=== PATIENT | female | born 1965 | race Caucasian/White ===

== ENCOUNTER 2018-03-16 14:00 | Inpatient (IN) | payer OTHER, MEDICAID, MEDICARE ==
[~2018-03-16] VITALS: Ht 170.2 cm; Wt 72.7 kg
[2018-03-16] VITALS (9 sets, daily range): BP systolic 90–149; BP diastolic 55–84; PULSE 100–114; RESP 16–22; TEMP 97.7–98.3; O2SAT 90–98
[2018-03-16] MEDS ORDERED: SODIUM CHLOR 0.9% 1000 ML INJ 1,000 ML IV SCH (14:45)
[2018-03-16] MEDS ORDERED: SODIUM CHLORIDE 0.9% FLUSH 10 ML FLUSH IV FLUSH PRN (14:45)
--- NOTE | 2018-03-16 15:05 | PD ---
HPI Chief Complaint: Altered Mental Status Time Seen by Provider: 14:35 Travel History International Travel<30 days: No Contact w/Intl Traveler<30days: No Traveled to known affect area: No History of Present Illness HPI Patient is a 53-year-old female presenting to the emergency department for evaluation of altered mental status. Per 's report patient has been confused for the last 3 days. He states she sleeps all day, he reports she has nightmares. He states that she often does not know where she is. Patient states that she feels confused and "out of it". She states she has not been eating or drinking well for the last few days, she reports left flank and left lower abdominal pain. She denies any current vomiting but states she felt nauseated and vomited a few days ago. She denies any fevers, chills, chest pain , shortness of breath. She states she has had a cough which is nonproductive. Symptom onset was gradual, symptoms are moderate in nature. No known exacerbating factors. Patient has her home medications with her, she has prescriptions for morphine and Xanax, she is uncertain when she had last taken either of these medications. PFSH Past Medical History Anxiety: Yes Depression: Yes GERD: Yes Hypertension: Yes Musculoskeletal: Yes (Chronic pain) ?: Unknown Social History Alcohol Use: No Tobacco Use: Yes Substance Use: No Allergies-Medications (Allergen,Severity, Reaction): Coded Allergies: No Known Allergies (Unverified , 03/16/18) Reported Meds & Prescriptions Reported Meds & Active Scripts Active Reported Ventolin Hfa 18 GM Inh (Albuterol Sulfate) 90 Mcg/Act Aer 1 Puff INH Q4H PRN Pantoprazole (Pantoprazole Sodium) 40 Mg Tab 40 Mg PO DAILY Atorvastatin (Atorvastatin Calcium) 40 Mg Tab 40 Mg PO HS Acyclovir 800 Mg Tab 800 Mg PO TID Abilify (Aripiprazole) 10 Mg Tab 5 Mg PO DAILY Morphabond ER 12 HR (Morphine Sulfate) 15 Mg Tab 15 Mg PO Q8HR Alprazolam 1 Mg Tab 1 Mg PO Q8H PRN Metoprolol Succinate ER 24 HR (Metoprolol Succinate) 25 Mg Tab 25 Mg PO DAILY Oxcarbazepine 150 Mg Tab 150 Mg PO BID Valsartan 320 Mg Tab 320 Mg PO DAILY Effexor (Venlafaxine HCl) 100 Mg Tab 150 Mg PO DAILY NEB Review of Systems Except as stated in HPI: all other systems reviewed are Neg General / Constitutional: No: Fever, Chills HENT: No: Headaches, Lightheadedness Cardiovascular: Positive: Tachycardia, No: Chest Pain or Discomfort Respiratory: Positive: Cough, Shortness of Breath Gastrointestinal: Positive: Nausea, Vomiting, Abdominal Pain Genitourinary: No: Dysuria Neurologic: Positive: Change in Mentation Physical Exam Narrative GENERAL: Well-developed, well-nourished, well-kept female. Presenting in no acute distress. SKIN: Warm and dry. HEAD: Atraumatic. Normocephalic. EYES: Pupils equal and round. No scleral icterus. No injection or drainage. Pinpoint pupils, extraocular movements are intact. ENT: No nasal bleeding or discharge. Mucous membranes pink and moist. NECK: Trachea midline. No JVD. CARDIOVASCULAR: Tachycardic RESPIRATORY: No accessory muscle use. Clear to auscultation. Breath sounds equal bilaterally. GASTROINTESTINAL: Abdomen soft, mildly tender to palpation in right upper quadrant and left lower quadrant, nondistended. Hepatic and splenic margins not palpable. No rebound, no guarding. MUSCULOSKELETAL: Extremities without clubbing, cyanosis, or edema. No obvious deformities. NEUROLOGICAL: Awake and alert, oriented to self, place and date but not year. No obvious cranial nerve deficits. Motor grossly within normal limits. Five out of 5 muscle strength in the arms and legs. Slightly slurred speech. PSYCHIATRIC: Appropriate mood and affect; insight and judgment normal. Data Data Last Documented VS Vital Signs Date Time Temp Pulse Resp B/P (MAP) Pulse Ox O2 Delivery O2 Flow Rate FiO2 03/16/18 18:03 106 18 149/84 (105) 95 Room Air 03/16/18 17:30 2.00 03/16/18 14:21 98.3 Orders Orders Blood Glucose (03/16/18 14:26) Oximetry (03/16/18 14:26) Iv Access Insert/Monitor (03/16/18 14:26) Ecg Monitoring (03/16/18 14:26) Oxygen Administration (03/16/18 14:26) Complete Blood Count With Diff (03/16/18 14:26) Comprehensive Metabolic Panel (03/16/18 14:26) Urinalysis - C+S If Indicated (03/16/18 14:26) Prothrombin Time / Inr (Pt) (03/16/18 14:26) Electrocardiogram (03/16/18 14:45) Lactic Acid Sepsis Protocol (03/16/18 14:45) Chest, Single Ap (03/16/18 14:45) Ct Brain W/O Iv Contrast(Rout) (03/16/18 14:45) Cath For Specimen (03/16/18 14:45) Sodium Chloride 0.9% Flush (Ns Flush) (03/16/18 14:45) Sodium Chlor 0.9% 1000 Ml Inj (Ns 1000 M (03/16/18 14:45) Drug Screen, Random Urine (03/16/18 14:45) Ct Abd/Pel W/O Iv Contrast (03/16/18 ) Sodium Chlor 0.9% 1000 Ml Inj (Ns 1000 M (03/16/18 16:00) Urine Culture (03/16/18 15:48) Piperacil-Tazo 3.375 Gm Premix (Zosyn 3. (03/16/18 17:45) Admit Order (Ed Use Only) (03/16/18 18:10) Labs Laboratory Tests Test 03/16/18 14:55 03/16/18 15:48 White Blood Count 12.1 TH/MM3 Red Blood Count 4.44 MIL/MM3 Hemoglobin 14.0 GM/DL Hematocrit 41.5 % Mean Corpuscular Volume 93.4 FL Mean Corpuscular Hemoglobin 31.5 PG Mean Corpuscular Hemoglobin Concent 33.7 % Red Cell Distribution Width 14.4 % Platelet Count 265 TH/MM3 Mean Platelet Volume 7.9 FL Neutrophils (%) (Auto) 83.0 % Lymphocytes (%) (Auto) 8.5 % Monocytes (%) (Auto) 7.7 % Eosinophils (%) (Auto) 0.7 % Basophils (%) (Auto) 0.1 % Neutrophils # (Auto) 10.0 TH/MM3 Lymphocytes # (Auto) 1.0 TH/MM3 Monocytes # (Auto) 0.9 TH/MM3 Eosinophils # (Auto) 0.1 TH/MM3 Basophils # (Auto) 0.0 TH/MM3 CBC Comment DIFF FINAL Differential Comment Prothrombin Time 10.0 SEC Prothromb Time International Ratio 1.0 RATIO Blood Urea Nitrogen 31 MG/DL Creatinine 8.95 MG/DL Random Glucose 100 MG/DL Total Protein 7.5 GM/DL Albumin 3.6 GM/DL Calcium Level 8.5 MG/DL Alkaline Phosphatase 171 U/L Aspartate Amino Transf (AST/SGOT) 54 U/L Alanine Aminotransferase (ALT/SGPT) 20 U/L Total Bilirubin 0.3 MG/DL Sodium Level 135 MEQ/L Potassium Level 4.7 MEQ/L Chloride Level 99 MEQ/L Carbon Dioxide Level 22.2 MEQ/L Anion Gap 14 MEQ/L Estimat Glomerular Filtration Rate 5 ML/MIN Lactic Acid Level 1.4 mmol/L Urine Color YELLOW Urine Turbidity CLOUDY Urine pH 5.5 Urine Specific [place] 1.023 Urine Protein 300 mg/dL Urine Glucose (UA) NEG mg/dL Urine Ketones NEG mg/dL Urine Occult Blood MOD Urine Nitrite NEG Urine Bilirubin NEG Urine Urobilinogen LESS THAN 2.0 MG/DL Urine Leukocyte Esterase LARGE Urine RBC 21 /hpf Urine WBC /hpf Urine Squamous Epithelial Cells <1 /hpf Urine Amorphous Sediment RARE Urine Bacteria MANY /hpf Microscopic Urinalysis Comment CULTURE INDICATED Urine Opiates Screen POS Urine Barbiturates Screen NEG Urine Amphetamines Screen NEG Urine Benzodiazepines Screen POS Urine Cocaine Screen NEG Urine Cannabinoids Screen NEG MDM Medical Decision Making Medical Screen Exam Complete: Yes Emergency Medical Condition: Yes Interpretation(s) Last Impressions Head CT 03/16/18 1445 Signed Impressions: CONCLUSION: Unremarkable study except for questionable white matter lucency bi laterally may represent small vessel ischemic changes. Chest X-Ray 03/16/18 1445 Signed Impressions: CONCLUSION: Negative examination. Abdomen/Pelvis CT 03/16/18 0000 Signed Impressions: CONCLUSION: 1. No acute abnormality. Laboratory Tests Test 03/16/18 14:55 03/16/18 15:48 White Blood Count 12.1 TH/MM3 Red Blood Count 4.44 MIL/MM3 Hemoglobin 14.0 GM/DL Hematocrit 41.5 % Mean Corpuscular Volume 93.4 FL Mean Corpuscular Hemoglobin 31.5 PG Mean Corpuscular Hemoglobin Concent 33.7 % Red Cell Distribution Width 14.4 % Platelet Count 265 TH/MM3 Mean Platelet Volume 7.9 FL Neutrophils (%) (Auto) 83.0 % Lymphocytes (%) (Auto) 8.5 % Monocytes (%) (Auto) 7.7 % Eosinophils (%) (Auto) 0.7 % Basophils (%) (Auto) 0.1 % Neutrophils # (Auto) 10.0 TH/MM3 Lymphocytes # (Auto) 1.0 TH/MM3 Monocytes # (Auto) 0.9 TH/MM3 Eosinophils # (Auto) 0.1 TH/MM3 Basophils # (Auto) 0.0 TH/MM3 CBC Comment DIFF FINAL Differential Comment Prothrombin Time 10.0 SEC Prothromb Time International Ratio 1.0 RATIO Blood Urea Nitrogen 31 MG/DL Creatinine 8.95 MG/DL Random Glucose 100 MG/DL Total Protein 7.5 GM/DL Albumin 3.6 GM/DL Calcium Level 8.5 MG/DL Alkaline Phosphatase 171 U/L Aspartate Amino Transf (AST/SGOT) 54 U/L Alanine Aminotransferase (ALT/SGPT) 20 U/L Total Bilirubin 0.3 MG/DL Sodium Level 135 MEQ/L Potassium Level 4.7 MEQ/L Chloride Level 99 MEQ/L Carbon Dioxide Level 22.2 MEQ/L Anion Gap 14 MEQ/L Estimat Glomerular Filtration Rate 5 ML/MIN Lactic Acid Level 1.4 mmol/L Urine Color YELLOW Urine Turbidity CLOUDY Urine pH 5.5 Urine Specific [place] 1.023 Urine Protein 300 mg/dL Urine Glucose (UA) NEG mg/dL Urine Ketones NEG mg/dL Urine Occult Blood MOD Urine Nitrite NEG Urine Bilirubin NEG Urine Urobilinogen LESS THAN 2.0 MG/DL Urine Leukocyte Esterase LARGE Urine RBC 21 /hpf Urine WBC /hpf Urine Squamous Epithelial Cells <1 /hpf Urine Amorphous Sediment RARE Urine Bacteria MANY /hpf Microscopic Urinalysis Comment CULTURE INDICATED Urine Opiates Screen POS Urine Barbiturates Screen NEG Urine Amphetamines Screen NEG Urine Benzodiazepines Screen POS Urine Cocaine Screen NEG Urine Cannabinoids Screen NEG Vital Signs Date Time Temp Pulse Resp B/P (MAP) Pulse Ox O2 Delivery O2 Flow Rate FiO2 03/16/18 18:03 106 18 149/84 (105) 95 Room Air 03/16/18 17:30 108 18 110/70 (83) 93 Nasal Cannula 2.00 03/16/18 16:50 100 22 108/64 (79) 95 Room Air 03/16/18 15:13 104 18 107/60 (76) 98 Room Air 03/16/18 15:06 107 18 98 Room Air 03/16/18 15:03 18 98 03/16/18 15:03 98 Room Air 03/16/18 14:21 98.3 112 16 90/55 (67) 92 Vital Signs Date Time Temp Pulse Resp B/P (MAP) Pulse Ox O2 Delivery O2 Flow Rate FiO2 03/16/18 14:21 98.3 112 16 90 (85) 92 Differential Diagnosis CVA versus TIA versus overdose versus metabolic abnormality versus hypoxia versus pneumonia versus pulmonary embolism versus other Narrative Course Patient is well-appearing 53-year-old female presenting for evaluation of altered mental status with her . On arrival patient was hypoxic with an O2 sat of 91% on room air, she was also tachycardic. Patient was placed on 2 L of oxygen via nasal cannula. Her sats rebounded to 94%. Patient is tender on exam to the abdomen. She has prescriptions for morphine and Xanax with her which could be contributing to the altered mentation. IV access established, patient placed on telemetry monitoring continuous pulse oximetry. Labs and imaging ordered and pending. CBC with white count 12.1 Lactic acid 1.4 Chemistry with BUN and creatinine 31/8.95 Urine drug screen is positive for opiates and benzodiazepines, both of which patient has prescriptions for. Urinalysis is consistent with a urinary tract infection, patient was given Zosyn IV. Patient is also received a total of 2 L of IV fluids. Altered mentation may be secondary to urinary tract infection, additionally patient is taking morphine and benzodiazepines that she is likely not clearing. This is possibly contributing to her altered mentation. Discussed findings with my attending physician. Findings were also discussed with patient and her . Patient will be admitted, Dr. Garcia accepted admission, admit orders placed. Sepsis Criteria SIRS Criteria (2 or more): Heart rate over 90, WBC > 07363, < 4000 or > 10% bands Sepsis Criteria (SIRS+source): Infect source susp/known Severe Sepsis (+one): Hypotension, Acute Oliguria/Renal Failure Diagnosis Primary Impression: Urinary tract infection Qualified Codes: N39.0 - Urinary tract infection, site not specified; R31.9 - Hematuria, unspecified Additional Impressions: Altered mental status Qualified Codes: R41.82 - Altered mental status, unspecified Acute renal failure Qualified Codes: N17.9 - Acute kidney failure, unspecified Sepsis Qualified Codes: A41.9 - Sepsis, unspecified organism Admitting Information Admitting Physician Requests: Admit Condition: Stable Shyla Cesar ADJUSTER LEADER Mar 16, 2018 15:05
[2018-03-16 15:18] LABS: BASOPHIL % 0.1 % (0.0-2.0); EOSINOPHIL # 0.1 TH/MM3 (0-0.4); EOSINOPHIL % 0.7 % (0.0-4.0); HEMATOCRIT 41.5 % (35.0-46.0); LYMPH % 8.5 % (9.0-44.0); MEAN CELL VOLUME 93.4 FL (80.0-100.0); MEAN CORPUSCULAR HEMOGLOBIN 31.5 PG (27.0-34.0); MEAN CORPUSCULAR HGB CONC 33.7 % (32.0-36.0); MEAN PLATELET VOLUME 7.9 FL (7.0-11.0); MONO % 7.7 % (0.0-8.0); MONOCYTE # 0.9 TH/MM3 (0-0.9); PLATELET COUNT 265 TH/MM3 (150-450); RED BLOOD COUNT 4.44 MIL/MM3 (4.00-5.30); RED CELL DISTRIBUTION WIDTH 14.4 % (11.6-17.2); WHITE BLOOD COUNT 12.1 TH/MM3 (4.0-11.0)
[2018-03-16] MEDS ORDERED: MORP-43 PO (15:19)
[2018-03-16] MEDS ORDERED: ATOR40TA16 PO (15:19)
[2018-03-16] MEDS ORDERED: VALS1TAB70 PO (15:19)
[2018-03-16] MEDS ORDERED: OXCA150T PO (15:19)
[2018-03-16] MEDS ORDERED: ALPR1TAB3 PO (15:19)
[2018-03-16] MEDS ORDERED: VENTAER INH (15:19)
[2018-03-16] MEDS ORDERED: METO1TAB42 PO (15:19)
[2018-03-16] MEDS ORDERED: PANT40TA3 PO (15:19)
[2018-03-16] MEDS ORDERED: ACYC800T PO (15:19)
[2018-03-16] MEDS ORDERED: ABIL10TA8 PO (15:19)
[2018-03-16] MEDS ORDERED: VENL100T PO (15:19)
[2018-03-16 15:37] LABS: ALBUMIN 3.6 GM/DL (3.4-5.0); ALT (GPT) 20 U/L (10-53); AST (GOT) 54 U/L (15-37); BICARBONATE 22.2 MEQ/L (21.0-32.0); BLOOD UREA NITROGEN 31 MG/DL (7-18); CALCIUM 8.5 MG/DL (8.5-10.1); CHLORIDE 99 MEQ/L (98-107); CREATININE 8.95 MG/DL (0.50-1.00); GLOMERULAR FILTRATION RATE 5 ML/MIN (>89); GLUCOSE,RANDOM 100 MG/DL (74-106); SODIUM (NA) 135 MEQ/L (136-145)
[2018-03-16 15:39] LABS: ALKALINE PHOSPHATASE 171 U/L (45-117); TOTAL BILIRUBIN ADULT 0.3 MG/DL (0.2-1.0); TOTAL PROTEIN 7.5 GM/DL (6.4-8.2)
--- NOTE | 2018-03-16 15:48 | RADRPT ---
EXAM DATE: 03/16/2018 3:42 PM EDT AGE/SEX: 53 years / Female INDICATIONS: Cough. CLINICAL DATA: This is the patient's initial encounter. Patient reports that signs and symptoms have been present for 1 day and indicates a pain score of 0/10. MEDICAL/SURGICAL HISTORY: None. None. COMPARISON: No prior [place] [facility] exams available for comparison. FINDINGS: A single AP view of the chest demonstrates the lungs to be symmetrically aerated without evidence of mass, infiltrate or effusion. The cardiomediastinal contours are unremarkable. Osseous structures a re intact. CONCLUSION: Negative examination. Electronically signed by: Joseluis Milan MD 03/16/2018 3:47 PM EDT
[2018-03-16] MEDS ORDERED: SODIUM CHLOR 0.9% 1000 ML INJ 1,000 ML IV ONE (16:00)
--- NOTE | 2018-03-16 17:27 | RADRPT ---
EXAM DATE: 03/16/2018 5:21 PM EDT AGE/SEX: 53 years / Female INDICATIONS: Altered mental status, headache. CLINICAL DATA: This is the patient's initial encounter. Patient reports that signs and symptoms have been present for 1 day and indicates a pain score of 5/10. MEDICAL/SURGICAL HISTORY: Hypertension. None. RADIATION DOSE: 56.35 CTDI (mGy) COMPARISON: No prior exams available for comparison. TECHNIQUE: CT of the head without contrast. Using automated exposure control and adjustment of the mA and/or kV according to patient size, radiation dose was kept as low as reasonably achievable to ob tain optimal diagnostic quality images. FINDINGS: There is no evidence for intracranial hemorrhage, mass effect, mass lesions, edema, or extra-axial fl uid collections. The visualized bony structures appear intact. The ventricles are normal size for t he patient's age. There are no signs of acute infarction for technique. Questionable white matter juan cencies identified bilaterally. CONCLUSION: Unremarkable study except for questionable white matter lucency bilaterally may represen t small vessel ischemic changes. Electronically signed by: Apollo Mckenna MD 03/16/2018 5:26 PM EDT
--- NOTE | 2018-03-16 17:27 | RADRPT ---
EXAM DATE: 03/16/2018 5:22 PM EDT AGE/SEX: 53 years / Female INDICATIONS: Abdominal pain, confusion. CLINICAL DATA: This is the patient's initial encounter. Patient reports that signs and symptoms have been present for 1 day and indicates a pain score of 5/10. MEDICAL/SURGICAL HISTORY: Hypertension. Gastroesophageal reflux disease. Umbilical hernia repa ir. RADIATION DOSE: 6.97 CTDI (mGy) COMPARISON: No prior exams available for comparison. TECHNIQUE: Multiple contiguous axial images were obtained through the abdomen. Images were obtained using multiple row detector helical technique. Using dose reduction techniques, radiation dose was ke pt as low as reasonably achievable to obtain optimal diagnostic quality images. FINDINGS: Lower Lungs: The visualized lower lungs are clear. Liver: The liver has a homogeneous density without space-occupying lesion. There is no dilation of th e biliary tree. Spleen: Homogeneous density without enlargement. Pancreas: Unremarkable without mass or calcification. Kidneys: Normal in size and shape. No evidence of mass or hydronephrosis. Adrenal Glands: Unremarkable. Aorta: The aorta and proximal iliac vessels are grossly unremarkable without aneurysmal dilation. Bowel/Mesentery: The appendix is normal by CT criteria. The bowel loops are grossly unremarkable. Th e cecum and sigmoid colon have a normal configuration. Abdominal Wall: Intact. Retroperitoneum: No evidence of adenopathy in the retrocrural, para-aortic, or deep pelvic regions. Bladder: Contours are smooth. Reproductive Organs: No abnormal masses or calcifications seen. Inguinal: The inguinal region is unremarkable without evidence of adenopathy. Bony Structures: Unremarkable. CONCLUSION: 1. No acute abnormality. Electronically signed by: Junior Quesada MD 03/16/2018 5:26 PM EDT
[2018-03-16 17:42] LABS: AMORPHOUS SEDIMENT, URINE RARE; BACTERIA, URINE MANY /hpf; BILIRUBIN, URINE NEG (NEG); BLOOD, URINE MOD (NEG); GLUCOSE,URINE NEG (NEG); KETONE, URINE NEG (NEG); NITRITE,URINE NEG (NEG); PH, URINE 5.5 (5.0-8.5); SQUAMOUS EPITHELIAL CELL URINE <1 /hpf (0-5); URINE COLOR YELLOW (YELLW/STRAW); URINE LEUKOCYTE ESTERASE LARGE (NEG)
[2018-03-16] MEDS ORDERED: PIPERACIL-TAZO 3.375 GM PREMIX 50 ML IV ONE (17:45)
[2018-03-16] MEDS ORDERED: SENNOSIDES 8.6 MG TAB PO PRN (18:15)
[2018-03-16] MEDS ORDERED: MORPHINE SULFATE 2 MG/ML SYRINGE IV PUSH PRN (18:15)
[2018-03-16] MEDS ORDERED: NALOXONE HCL 0.4 MG/ML AMP IV PUSH PRN (18:15)
[2018-03-16] MEDS: SODIUM CHLOR 0.9% 1000 ML INJ 1,000 ML IV SCH (18:54)
[2018-03-16] MEDS ORDERED: MORPHINE SULFATE 4 MG/ML INJ IV PUSH PRN (19:00)
--- NOTE | 2018-03-16 19:44 | PD.CONS ---
HPI Service Nephrology Consult Requested By Dr. Garcia Reason for Consult Acute renal failure Primary Care Physician Juan R Ruth M.D. History of Present Illness Patient is a 53-year-old white female with a history of anxiety, chronic pain syndrome, depression, on morphine and benzodiazepine has been found in altered mental status past several days and she has been sleeping for at least last 2 days without eating or drinking properly, patient was brought in with confusional state she is able to tell her name now and complain of pain in her knees, she is an acute renal failure creatinine of 8.9 She has previous admission in December with acute renal failure resolved with hydration, it may be a different hospital, patient recognized me on entering the room, I have seen her in the past. Review of Systems ROS Limitations: Clinical Condition Past Family Social History Allergies: Coded Allergies: No Known Allergies (Unverified , 03/16/18) Past Medical History History of renal failure in the past from which he recovered Hypertension Anxiety disorder Chronic pain syndrome Reported Medications Reported Meds & Active Scripts Active Reported Ventolin Hfa 18 GM Inh (Albuterol Sulfate) 90 Mcg/Act Aer 1 Puff INH Q4H PRN Pantoprazole (Pantoprazole Sodium) 40 Mg Tab 40 Mg PO DAILY Atorvastatin (Atorvastatin Calcium) 40 Mg Tab 40 Mg PO HS Acyclovir 800 Mg Tab 800 Mg PO TID Abilify (Aripiprazole) 10 Mg Tab 5 Mg PO DAILY Morphabond ER 12 HR (Morphine Sulfate) 15 Mg Tab 15 Mg PO Q8HR Alprazolam 1 Mg Tab 1 Mg PO Q8H PRN Metoprolol Succinate ER 24 HR (Metoprolol Succinate) 25 Mg Tab 25 Mg PO DAILY Oxcarbazepine 150 Mg Tab 150 Mg PO BID Valsartan 320 Mg Tab 320 Mg PO DAILY Effexor (Venlafaxine HCl) 100 Mg Tab 150 Mg PO DAILY NEB Active Ordered Medications Current Medications Medications (Trade) Dose Ordered Sig/Landry Route Start Time Stop Time Status Last Admin (NS Flush) 2 ml UNSCH PRN IV FLUSH 03/16/18 14:45 03/16/18 15:09 Sodium Chloride 1,000 ml @ 150 mls/hr Q6H40M IV 03/16/18 19:00 03/16/18 18:54 (Zofran Odt) 4 mg Q6H PRN PO 03/16/18 18:45 (Heparin Inj) 5,000 units Q8H SQ 03/16/18 20:00 (Narcan Inj) 0.4 mg UNSCH PRN IV PUSH 03/16/18 18:15 (Piper-Colace) 1 tab BID PO 03/16/18 21:00 (Senokot) 17.2 mg Q12H PRN PO 03/16/18 18:15 (Morphine Inj) 2 mg Q4H PRN IV PUSH 03/16/18 19:00 Family History Noncontributory Social History History of smoking Physical Exam Vital Signs Vital Signs Date Time Temp Pulse Resp B/P (MAP) Pulse Ox O2 Delivery O2 Flow Rate FiO2 03/16/18 19:23 97.7 103 20 131/84 (100) 95 03/16/18 18:03 106 18 149/84 (105) 95 Room Air 03/16/18 17:30 108 18 110/70 (83) 93 Nasal Cannula 2.00 03/16/18 16:50 100 22 108/64 (79) 95 Room Air 03/16/18 15:13 104 18 107/60 (76) 98 Room Air 03/16/18 15:06 107 18 98 Room Air 03/16/18 15:03 18 98 03/16/18 15:03 98 Room Air 03/16/18 14:21 98.3 112 16 90/55 (67) 92 Physical Exam GENERAL: Well-nourished, well-developed confused patient. SKIN: Cold/dry. HEAD: Normocephalic. Mucous membrane dry EYES: No scleral icterus. No injection or drainage. NECK: Supple, trachea midline. No JVD or lymphadenopathy. CARDIOVASCULAR: Regular rate and rhythm without murmurs, gallops, or rubs. RESPIRATORY: Breath sounds equal bilaterally. No accessory muscle use. GASTROINTESTINAL: Abdomen soft, non-tender, nondistended. EXTREMITIES: No cyanosis, or edema. NEUROLOGICAL: Awake, alert, patient is confused but able to recognize me. Laboratory Laboratory Tests Test 03/16/18 14:55 03/16/18 15:48 White Blood Count 12.1 Red Blood Count 4.44 Hemoglobin 14.0 Hematocrit 41.5 Mean Corpuscular Volume 93.4 Mean Corpuscular Hemoglobin 31.5 Mean Corpuscular Hemoglobin Concent 33.7 Red Cell Distribution Width 14.4 Platelet Count 265 Mean Platelet Volume 7.9 Neutrophils (%) (Auto) 83.0 Lymphocytes (%) (Auto) 8.5 Monocytes (%) (Auto) 7.7 Eosinophils (%) (Auto) 0.7 Basophils (%) (Auto) 0.1 Neutrophils # (Auto) 10.0 Lymphocytes # (Auto) 1.0 Monocytes # (Auto) 0.9 Eosinophils # (Auto) 0.1 Basophils # (Auto) 0.0 CBC Comment DIFF FINAL Differential Comment Prothrombin Time 10.0 Prothromb Time International Ratio 1.0 Blood Urea Nitrogen 31 Creatinine 8.95 Random Glucose 100 Total Protein 7.5 Albumin 3.6 Calcium Level 8.5 Alkaline Phosphatase 171 Aspartate Amino Transf (AST/SGOT) 54 Alanine Aminotransferase (ALT/SGPT) 20 Total Bilirubin 0.3 Sodium Level 135 Potassium Level 4.7 Chloride Level 99 Carbon Dioxide Level 22.2 Anion Gap 14 Estimat Glomerular Filtration Rate 5 Lactic Acid Level 1.4 Urine Color YELLOW Urine Turbidity CLOUDY Urine pH 5.5 Urine Specific [place] 1.023 Urine Protein 300 Urine Glucose (UA) NEG Urine Ketones NEG Urine Occult Blood MOD Urine Nitrite NEG Urine Bilirubin NEG Urine Urobilinogen LESS THAN 2.0 Urine Leukocyte Esterase LARGE Urine RBC 21 Urine WBC Urine Squamous Epithelial Cells <1 Urine Amorphous Sediment RARE Urine Bacteria MANY Microscopic Urinalysis Comment CULTURE INDICATED Urine Opiates Screen POS Urine Barbiturates Screen NEG Urine Amphetamines Screen NEG Urine Benzodiazepines Screen POS Urine Cocaine Screen NEG Urine Cannabinoids Screen NEG Date/Time Source Procedure Growth Status 03/16/18 15:48 Urine Random Urine Urine Culture Pending Received Result Diagram: 03/16/18 1455 03/16/18 1455 Imaging Last Impressions Head CT 03/16/18 1445 Signed Impressions: CONCLUSION: Unremarkable study except for questionable white matter lucency bi laterally may represent small vessel ischemic changes. Chest X-Ray 03/16/18 1445 Signed Impressions: CONCLUSION: Negative examination. Abdomen/Pelvis CT 03/16/18 0000 Signed Impressions: CONCLUSION: 1. No acute abnormality. Assessment and Plan Problem List: (1) Acute renal failure ICD Codes: N17.9 - Acute kidney failure, unspecified Status: Acute Plan: Patient has previous admission in December and the [facility] and has seen me with acute renal failure dehydration Responded to fluids She is on pain medication and antianxiety medication and the combination may have caused her to become more confused and she developed urinary tract infection Patient is going to get Zosyn I will order ultrasound Espino catheter Urine sodium and creatinine Follow urine cultures (2) Urinary tract infection ICD Codes: N39.0 - Urinary tract infection, site not specified Status: Acute Plan: Zosyn order (3) Sepsis ICD Codes: A41.9 - Sepsis, unspecified organism Status: Acute Plan: He is urinary tract infection (4) Altered mental status ICD Codes: R41.82 - Altered mental status, unspecified Status: Acute Plan: Underlying sepsis Problem Qualifiers (1) Acute renal failure: Qualified Codes: N17.9 - Acute kidney failure, unspecified (2) Urinary tract infection: Qualified Codes: N39.0 - Urinary tract infection, site not specified; R31.9 - Hematuria, unspecified (3) Sepsis: Qualified Codes: A41.9 - Sepsis, unspecified organism (4) Altered mental status: Qualified Codes: R41.82 - Altered mental status, unspecified Anselmo Grissom MD Mar 16, 2018 19:44
--- NOTE | 2018-03-16 19:49 | PD ---
Physical Exam Date Seen by Provider: Mar 16, 2018 Time Seen by Provider: 18:00 Narrative I, Dr. Mansfield, have reviewed the advance practice practitioner's documentation and am in agreement, met with the patient face to face, made the diagnosis, and the medical decision making was done by me. *My assessment and Findings: Patient seen and evaluated with PA, please see PA notes for further details. She is coming in with altered mental status, falls, general weakness, and has had frequent UTIs according to family. On exam, she has no focal deficits but does have some disorientation. Cardiac, pulmonary, abdominal exam was fairly unremarkable. Lab work shows significant leukocytosis and is significant for acute renal injury as well as UTI. IV antibiotics and IV fluids are initiated in the ER. CT the brain did not show any signs of acute intracranial processes. Planning to admit for further treatment with hospital service. Laboratory Tests Test 03/16/18 14:55 03/16/18 15:48 White Blood Count 12.1 TH/MM3 (4.0-11.0) Neutrophils (%) (Auto) 83.0 % (16.0-70.0) Lymphocytes (%) (Auto) 8.5 % (9.0-44.0) Neutrophils # (Auto) 10.0 TH/MM3 (1.8-7.7) Blood Urea Nitrogen 31 MG/DL (7-18) Creatinine 8.95 MG/DL (0.50-1.00) Alkaline Phosphatase 171 U/L (45-117) Aspartate Amino Transf (AST/SGOT) 54 U/L (15-37) Sodium Level 135 MEQ/L (136-145) Estimat Glomerular Filtration Rate 5 ML/MIN (>89) Urine Turbidity CLOUDY (CLEAR) Urine Protein 300 mg/dL (NEG-TRACE) Urine Occult Blood MOD (NEG) Urine Leukocyte Esterase LARGE (NEG) Urine RBC 21 /hpf (0-3) Urine Bacteria MANY /hpf (NONE) Urine Opiates Screen POS (NEG) Urine Benzodiazepines Screen POS (NEG) Last [address] 03/16/18 1445 Signed Impressions: CONCLUSION: Unremarkable study except for questionable white matter lucency bi laterally may represent small vessel ischemic changes. Chest X-Ray 03/16/18 1445 Signed Impressions: CONCLUSION: Negative examination. Abdomen/Pelvis CT 03/16/18 0000 Signed Impressions: CONCLUSION: 1. No acute abnormality. Data Data Last Documented VS Vital Signs Date Time Temp Pulse Resp B/P (MAP) Pulse Ox O2 Delivery O2 Flow Rate FiO2 03/16/18 18:03 106 18 149/84 (105) 95 Room Air 03/16/18 17:30 2.00 03/16/18 14:21 98.3 Orders Orders Blood Glucose (03/16/18 14:26) Oximetry (03/16/18 14:26) Iv Access Insert/Monitor (03/16/18 14:26) Ecg Monitoring (03/16/18 14:26) Oxygen Administration (03/16/18 14:26) Complete Blood Count With Diff (03/16/18 14:26) Comprehensive Metabolic Panel (03/16/18 14:26) Urinalysis - C+S If Indicated (03/16/18 14:26) Prothrombin Time / Inr (Pt) (03/16/18 14:26) Electrocardiogram (03/16/18 14:45) Lactic Acid Sepsis Protocol (03/16/18 14:45) Chest, Single Ap (03/16/18 14:45) Ct Brain W/O Iv Contrast(Rout) (03/16/18 14:45) Cath For Specimen (03/16/18 14:45) Sodium Chloride 0.9% Flush (Ns Flush) (03/16/18 14:45) Sodium Chlor 0.9% 1000 Ml Inj (Ns 1000 M (03/16/18 14:45) Drug Screen, Random Urine (03/16/18 14:45) Ct Abd/Pel W/O Iv Contrast (03/16/18 ) Sodium Chlor 0.9% 1000 Ml Inj (Ns 1000 M (03/16/18 16:00) Urine Culture (03/16/18 15:48) Piperacil-Tazo 3.375 Gm Premix (Zosyn 3. (03/16/18 17:45) Admit Order (Ed Use Only) (03/16/18 18:10) Labs Laboratory Tests Test 03/16/18 14:55 03/16/18 15:48 White Blood Count 12.1 TH/MM3 Red Blood Count 4.44 MIL/MM3 Hemoglobin 14.0 GM/DL Hematocrit 41.5 % Mean Corpuscular Volume 93.4 FL Mean Corpuscular Hemoglobin 31.5 PG Mean Corpuscular Hemoglobin Concent 33.7 % Red Cell Distribution Width 14.4 % Platelet Count 265 TH/MM3 Mean Platelet Volume 7.9 FL Neutrophils (%) (Auto) 83.0 % Lymphocytes (%) (Auto) 8.5 % Monocytes (%) (Auto) 7.7 % Eosinophils (%) (Auto) 0.7 % Basophils (%) (Auto) 0.1 % Neutrophils # (Auto) 10.0 TH/MM3 Lymphocytes # (Auto) 1.0 TH/MM3 Monocytes # (Auto) 0.9 TH/MM3 Eosinophils # (Auto) 0.1 TH/MM3 Basophils # (Auto) 0.0 TH/MM3 CBC Comment DIFF FINAL Differential Comment Prothrombin Time 10.0 SEC Prothromb Time International Ratio 1.0 RATIO Blood Urea Nitrogen 31 MG/DL Creatinine 8.95 MG/DL Random Glucose 100 MG/DL Total Protein 7.5 GM/DL Albumin 3.6 GM/DL Calcium Level 8.5 MG/DL Alkaline Phosphatase 171 U/L Aspartate Amino Transf (AST/SGOT) 54 U/L Alanine Aminotransferase (ALT/SGPT) 20 U/L Total Bilirubin 0.3 MG/DL Sodium Level 135 MEQ/L Potassium Level 4.7 MEQ/L Chloride Level 99 MEQ/L Carbon Dioxide Level 22.2 MEQ/L Anion Gap 14 MEQ/L Estimat Glomerular Filtration Rate 5 ML/MIN Lactic Acid Level 1.4 mmol/L Urine Color YELLOW Urine Turbidity CLOUDY Urine pH 5.5 Urine Specific [place] 1.023 Urine Protein 300 mg/dL Urine Glucose (UA) NEG mg/dL Urine Ketones NEG mg/dL Urine Occult Blood MOD Urine Nitrite NEG Urine Bilirubin NEG Urine Urobilinogen LESS THAN 2.0 MG/DL Urine Leukocyte Esterase LARGE Urine RBC 21 /hpf Urine WBC /hpf Urine Squamous Epithelial Cells <1 /hpf Urine Amorphous Sediment RARE Urine Bacteria MANY /hpf Microscopic Urinalysis Comment CULTURE INDICATED Urine Opiates Screen POS Urine Barbiturates Screen NEG Urine Amphetamines Screen NEG Urine Benzodiazepines Screen POS Urine Cocaine Screen NEG Urine Cannabinoids Screen NEG MDM Medical Record Reviewed: Yes Supervised Visit with JUAN CARLOS: Yes Diagnosis Primary Impression: Urinary tract infection Qualified Codes: N39.0 - Urinary tract infection, site not specified; R31.9 - Hematuria, unspecified Additional Impressions: Acute renal failure Qualified Codes: N17.9 - Acute kidney failure, unspecified Sepsis Qualified Codes: A41.9 - Sepsis, unspecified organism Altered mental status Qualified Codes: R41.82 - Altered mental status, unspecified Admitting Information Admitting Physician Requests: Admit Condition: Stable Daija Mansfield MD Mar 16, 2018 19:49
--- NOTE | 2018-03-16 20:37 | HHI.HP ---
HPI Service [facility] Primary Care Physician Juan R Ruth M.D. Admission Diagnosis Acute renal failure, urinary tract infection, altered mental status Diagnoses: Chief Complaint: AMS Travel History International Travel<30 Days: No Contact w/Intl Traveler <30 Da: No Traveled to Known Affected Are: No History of Present Illness 53 y/o female with a history of anxiety, seizures, depression, chronic pain presents to the ED with AMS. Patient was brought in by her who states she has been confused for the last 3 days. Upon examination patient is confused only oriented x 1 and is clinching her fists and flexing her feet intermittently. When asked questions she just mumbles and does not make any sense. She is able to follow commands. is not as bedside for questioning. Per ER report patients husbands states she has been sleeping al ot and not eating or drinking. The patient does take morphine and Xanax at home and it is unsure if she took more than she should have. Review of Systems Except as stated in HPI: all other systems reviewed are Neg Past Family Social History Past Medical History Per EMR: Anxiety Depression Chronic pain Past Surgical History unable to obtain Reported Medications Reported Meds & Active Scripts Active Reported Ventolin Hfa 18 GM Inh (Albuterol Sulfate) 90 Mcg/Act Aer 1 Puff INH Q4H PRN Pantoprazole (Pantoprazole Sodium) 40 Mg Tab 40 Mg PO DAILY Atorvastatin (Atorvastatin Calcium) 40 Mg Tab 40 Mg PO HS Acyclovir 800 Mg Tab 800 Mg PO TID Abilify (Aripiprazole) 10 Mg Tab 5 Mg PO DAILY Morphabond ER 12 HR (Morphine Sulfate) 15 Mg Tab 15 Mg PO Q8HR Alprazolam 1 Mg Tab 1 Mg PO Q8H PRN Metoprolol Succinate ER 24 HR (Metoprolol Succinate) 25 Mg Tab 25 Mg PO DAILY Oxcarbazepine 150 Mg Tab 150 Mg PO BID Valsartan 320 Mg Tab 320 Mg PO DAILY Effexor (Venlafaxine HCl) 100 Mg Tab 150 Mg PO DAILY NEB Allergies: Coded Allergies: No Known Allergies (Unverified , 6/6/18) Active Ordered Medications Current Medications Medications (Trade) Dose Ordered Sig/Landry Route Start Time Stop Time Status Last Admin (NS Flush) 2 ml UNSCH PRN IV FLUSH 03/16/18 14:45 03/16/18 15:09 Sodium Chloride 1,000 ml @ 150 mls/hr Q6H40M IV 03/16/18 19:00 03/16/18 18:54 (Zofran Odt) 4 mg Q6H PRN PO 03/16/18 18:45 (Heparin Inj) 5,000 units Q8H SQ 03/16/18 20:00 (Narcan Inj) 0.4 mg UNSCH PRN IV PUSH 03/16/18 18:15 (Piper-Colace) 1 tab BID PO 03/16/18 21:00 (Senokot) 17.2 mg Q12H PRN PO 03/16/18 18:15 (Morphine Inj) 2 mg Q4H PRN IV PUSH 03/16/18 19:00 Family History unable to obtain Social History unable to obtain Physical Exam Vital Signs Vital Signs Date Time Temp Pulse Resp B/P (MAP) Pulse Ox O2 Delivery O2 Flow Rate FiO2 03/16/18 19:23 97.7 103 20 131/84 (100) 95 03/16/18 18:03 106 18 149/84 (105) 95 Room Air 03/16/18 17:30 108 18 110/70 (83) 93 Nasal Cannula 2.00 03/16/18 16:50 100 22 108/64 (79) 95 Room Air 03/16/18 15:13 104 18 107/60 (76) 98 Room Air 03/16/18 15:06 107 18 98 Room Air 03/16/18 15:03 18 98 03/16/18 15:03 98 Room Air 03/16/18 14:21 98.3 112 16 90/55 (67) 92 Physical Exam GENERAL: This is a well-nourished, well-developed patient, in no apparent distress. SKIN: No rashes, ecchymoses or lesions. Cool and dry. HEAD: Atraumatic. Normocephalic. EYES: Pupils equal round and slow to react CARDIOVASCULAR: Regular rate and rhythm without murmurs, gallops, or rubs. RESPIRATORY: Clear to auscultation. Breath sounds equal bilaterally. No wheezes , rales, or rhonchi. GASTROINTESTINAL: Abdomen soft, non-tender, nondistended.No guarding. MUSCULOSKELETAL: Extremities without clubbing, cyanosis, or edema. No calf tenderness. NEUROLOGICAL: Awake and confused, oriented to self. Fist clinching, fine motor twitching. Normal speech. Laboratory Laboratory Tests Test 03/16/18 14:55 03/16/18 15:48 White Blood Count 12.1 Red Blood Count 4.44 Hemoglobin 14.0 Hematocrit 41.5 Mean Corpuscular Volume 93.4 Mean Corpuscular Hemoglobin 31.5 Mean Corpuscular Hemoglobin Concent 33.7 Red Cell Distribution Width 14.4 Platelet Count 265 Mean Platelet Volume 7.9 Neutrophils (%) (Auto) 83.0 Lymphocytes (%) (Auto) 8.5 Monocytes (%) (Auto) 7.7 Eosinophils (%) (Auto) 0.7 Basophils (%) (Auto) 0.1 Neutrophils # (Auto) 10.0 Lymphocytes # (Auto) 1.0 Monocytes # (Auto) 0.9 Eosinophils # (Auto) 0.1 Basophils # (Auto) 0.0 CBC Comment DIFF FINAL Differential Comment Prothrombin Time 10.0 Prothromb Time International Ratio 1.0 Blood Urea Nitrogen 31 Creatinine 8.95 Random Glucose 100 Total Protein 7.5 Albumin 3.6 Calcium Level 8.5 Alkaline Phosphatase 171 Aspartate Amino Transf (AST/SGOT) 54 Alanine Aminotransferase (ALT/SGPT) 20 Total Bilirubin 0.3 Sodium Level 135 Potassium Level 4.7 Chloride Level 99 Carbon Dioxide Level 22.2 Anion Gap 14 Estimat Glomerular Filtration Rate 5 Lactic Acid Level 1.4 Urine Color YELLOW Urine Turbidity CLOUDY Urine pH 5.5 Urine Specific [place] 1.023 Urine Protein 300 Urine Glucose (UA) NEG Urine Ketones NEG Urine Occult Blood MOD Urine Nitrite NEG Urine Bilirubin NEG Urine Urobilinogen LESS THAN 2.0 Urine Leukocyte Esterase LARGE Urine RBC 21 Urine WBC Urine Squamous Epithelial Cells <1 Urine Amorphous Sediment RARE Urine Bacteria MANY Microscopic Urinalysis Comment CULTURE INDICATED Urine Opiates Screen POS Urine Barbiturates Screen NEG Urine Amphetamines Screen NEG Urine Benzodiazepines Screen POS Urine Cocaine Screen NEG Urine Cannabinoids Screen NEG Date/Time Source Procedure Growth Status 03/16/18 15:48 Urine Random Urine Urine Culture Pending Received Result Diagram: 03/16/18 1455 03/16/18 1455 Imaging Last Impressions Brain MRI 6/6/18 2202 Signed Impressions: CONCLUSION: 1. No acute findings. No recent infarct. Mild white matter ischemic changes in the periventricular region. Head CT 03/16/18 1445 Signed Impressions: CONCLUSION: Unremarkable study except for questionable white matter lucency bi laterally may represent small vessel ischemic changes. Chest X-Ray 03/16/18 1445 Signed Impressions: CONCLUSION: Negative examination. Abdomen/Pelvis CT 03/16/18 0000 Signed Impressions: CONCLUSION: 1. No acute abnormality. Caprini VTE Risk Assessment Caprini VTE Risk Assessment: Mod/High Risk (score >= 2) Caprini Risk Assessment Model Point Value = 1 Point Value = 2 Point Value = 3 Point Value = 5 Age 41-60 Minor surgery BMI > 25 kg/m2 Swollen legs Varicose veins or History of unexplained or recurrent spontaneous Oral contraceptives or hormone replacement Sepsis (< 1 month) Serious lung disease, including pneumonia (< 1 month) Abnormal pulmonary function Acute myocardial infarction Congestive heart failure (< 1 month) History of inflammatory bowel disease Medical patient at bed rest Age 61-74 Arthroscopic surgery Major open surgery (> 45 min) Laparoscopic surgery (> 45 min) Malignancy Confined to bed (> 72 hours) Immobilizing plaster cast Central venous access Age >= 75 History of VTE Family history of VTE Factor V Leiden Prothrombin [id number] Lupus anticoagulant Anticardiolipin antibodies Elevated serum homocysteine Heparin-induced thrombocytopenia Other congenital or acquired thrombophilia Stroke (< 1 month) Elective arthroplasty Hip, pelvis, or leg fracture Acute spinal cord injury (< 1 month) Prophylaxis Regimen Total Risk Factor Score Risk Level Prophylaxis Regimen 0-1 Low Early ambulation 2 Moderate Order ONE of the following: *Sequential Compression Device (SCD) *Heparin 5000 units SQ BID 3-4 Higher Order ONE of the following medications: *Heparin 5000 units SQ TID *Enoxaparin/Lovenox 40 mg SQ daily (WT < 150 kg, CrCl > 30 mL/min) *Enoxaparin/Lovenox 30 mg SQ daily (WT < 150 kg, CrCl > 10-29 mL/min) *Enoxaparin/Lovenox 30 mg SQ BID (WT < 150 kg, CrCl > 30 mL/min) AND/OR *Sequential Compression Device (SCD) 5 or more Highest Order ONE of the following medications: *Heparin 5000 units SQ TID (Preferred with Epidurals) *Enoxaparin/Lovenox 40 mg SQ daily (WT < 150 kg, CrCl > 30 mL/min) *Enoxaparin/Lovenox 30 mg SQ daily (WT < 150 kg, CrCl > 10-29 mL/min) *Enoxaparin/Lovenox 30 mg SQ BID (WT < 150 kg, CrCl > 30 mL/min) AND *Sequential Compression Device (SCD) Assessment and Plan Assessment and Plan 53 y/o female with a history of anxiety, depression, chronic pain presents to the ED with AMS. Sepsis, source UTI, Wbc 12.1, tachycardia -Zosyn IV Q6H -Urine culture pending -CBC in am Toxic encephalopathy, possibly due to pain medication and ARF Head CT reviewed and unremarkable -MRI/MRA ordered -Hold home medications -Ativan for withdraw -EEG ordered -Consult neuro if mentation does not improve with kidney function Acute Renal Failure, creatine 8.9 with rhabdomyolysis CPK 2095 -IVF for hydration -Consult nephrology -avoid nephrotoxins -Trend creatine and cpk Seizures, chronic -Resume home medications -Seizure precautions Anxiety -Resume home medications when kidney function improves -Ativan for withdrawals DVT prophylaxis: Heparin Discussed Condition With Patient and RN Physician Certification 2 Midnight Certification Type: Admission for Inpatient Services Order for Inpatient Services The services are ordered in accordance with Medicare regulations or non- Medicare payer requirements, as applicable. In the case of services not specified as inpatient-only, they are appropriately provided as inpatient services in accordance with the 2-midnight benchmark. Estimated LOS (days): 2 days is the estimated time the patient will need to remain in the hospital, assuming treatment plan goals are met and no additional complications. Post-Hospital Plan: Home Shruthi Crum Mar 16, 2018 20:37
[2018-03-16 20:46] LABS: CREATININE, RANDOM URINE 242.7 MG/DL
[2018-03-16] MEDS: HEPARIN SODIUM - SQ 10,000 UNITS/ML VIAL SQ SCH (21:58)
[2018-03-16] MEDS: DOCUSATE SODIUM 50 MG/SENNA 8.6 MG TAB PO SCH (22:02)
[2018-03-16] MEDS ORDERED: LORazepam 2 MG/ML VIAL IV PUSH ONE (22:15)
[2018-03-17] VITALS (13 sets, daily range): BP systolic 90–134; BP diastolic 52–72; PULSE 99–108; RESP 17–20; TEMP 97.9–99.1; O2SAT 92–95
--- NOTE | 2018-03-17 00:05 | RADRPT ---
EXAM DATE: 03/16/2018 11:48 PM EDT AGE/SEX: 53 years / Female INDICATIONS: Altered mental status. Stroke CLINICAL DATA: This is the patient's initial encounter. Patient reports that signs and symptoms have been present for 1 day and indicates a pain score of Nonresponsive. MEDICAL/SURGICAL HISTORY: . BUN & Creatine levels elevated currently Non-responsive. COMPARISON: No prior exams available for comparison. TECHNIQUE: Multiplanar, multisequence examination of the brain was performed without contrast. FINDINGS: No intracranial mass, hemorrhage or shift. No hydrocephalus. No abnormal extra-axial fluid collection s. Mild white matter ischemic changes. No sellar mass. CONCLUSION: 1. No acute findings. No recent infarct. Mild white matter ischemic changes in the periventricular r egion. Electronically signed by: Art Palacios MD 03/17/2018 12:03 AM EDT
--- NOTE | 2018-03-17 00:39 | RADRPT ---
EXAM DATE: 03/17/2018 12:08 AM EDT AGE/SEX: 53 years / Female INDICATIONS: Altered mental status. stroke alert CLINICAL DATA: This is the patient's initial encounter. Patient reports that signs and symptoms have been present for 1 day and indicates a pain score of Nonresponsive. MEDICAL/SURGICAL HISTORY: . BUN & Creatine levels elevated currently Non-responsive. COMPARISON: No prior exams available for comparison. TECHNIQUE: 3D [id number] MRA was performed. Source images, multiplanar STS MIP, and 3D volum e MIP reconstructions were reviewed. FINDINGS: The right vertebral artery is dominant. Mild stenosis proximal basilar artery. Posterior cerebral art eries are patent. There is some atherosclerotic irregularity of the distal internal carotid arteries. Anterior cerebral arteries are patent. Right middle cerebral artery is patent. There is a questionab le focal stenosis distal left middle cerebral artery. CONCLUSION: 1. Probable moderate stenosis distal left middle cerebral artery. Mild stenosis proximal basilar art riley. Electronically signed by: Art Palacios MD 03/17/2018 12:38 AM EDT
[2018-03-17] MEDS: SODIUM CHLOR 0.9% 1000 ML INJ 1,000 ML IV SCH ×3 (03:12→18:41)
[2018-03-17] MEDS: HEPARIN SODIUM - SQ 10,000 UNITS/ML VIAL SQ SCH ×3 (04:39→20:00)
[2018-03-17] MEDS: PIPERACIL-TAZO 3.375 GM PREMIX 50 ML IV SCH ×3 (05:33→12:56)
[2018-03-17 06:25] LABS: AUTOMATED NEUTROPHIL # 9.5 TH/MM3 (1.8-7.7); BASOPHIL % 0.2 % (0.0-2.0); EOSINOPHIL % 0.4 % (0.0-4.0); HEMATOCRIT 36.6 % (35.0-46.0); HEMOGLOBIN 12.3 GM/DL (11.6-15.3); LYMPH % 8.5 % (9.0-44.0); MEAN CELL VOLUME 92.7 FL (80.0-100.0); MEAN CORPUSCULAR HEMOGLOBIN 31.3 PG (27.0-34.0); MEAN CORPUSCULAR HGB CONC 33.7 % (32.0-36.0); MEAN PLATELET VOLUME 8.1 FL (7.0-11.0); MONOCYTE # 0.9 TH/MM3 (0-0.9); NEUT % 82.9 % (16.0-70.0); PLATELET COUNT 240 TH/MM3 (150-450); RED BLOOD COUNT 3.95 MIL/MM3 (4.00-5.30); RED CELL DISTRIBUTION WIDTH 13.8 % (11.6-17.2); WHITE BLOOD COUNT 11.5 TH/MM3 (4.0-11.0)
[2018-03-17 07:05] LABS: BICARBONATE 16.8 MEQ/L (21.0-32.0); CALCIUM 7.8 MG/DL (8.5-10.1)
[2018-03-17] MEDS: DOCUSATE SODIUM 50 MG/SENNA 8.6 MG TAB PO SCH (09:00)
[2018-03-17] MEDS: METOPROLOL SUCCINATE 25 MG EXTENDED RELEASE TAB PO SCH (09:00)
[2018-03-17] MEDS: VALSARTAN 160 MG TAB PO SCH (09:00)
[2018-03-17] MEDS: OXcarbazepine 150 MG TAB PO SCH ×2 (09:00→20:52)
--- NOTE | 2018-03-17 09:21 | RADRPT ---
EXAM DATE: 03/17/2018 8:34 AM EDT AGE/SEX: 53 years / Female INDICATIONS: Increased BUN/creatinine. CLINICAL DATA: This is the patient's initial encounter. Patient reports that signs and symptoms have been present for 1 day and indicates a pain score of Nonresponsive. MEDICAL/SURGICAL HISTORY: Hypertension. Gastroesophageal reflux disease. Chronic pain. Tobacco use. Depression. Anxiety. . Unable to obtain. COMPARISON: No prior exams available for comparison. Increased Bun and Creatinine. MEASUREMENTS: Right Kidney:__11.7 x 6.8 x 6.4 cm Left Kidney:__13.0 x 6.5 x 6.7 cm FINDINGS: Right Kidney: Normal Left Kidney: Tiny lower pole cyst. No hydronephrosis Bladder: Within normal limits given the degree of distension. CONCLUSION: Unremarkable sonographic appearance of the kidneys. Electronically signed by: Joseluis Milan MD 03/17/2018 9:19 AM EDT
--- NOTE | 2018-03-17 13:16 | HHI.PR ---
Subjective Remarks Follow-up sepsis/acute metabolic toxic encephalopathy/acute kidney injury March 17, 2018-patient seen and examined, lethargic responded to sternal rub and able to state her name. Currently afebrile Objective Vitals Vital Signs Date Time Temp Pulse Resp B/P (MAP) Pulse Ox O2 Delivery O2 Flow Rate FiO2 03/17/18 12:03 98.7 102 18 101/59 (73) 92 03/17/18 08:03 99.1 103 17 93/52 (66) 92 03/17/18 04:02 105 03/17/18 04:00 98.1 108 17 117/56 (76) 94 03/17/18 00:02 108 03/17/18 00:00 98.3 102 17 90/52 (65) 95 03/16/18 20:00 98.0 114 17 120/72 (88) 90 03/16/18 19:46 112 03/16/18 19:23 97.7 103 20 131/84 (100) 95 03/16/18 18:03 106 18 149/84 (105) 95 Room Air 03/16/18 17:30 108 18 110/70 (83) 93 Nasal Cannula 2.00 03/16/18 16:50 100 22 108/64 (79) 95 Room Air 03/16/18 15:13 104 18 107/60 (76) 98 Room Air 03/16/18 15:06 107 18 98 Room Air 03/16/18 15:03 18 98 03/16/18 15:03 98 Room Air 03/16/18 14:21 98.3 112 16 90/55 (67) 92 I/O 03/16/18 03/16/18 03/16/18 03/17/18 03/17/18 03/17/18 07:00 15:00 23:00 07:00 15:00 23:00 Intake Total 0 ml Balance 0 ml Intake Oral 0 ml # Voids 1 # Bowel Movements 0 Result Diagram: 03/17/1852403/17/18524 Imaging Last Impressions Renal Ultrasound 03/17/18 0000 Signed Impressions: CONCLUSION: Unremarkable sonographic appearance of the kidneys. Head Magnetic Resonance Angiography 03/16/182201 Signed Impressions: CONCLUSION: 1. Probable moderate stenosis distal left middle cerebral artery. Mild stenosi s proximal basilar artery. Brain MRI 6/6/18 2202 Signed Impressions: CONCLUSION: 1. No acute findings. No recent infarct. Mild white matter ischemic changes in the periventricular region. Head CT 03/16/18 1445 Signed Impressions: CONCLUSION: Unremarkable study except for questionable white matter lucency bi laterally may represent small vessel ischemic changes. Chest X-Ray 03/16/18 1445 Signed Impressions: CONCLUSION: Negative examination. Abdomen/Pelvis CT 03/16/18 0000 Signed Impressions: CONCLUSION: 1. No acute abnormality. Objective Remarks GENERAL: Lethargic SKIN: Warm and dry. HEAD: Normocephalic. EYES: No scleral icterus. No injection or drainage. NECK: Supple, trachea midline. No JVD or lymphadenopathy. CARDIOVASCULAR: Regular rate and rhythm without murmurs, gallops, or rubs. RESPIRATORY: Breath sounds equal bilaterally. No accessory muscle use. GASTROINTESTINAL: Abdomen soft, non-tender, nondistended. MUSCULOSKELETAL: No cyanosis, or edema. LUE jerking movement BACK: Nontender without obvious deformity. No CVA tenderness. A/P Problem List: (1) Toxic encephalopathy ICD Code: G92 - Toxic encephalopathy (2) Acute metabolic encephalopathy ICD Code: G93.41 - Metabolic encephalopathy (3) Sepsis ICD Code: A41.9 - Sepsis, unspecified organism Status: Acute (4) Urinary tract infection ICD Code: N39.0 - Urinary tract infection, site not specified Status: Acute (5) Acute renal failure ICD Code: N17.9 - Acute kidney failure, unspecified Status: Acute Assessment and Plan 53 y/o female with a history of anxiety, depression, chronic pain presents to the ED with AMS. Sepsis, source UTI however will rule out encephalitis -Zosyn IV Q6H -Urine culture pending, check lumbar puncture -Check 2D echo to rule out endocarditis Metabolic and toxic encephalopathy, possibly due to pain medication and ARF Rule out encephalitis therefore check lumbar puncture EEG pending to rule out seizure activity Continue treatment for sepsis/UTI pending culture report Check ammonia level, cardiac enzyme Hold all CELL PLASTERER depressant medication Brain MRI/MRA ruled out ischemic CVA Consult neuro if mentation does not improve with kidney function Acute Renal Failure, creatine 8.9 with rhabdomyolysis CPK 2095 -IVF for hydration -Appreciate input from nephrology -avoid nephrotoxins Seizures, chronic -Continue home medications pending EEG -Seizure precautions Anxiety -Only resume home medications when kidney function improves as well as mentation DVT prophylaxis: Heparin Problem Qualifiers (1) Sepsis: Qualified Codes: A41.9 - Sepsis, unspecified organism (2) Urinary tract infection: Qualified Codes: N39.0 - Urinary tract infection, site not specified; R31.9 - Hematuria, unspecified (3) Acute renal failure: Qualified Codes: N17.9 - Acute kidney failure, unspecified Reginaldo Pacheco MD Mar 17, 2018 13:16
[2018-03-17] MEDS ORDERED: SODIUM CHLOR 0.9% 1000 ML INJ 1,000 ML IV PRN (15:09)
[2018-03-17] MEDS ORDERED: SODIUM CHLOR 0.9% 1000 ML INJ 1,000 ML OTHER PRN ×2 (15:09)
--- NOTE | 2018-03-17 15:10 | EKG ---
Date Performed: 03/16/2018 Time Performed: 14:55:09 PTAGE: 53 years EKG: SINUS TACHYCARDIA NONSPECIFIC ST & T-WAVE ABNORMALITY ABNORMAL RHYTHM ECG INTERPRETATION BA SED ON A DEFAULT AGE OF 40 YEARS NO PREVIOUS TRACING DOCTOR: Lilian Wright Interpretating Date/Time 03/17/2018 15:09:27
--- NOTE | 2018-03-17 15:13 | HHI.NPPN ---
Subjective History of Present Illness 53 year old with ARF CKD obtunded Objective Data Data Vital Signs Date Time Temp Pulse Resp B/P (MAP) Pulse Ox O2 Delivery O2 Flow Rate FiO2 03/17/18 14:10 95 21 03/17/18 12:03 98.7 102 18 101/59 (73) 92 03/17/18 12:00 102 03/17/18 08:03 99.1 103 17 93/52 (66) 92 03/17/18 08:00 101 03/17/18 04:02 105 03/17/18 04:00 98.1 108 17 117/56 (76) 94 03/17/18 00:02 108 03/17/18 00:00 98.3 102 17 90/52 (65) 95 03/16/18 20:00 98.0 114 17 120/72 (88) 90 03/16/18 19:46 112 03/16/18 19:23 97.7 103 20 131/84 (100) 95 03/16/18 18:03 106 18 149/84 (105) 95 Room Air 03/16/18 17:30 108 18 110/70 (83) 93 Nasal Cannula 2.00 03/16/18 16:50 100 22 108/64 (79) 95 Room Air 03/16/18 15:13 104 18 107/60 (76) 98 Room Air -: 03/17/18 0525 03/17/18 0525 Microbiology 03/16/18 Aerobic Blood Culture - Preliminary, Resulted NO GROWTH IN 1 DAY 03/16/18 Anaerobic Blood Culture - Preliminary, Resulted NO GROWTH IN 1 DAY 03/16/18 Aerobic Blood Culture - Preliminary, Resulted NO GROWTH IN 1 DAY 03/16/18 Anaerobic Blood Culture - Preliminary, Resulted NO GROWTH IN 1 DAY 03/16/18 Urine Culture - Preliminary, Resulted IMMATURE GROWTH - REINCUBATE Physical Exam General Appearance: Well Developed Neck Neck Exam: Neck Supple Pulmonary Resp Exam: Rhonchi Cardiology CV Exam: Regular, Normal Sinus Rhythm Gastrointestinal/Abdomen GI Exam: Soft, Non-Tender, Bowel Sounds Present Integumentary Skin Exam: Clear Neurologic Neuro Exam: Obtunded Assessment/Plan Problem List: (1) Acute renal failure ICD Codes: N17.9 - Acute kidney failure, unspecified Status: Acute Plan: Patient has previous admission in December and the [facility] and has seen me with acute renal failure dehydration Responded to fluids She is on pain medication and antianxiety medication and the combination may have caused her to become more confused and she developed urinary tract infection Patient is on Zosyn US neg Rhabdo mild to mod need dialysis to see if improvement in Mental status happens left message to Daughter, d/w staff (2) Urinary tract infection ICD Codes: N39.0 - Urinary tract infection, site not specified Status: Acute Plan: Zosyn order (3) Sepsis ICD Codes: A41.9 - Sepsis, unspecified organism Status: Acute Plan: He is urinary tract infection (4) Altered mental status ICD Codes: R41.82 - Altered mental status, unspecified Status: Acute Plan: Underlying sepsis Problem Qualifiers (1) Acute renal failure: Qualified Codes: N17.9 - Acute kidney failure, unspecified (2) Urinary tract infection: Qualified Codes: N39.0 - Urinary tract infection, site not specified; R31.9 - Hematuria, unspecified (3) Sepsis: Qualified Codes: A41.9 - Sepsis, unspecified organism (4) Altered mental status: Qualified Codes: R41.82 - Altered mental status, unspecified Anselmo Grissom MD Mar 17, 2018 15:13
[2018-03-17] MEDS ORDERED: diphenhydrAMINE HCL 25 MG CAP PO PRN (15:15)
[2018-03-17] MEDS ORDERED: MANNITOL 12.5 GM/50 ML VIAL IV PRN (15:15)
[2018-03-17] MEDS ORDERED: HEPARIN SODIUM - IV 10,000 UNITS/10 ML VIAL IV FLUSH PRN (15:15)
[2018-03-17] MEDS ORDERED: ONDANSETRON ODT 4 MG TAB PO PRN (15:15)
[2018-03-17] MEDS ORDERED: GELATIN 12 MM/7 MM FOAM TOP PRN (15:15)
[2018-03-17] MEDS ORDERED: SODIUM CHLORIDE 0.9% FLUSH 10 ML FLUSH IV FLUSH PRN (15:15)
[2018-03-17] MEDS ORDERED: ACETAMINOPHEN 325 MG TAB PO PRN (15:15)
[2018-03-17] MEDS ORDERED: ALBUMIN 25% INJ 100 ML IV PRN (15:15)
[2018-03-17] MEDS ORDERED: EPOETIN ALFA 4,000 UNITS/ML VIAL IV PUSH PRN (15:15)
[2018-03-17] MEDS ORDERED: cloNIDine HCL 0.1 MG TAB PO PRN (15:15)
[2018-03-17] MEDS ORDERED: NITROGLYCERIN 0.4 MG SL 25 TABS/BTL SL PRN (15:15)
--- NOTE | 2018-03-17 16:31 | MG ---
cc: Alexander Bautista MD, PhD DATE OF STUDY: 03/17/2018 TEST NUMBER: [id number] TECHNIQUE: This is a 17-channel EEG. DESCRIPTION: The background rhythm reveals initially a generalized slowing in the theta frequency at 5-6 Hz with an amplitude of about 30-40 microvolts. No lateralizing features are seen and no epileptiform discharges present. Photic resulted in no significant driving response. INTERPRETATION: Abnormal study on the basis of generalized slowing, consistent with a diffuse encephalopathy. Alexander Bautista MD, PhD ELISABET/BINU , 04:12 PM , 04:31 PM
[2018-03-17 17:39] LABS: COMPLEMENT C4 28 MG/DL (10-40)
[2018-03-17] MEDS: ATORVASTATIN 40 MG TAB PO SCH (20:52)
[2018-03-17] MEDS: LORazepam 2 MG/ML VIAL IV PUSH PRN (22:40)
[2018-03-17] MEDS: PIPERACIL-TAZO 2.25 GM PREMIX 50 ML IV SCH (23:42)
[2018-03-18] VITALS (9 sets, daily range): BP systolic 112–153; BP diastolic 65–79; PULSE 99–115; RESP 17–20; TEMP 97.3–98.8; O2SAT 92–98
[2018-03-18] MEDS: SODIUM CHLOR 0.9% 1000 ML INJ 1,000 ML IV SCH ×4 (04:20→18:17)
[2018-03-18] MEDS: LORazepam 2 MG/ML VIAL IV PUSH PRN ×3 (05:34→23:35)
[2018-03-18 06:14] LABS: AUTOMATED NEUTROPHIL # 7.8 TH/MM3 (1.8-7.7); BASOPHIL % 0.3 % (0.0-2.0); EOSINOPHIL # 0.1 TH/MM3 (0-0.4); EOSINOPHIL % 0.8 % (0.0-4.0); HEMATOCRIT 35.5 % (35.0-46.0); HEMOGLOBIN 11.9 GM/DL (11.6-15.3); LYMPH % 10.3 % (9.0-44.0); MEAN CELL VOLUME 92.8 FL (80.0-100.0); MEAN CORPUSCULAR HEMOGLOBIN 31.2 PG (27.0-34.0); MEAN CORPUSCULAR HGB CONC 33.6 % (32.0-36.0); MEAN PLATELET VOLUME 7.4 FL (7.0-11.0); MONO % 8.6 % (0.0-8.0); MONOCYTE # 0.8 TH/MM3 (0-0.9); PLATELET COUNT 257 TH/MM3 (150-450); RED BLOOD COUNT 3.82 MIL/MM3 (4.00-5.30); RED CELL DISTRIBUTION WIDTH 14.4 % (11.6-17.2); WHITE BLOOD COUNT 9.7 TH/MM3 (4.0-11.0)
[2018-03-18 06:56] LABS: ALBUMIN 2.7 GM/DL (3.4-5.0); ALKALINE PHOSPHATASE 139 U/L (45-117); ALT (GPT) 15 U/L (10-53); AST (GOT) 42 U/L (15-37); BICARBONATE 14.4 MEQ/L (21.0-32.0); BLOOD UREA NITROGEN 42 MG/DL (7-18); CALCIUM 8.2 MG/DL (8.5-10.1); CHLORIDE 112 MEQ/L (98-107); CREATININE 9.14 MG/DL (0.50-1.00); GLOMERULAR FILTRATION RATE 4 ML/MIN (>89); GLUCOSE,RANDOM 85 MG/DL (74-106); SODIUM (NA) 142 MEQ/L (136-145); TOTAL BILIRUBIN ADULT 0.3 MG/DL (0.2-1.0); TOTAL PROTEIN 6.4 GM/DL (6.4-8.2)
[2018-03-18 07:36] LABS: ALB/GLOB RATIO (SPE) 1.34 (1.39-2.23)
[2018-03-18] MEDS: OXcarbazepine 150 MG TAB PO SCH ×2 (08:53→21:00)
[2018-03-18] MEDS: VALSARTAN 160 MG TAB PO SCH (08:53)
[2018-03-18] MEDS: METOPROLOL SUCCINATE 25 MG EXTENDED RELEASE TAB PO SCH (08:53)
--- NOTE | 2018-03-18 11:19 | HHI.PR ---
Subjective Remarks Follow-up sepsis/acute metabolic toxic encephalopathy/acute kidney injury March 17, 2018-patient seen and examined, lethargic responded to sternal rub and able to state her name. Currently afebrile March 18, 2018-patient seen and examined, appears much more alert today however still confused Objective Vitals Vital Signs Date Time Temp Pulse Resp B/P (MAP) Pulse Ox O2 Delivery O2 Flow Rate FiO2 03/18/18 08:03 98.7 106 17 112/65 (81) 92 03/18/18 04:00 97.3 100 20 116/79 (91) 95 03/18/18 00:00 98.3 103 20 130/66 (87) 92 03/17/18 21:40 Nasal Cannula 2.00 03/17/18 20:00 99 03/17/18 19:00 97.9 104 20 134/72 (92) 94 03/17/18 16:03 98.5 101 18 111/70 (84) 95 03/17/18 16:00 100 03/17/18 14:10 95 21 03/17/18 12:03 98.7 102 18 101/59 (73) 92 03/17/18 12:00 102 I/O 03/17/18 03/17/18 03/17/18 03/18/18 03/18/18 03/18/18 07:00 15:00 23:00 07:00 15:00 23:00 Intake Total 0 ml 50 ml 2420 ml 1050 ml Output Total 800 ml 1000 ml Balance 0 ml 50 ml 1620 ml 50 ml Intake Oral 0 ml 120 ml 0 ml IV Total 50 ml 2300 ml 1050 ml Output Urine Total 800 ml 1000 ml # Voids 1 # Bowel Movements 0 0 Result Diagram: 03/18/18 0538 03/18/18 0528 Imaging Last Impressions Renal Ultrasound 03/17/18 0000 Signed Impressions: CONCLUSION: Unremarkable sonographic appearance of the kidneys. Head Magnetic Resonance Angiography 03/16/182201 Signed Impressions: CONCLUSION: 1. Probable moderate stenosis distal left middle cerebral artery. Mild stenosi s proximal basilar artery. Brain MRI 03/16/182201 Signed Impressions: CONCLUSION: 1. No acute findings. No recent infarct. Mild white matter ischemic changes in the periventricular region. Head CT 03/16/18 1445 Signed Impressions: CONCLUSION: Unremarkable study except for questionable white matter lucency bi laterally may represent small vessel ischemic changes. Chest X-Ray 03/16/18 1445 Signed Impressions: CONCLUSION: Negative examination. Abdomen/Pelvis CT 03/16/18 0000 Signed Impressions: CONCLUSION: 1. No acute abnormality. Objective Remarks GENERAL: Lethargic SKIN: Warm and dry. HEAD: Normocephalic. EYES: No scleral icterus. No injection or drainage. NECK: Supple, trachea midline. No JVD or lymphadenopathy. CARDIOVASCULAR: Regular rate and rhythm without murmurs, gallops, or rubs. RESPIRATORY: Breath sounds equal bilaterally. No accessory muscle use. GASTROINTESTINAL: Abdomen soft, non-tender, nondistended. MUSCULOSKELETAL: No cyanosis, or edema. LUE jerking movement BACK: Nontender without obvious deformity. No CVA tenderness. A/P Problem List: (1) Toxic encephalopathy ICD Code: G92 - Toxic encephalopathy (2) Acute metabolic encephalopathy ICD Code: G93.41 - Metabolic encephalopathy (3) Sepsis ICD Code: A41.9 - Sepsis, unspecified organism Status: Acute (4) Urinary tract infection ICD Code: N39.0 - Urinary tract infection, site not specified Status: Acute (5) Acute renal failure ICD Code: N17.9 - Acute kidney failure, unspecified Status: Acute Assessment and Plan 53 y/o female with a history of anxiety, depression, chronic pain presents to the ED with AMS. Sepsis, source UTI however will rule out encephalitis -Zosyn IV Q6H -Urine culture pending, lumbar puncture pending -Check 2D echo to rule out endocarditis Metabolic and toxic vs uremic encephalopathy, possibly due to pain medication and ARF Lumbar puncture pending this a.m. March 18, 2018 EEG -----Abnormal study on the basis of generalized slowing, consistent with a diffuse encephalopathy. Continue treatment for sepsis/UTI pending culture report Ammonia level, cardiac enzyme wnl Hold all [employer] depressant medication Brain MRI/MRA ruled out ischemic CVA; check RPR Due to worsening renal function, patient may benefit from hemodialysis for possible treatment of uremic encephalopathy Consult neuro if mentation does not improve with kidney function Acute Renal Failure, creatine 8.9 with rhabdomyolysis on admission CPK 2095 -IVF for hydration -Appreciate input from nephrology, and plan possible hemodialysis -avoid nephrotoxins Seizures, chronic -Continue home medications; EEG-----Abnormal study on the basis of generalized slowing, consistent with a diffuse encephalopathy. -Seizure precautions Anxiety -Only resume home medications when kidney function improves as well as mentation DVT prophylaxis: Heparin Problem Qualifiers (1) Sepsis: Qualified Codes: A41.9 - Sepsis, unspecified organism (2) Urinary tract infection: Qualified Codes: N39.0 - Urinary tract infection, site not specified; R31.9 - Hematuria, unspecified (3) Acute renal failure: Qualified Codes: N17.9 - Acute kidney failure, unspecified Reginaldo Pacheco MD Mar 18, 2018 11:19
[2018-03-18 12:25] LABS: SUPERNATE COLOR TUBE #1 CLEAR (CLEAR); VOLUME TUBE # 1 4.4 ML
[2018-03-18 12:27] LABS: RBC TUBE #1 625 /MM3; WBC TUBE #1 20 /MM3 (0-10)
[2018-03-18 12:29] LABS: CSF NEUTROPHILS 6 %
[2018-03-18 12:31] LABS: CSF LYMPHOCYTES 64 %; CSF MONOCYTES 30 %
[2018-03-18 12:44] LABS: TOTAL PROTEIN,CSF 121.7 MG/DL (15.0-45.0)
[2018-03-18] MEDS ORDERED: SODIUM CHLORIDE 0.9% FLUSH 10 ML FLUSH IV FLUSH PRN (14:15)
[2018-03-18] MEDS ORDERED: HEPARIN SODIUM - IV 2,000 UNITS/2 ML VIAL IV FLUSH PRN (14:15)
--- NOTE | 2018-03-18 14:39 | RADRPT ---
EXAM DATE: 03/18/2018 11:53 AM EDT AGE/SEX: 53 years / Female INDICATIONS: Patient presents with history of renal failure in need of temporary dialysis catheter p lacement for treatment. CLINICAL DATA: This is the patient's initial encounter. Patient reports that signs and symptoms have been present for 2 days and indicates a pain score of Nonresponsive. MEDICAL/SURGICAL HISTORY: Hypertension. Renal failure.Anxiety.Chronic pain syndrome. Unable to obtain. COMPARISON: No prior exams available for comparison. FLUORO TIME (min): 0.3 IMAGE SERIES: 3 ACCESS SITE: Right internal jugular vein DEVICE(S): 14 Lao double lumen Schon catheter 15cm . . PROCEDURE : 1. Ultrasound guided venipuncture. 2. Fluoroscopic guidance. 3. Central line placement. The risks, benefits and alternatives to the procedure were explained and verbal and written consent w as obtained. The site was prepped in sterile fashion. Full sterile technique was used, including ca p, mask, sterile gloves and gown and a large sterile sheet. Hand hygiene and 2% chlorhexidine prep w as utilized per protocol for cutaneous antisepsis with appropriate dry time for site. Sterile gel an d sterile probe cover were utilized for ultrasound guidance. The skin and subcutaneous tissues were infiltrated with local anesthetic solution. A suitable site a shahbaz the vein was selected with ultrasound and fluoroscopic guidance. A small incision was made. Th e vein was accessed under direct ultrasound visualization using the micropuncture technique. The lindsey ropuncture set was exchanged for a 0.035 wire. The tract was dilated. The catheter was advanced int o position under direct fluoroscopic visualization, and was advanced with the tip at the junction of the superior vena cava and rt atrium. The catheter was fixed in place with suture and a sterile dres sing was applied. The patient tolerated the procedure well and there were no complications. CONCLUSION: Uncomplicated ultrasound and fluoroscopic guided central venous dialysis catheter placement as above. Electronically signed by: Joseluis Milan MD 03/18/2018 1:55 PM EDT
--- NOTE | 2018-03-18 14:39 | RADRPT ---
EXAM DATE: 03/18/2018 11:53 AM EDT AGE/SEX: 53 years / Female INDICATIONS: Patient with altered mental status in need of lumbar puncture with opening pressures fo r evaluation. CLINICAL DATA: This is the patient's initial encounter. Patient reports that signs and symptoms have been present for 2 days and indicates a pain score of Nonresponsive. MEDICAL/SURGICAL HISTORY: Hypertension. Renal failure.Anxiety disorder.Chronic pain syndrome. Non-responsive. Unable to obtain. COMPARISON: No prior exams available for comparison. FLUORO TIME (min): 1.0 IMAGE SERIES: 2 ACCESS SITE: L3-4 LUMBAR PUNCTURE TIME: 1037 hours OPENING PRESSURE: 35 cm of water CLOSING PRESSURE: not requested FLUID: Total volume of 20.5 cc of clear fluid was removed. Fluid was sent to lab for ordered studies. . . PROCEDURE: 1. Fluoroscopic guided lumbar puncture. 2. Recording of opening pressure. The risks, benefits and alternatives to the procedure were explained and verbal and written consent w as obtained. The site was prepped in sterile fashion. Full sterile technique was used, including ca p, mask, sterile gloves and gown and a large sterile sheet. Hand hygiene and 2% chlorhexidine and/or betadine/alcohol prep was utilized per protocol for cutaneous antisepsis. The skin and subcutaneous tissues were infiltrated with local anesthetic solution. With fluoroscopic guidance the lumbar thecal sac was punctured at the above level described above and the opening pressure was recorded. The above described fluid was removed without difficulty. The patient tolerated the procedure well and there were no complications. CONCLUSION: Uncomplicated fluoroscopically guided lumbar puncture with pressures as above. Electronically signed by: Joseluis Milan MD 03/18/2018 1:54 PM EDT
[2018-03-18] MEDS: PIPERACIL-TAZO 2.25 GM PREMIX 50 ML IV SCH (15:07)
--- NOTE | 2018-03-18 15:49 | HHI.NPPN ---
Subjective History of Present Illness 53 year old with ARF CKD obtunded Objective Data Data 03/18/18 03/19/18 19:00 07:00 Output Total 2000 ml Balance -2000 ml Hemodialysis 2000 ml Vital Signs Date Time Temp Pulse Resp B/P (MAP) Pulse Ox O2 Delivery O2 Flow Rate FiO2 03/18/18 13:45 94 Nasal Cannula 2.00 03/18/18 08:03 98.7 106 17 112/65 (81) 92 03/18/18 04:00 97.3 100 20 116/79 (91) 95 03/18/18 00:00 98.3 103 20 130/66 (87) 92 03/17/18 21:40 Nasal Cannula 2.00 03/17/18 20:00 99 03/17/18 19:00 97.9 104 20 134/72 (92) 94 03/17/18 16:03 98.5 101 18 111/70 (84) 95 03/17/18 16:00 100 -: 03/18/18 0538 03/18/18 0528 Microbiology 03/18/18 Fungal Smear, Received Pending 03/18/18 Fungal Culture, Received Pending 03/18/18 Acid Fast Stain, Received Pending 03/18/18 Mycobacterial Culture, Received Pending 03/18/18 Gram Stain - Final, Resulted 03/18/18 CSF Culture, Resulted Pending Physical Exam General Appearance: Well Developed Neck Neck Exam: Neck Supple Pulmonary Resp Exam: Rhonchi Cardiology CV Exam: Regular, Normal Sinus Rhythm Gastrointestinal/Abdomen GI Exam: Soft, Non-Tender, Bowel Sounds Present Integumentary Skin Exam: Clear Neurologic Neuro Exam: Obtunded Assessment/Plan Problem List: (1) Acute renal failure ICD Codes: N17.9 - Acute kidney failure, unspecified Status: Acute Plan: Patient has previous admission in December and the [facility] [place] and has seen me with acute renal failure dehydration use of NSAID'S Responded to fluids She is on pain medication and antianxiety medication and the combination may have caused her to become more confused and she developed urinary tract infection Patient is on Zosyn US neg Rhabdo mild to mod dialysis done 2 L UF she is confused (2) Urinary tract infection ICD Codes: N39.0 - Urinary tract infection, site not specified Status: Acute Plan: Zosyn order (3) Sepsis ICD Codes: A41.9 - Sepsis, unspecified organism Status: Acute Plan: He is urinary tract infection (4) Altered mental status ICD Codes: R41.82 - Altered mental status, unspecified Status: Acute Plan: Underlying sepsis Problem Qualifiers (1) Acute renal failure: Qualified Codes: N17.9 - Acute kidney failure, unspecified (2) Urinary tract infection: Qualified Codes: N39.0 - Urinary tract infection, site not specified; R31.9 - Hematuria, unspecified (3) Sepsis: Qualified Codes: A41.9 - Sepsis, unspecified organism (4) Altered mental status: Qualified Codes: R41.82 - Altered mental status, unspecified Anselmo Grissom MD Mar 18, 2018 15:49
[2018-03-18] MEDS: ATORVASTATIN 40 MG TAB PO SCH (21:00)
[2018-03-19] VITALS (10 sets, daily range): BP systolic 135–166; BP diastolic 80–109; PULSE 89–122; RESP 18–20; TEMP 97.9–98.7; O2SAT 91–97
[2018-03-19] MEDS: PIPERACIL-TAZO 2.25 GM PREMIX 50 ML IV SCH ×2 (00:25→12:51)
[2018-03-19] MEDS: SODIUM CHLOR 0.9% 1000 ML INJ 1,000 ML IV SCH ×3 (00:26→20:20)
[2018-03-19] MEDS: metroNIDAZOLE 500 MG INJ 100 ML IV SCH ×3 (02:23→19:49)
[2018-03-19 08:06] LABS: AUTOMATED NEUTROPHIL # 4.8 TH/MM3 (1.8-7.7); BASOPHIL % 0.2 % (0.0-2.0); EOSINOPHIL # 0.1 TH/MM3 (0-0.4); HEMOGLOBIN 12.5 GM/DL (11.6-15.3); LYMPH % 16.7 % (9.0-44.0); LYMPHOCYTE # 1.1 TH/MM3 (1.0-4.8); MEAN CELL VOLUME 91.6 FL (80.0-100.0); MEAN CORPUSCULAR HEMOGLOBIN 31.8 PG (27.0-34.0); MEAN CORPUSCULAR HGB CONC 34.7 % (32.0-36.0); MEAN PLATELET VOLUME 7.4 FL (7.0-11.0); MONO % 10.3 % (0.0-8.0); MONOCYTE # 0.7 TH/MM3 (0-0.9); NEUT % 71.8 % (16.0-70.0); PLATELET COUNT 258 TH/MM3 (150-450); RED BLOOD COUNT 3.93 MIL/MM3 (4.00-5.30); RED CELL DISTRIBUTION WIDTH 14.4 % (11.6-17.2); WHITE BLOOD COUNT 6.7 TH/MM3 (4.0-11.0)
[2018-03-19 08:31] LABS: ALBUMIN 2.7 GM/DL (3.4-5.0); ALKALINE PHOSPHATASE 108 U/L (45-117); ALT (GPT) 15 U/L (10-53); AST (GOT) 39 U/L (15-37); BICARBONATE 18.9 MEQ/L (21.0-32.0); BLOOD UREA NITROGEN 26 MG/DL (7-18); CALCIUM 8.5 MG/DL (8.5-10.1); CHLORIDE 113 MEQ/L (98-107); CREATININE 5.99 MG/DL (0.50-1.00); GLOMERULAR FILTRATION RATE 7 ML/MIN (>89); GLUCOSE,RANDOM 88 MG/DL (74-106); SODIUM (NA) 146 MEQ/L (136-145); TOTAL BILIRUBIN ADULT 0.4 MG/DL (0.2-1.0); TOTAL PROTEIN 6.6 GM/DL (6.4-8.2)
--- NOTE | 2018-03-19 10:05 | HHI.NPPN ---
Subjective History of Present Illness 53 year old with ARF CKD confused and restrained Objective Data Data Vital Signs Date Time Temp Pulse Resp B/P (MAP) Pulse Ox O2 Delivery O2 Flow Rate FiO2 03/19/18 04:00 97.9 109 20 162/109 (126) 96 03/19/18 04:00 89 03/19/18 00:00 98.7 122 20 166/96 (119) 97 03/19/18 00:00 101 03/18/18 20:00 98.8 102 20 128/78 (95) 97 03/18/18 18:19 97.8 115 17 129/66 (87) 95 03/18/18 17:53 98 Nasal Cannula 2.00 03/18/18 16:03 98.1 99 18 153/79 (103) 98 03/18/18 13:45 94 Nasal Cannula 2.00 -: 03/19/18 0725 03/19/18 0725 Microbiology 03/18/18 Fungal Smear, Received Pending 03/18/18 Fungal Culture, Received Pending 03/18/18 Acid Fast Stain, Received Pending 03/18/18 Mycobacterial Culture, Received Pending 03/18/18 Gram Stain - Final, Resulted 03/18/18 CSF Culture - Preliminary, Resulted NO GROWTH IN 24 HOURS. Physical Exam General Appearance: Well Developed Neck Neck Exam: Neck Supple Pulmonary Resp Exam: Rhonchi Cardiology CV Exam: Regular, Normal Sinus Rhythm Gastrointestinal/Abdomen GI Exam: Soft, Non-Tender, Bowel Sounds Present Integumentary Skin Exam: Clear Neurologic Neuro Exam: Alert, Combative Assessment/Plan Problem List: (1) Acute renal failure ICD Codes: N17.9 - Acute kidney failure, unspecified Status: Acute Plan: Patient has previous admission in December and the [facility] and has seen me with acute renal failure dehydration use of NSAID'S Responded to fluids at that time She is on pain medication and antianxiety medication and the combination may have caused her to become more confused and she developed urinary tract infection Seen during dialysis 1.5 L of UF she is confused (2) Urinary tract infection ICD Codes: N39.0 - Urinary tract infection, site not specified Status: Acute Plan: Zosyn order (3) Sepsis ICD Codes: A41.9 - Sepsis, unspecified organism Status: Acute Plan: He is urinary tract infection (4) Altered mental status ICD Codes: R41.82 - Altered mental status, unspecified Status: Acute Plan: Underlying sepsis Problem Qualifiers (1) Acute renal failure: Qualified Codes: N17.9 - Acute kidney failure, unspecified (2) Urinary tract infection: Qualified Codes: N39.0 - Urinary tract infection, site not specified; R31.9 - Hematuria, unspecified (3) Sepsis: Qualified Codes: A41.9 - Sepsis, unspecified organism (4) Altered mental status: Qualified Codes: R41.82 - Altered mental status, unspecified Anselmo Grissom MD Mar 19, 2018 10:05
[2018-03-19] MEDS: GENTAMICIN SULFATE 20 MG/2 ML VIAL OTHER PRN (10:31)
[2018-03-19] MEDS: HEPARIN SODIUM - IV 10,000 UNITS/10 ML VIAL PRN (10:31)
[2018-03-19] MEDS: OXcarbazepine 150 MG TAB PO SCH ×2 (12:36→21:13)
[2018-03-19] MEDS: METOPROLOL SUCCINATE 25 MG EXTENDED RELEASE TAB PO SCH (12:36)
[2018-03-19] MEDS: VALSARTAN 160 MG TAB PO SCH (12:36)
--- NOTE | 2018-03-19 13:07 | HHI.PR ---
Subjective Remarks Follow-up sepsis/acute metabolic toxic encephalopathy/acute kidney injury March 17, 2018-patient seen and examined, lethargic responded to sternal rub and able to state her name. Currently afebrile March 18, 2018-patient seen and examined, appears much more alert today however still confused March 19, 2018-patient seen and examined, alert and oriented to self and following commands able to introduce her boyfriend and daughter present in the room. C. difficile PCR positive. Patient had hemodialysis today Objective Vitals Vital Signs Date Time Temp Pulse Resp B/P (MAP) Pulse Ox O2 Delivery O2 Flow Rate FiO2 03/19/18 10:04 96 Nasal Cannula 2.00 03/19/18 08:03 98.1 103 18 143/86 (105) 91 03/19/18 04:00 97.9 109 20 162/109 (126) 96 03/19/18 04:00 89 03/19/18 00:00 98.7 122 20 166/96 (119) 97 03/19/18 00:00 101 03/18/18 20:00 98.8 102 20 128/78 (95) 97 03/18/18 18:19 97.8 115 17 129/66 (87) 95 03/18/18 17:53 98 Nasal Cannula 2.00 03/18/18 16:03 98.1 99 18 153/79 (103) 98 03/18/18 13:45 94 Nasal Cannula 2.00 I/O 03/18/18 03/18/18 03/18/18 03/19/18 03/19/18 03/19/18 07:00 15:00 23:00 07:00 15:00 23:00 Intake Total 1050 ml 0 ml Output Total 1000 ml 2000 ml 900 ml 200 ml Balance 50 ml -2000 ml -900 ml -200 ml Intake Oral 0 ml 0 ml IV Total 1050 ml Output Urine Total 1000 ml 900 ml 200 ml Hemodialysis 2000 ml # Voids 5 1 # Bowel Movements 1 3 Result Diagram: 03/19/1825 03/19/18724 Objective Remarks GENERAL: NAD with [address] SKIN: Warm and dry. HEAD: Normocephalic. EYES: No scleral icterus. No injection or drainage. NECK: Supple, trachea midline. No JVD or lymphadenopathy. CARDIOVASCULAR: Regular rate and rhythm without murmurs, gallops, or rubs. RESPIRATORY: Breath sounds equal bilaterally. No accessory muscle use. GASTROINTESTINAL: Abdomen soft, non-tender, nondistended. MUSCULOSKELETAL: No cyanosis, or edema. BACK: Nontender without obvious deformity. No CVA tenderness. A/P Problem List: (1) Toxic encephalopathy ICD Code: G92 - Toxic encephalopathy (2) Acute metabolic encephalopathy ICD Code: G93.41 - Metabolic encephalopathy (3) Sepsis ICD Code: A41.9 - Sepsis, unspecified organism Status: Acute (4) Urinary tract infection ICD Code: N39.0 - Urinary tract infection, site not specified Status: Acute (5) Acute renal failure ICD Code: N17.9 - Acute kidney failure, unspecified Status: Acute Assessment and Plan 53 y/o female with a history of anxiety, depression, chronic pain presents to the ED with AMS. Sepsis, source UTI however will rule out encephalitis -Zosyn IV Q6H -Urine culture pending, lumbar puncture pending -2D echo to rule out endocarditis Metabolic and toxic vs uremic encephalopathy,-improving possibly due to pain medication and ARF Lumbar puncture March 18, 2018 EEG -----Abnormal study on the basis of generalized slowing, consistent with a diffuse encephalopathy. Continue treatment for sepsis/UTI pending culture report Ammonia level, cardiac enzyme wnl Hold all [employer] depressant medication Brain MRI/MRA ruled out ischemic CVA; check RPR Continue with hemodialysis per nephrology Consult neuro if mentation does not improve with kidney function Acute Renal Failure, creatine 8.9 with rhabdomyolysis on admission CPK 2095 -IVF for hydration -Appreciate input from nephrology, and plan possible hemodialysis -avoid nephrotoxins Seizures, chronic -Continue home medications; EEG-----Abnormal study on the basis of generalized slowing, consistent with a diffuse encephalopathy. -Seizure precautions C. difficile diarrhea Currently on Flagyl IV 500 mg every 8H, and likely will switch to p.o. vancomycin when patient able to tolerate p.o. Anxiety -Only resume home medications when kidney function improves as well as mentation DVT prophylaxis: Heparin Problem Qualifiers (1) Sepsis: Qualified Codes: A41.9 - Sepsis, unspecified organism (2) Urinary tract infection: Qualified Codes: N39.0 - Urinary tract infection, site not specified; R31.9 - Hematuria, unspecified (3) Acute renal failure: Qualified Codes: N17.9 - Acute kidney failure, unspecified Reginaldo Pacheco MD Mar 19, 2018 13:07
[2018-03-19] MEDS: LORazepam 2 MG/ML VIAL IV PUSH PRN (15:06)
[2018-03-19] MEDS: ATORVASTATIN 40 MG TAB PO SCH (21:13)
[2018-03-20] VITALS (13 sets, daily range): BP systolic 128–154; BP diastolic 84–97; PULSE 73–99; RESP 16–19; TEMP 97.8–98.2; O2SAT 93–98
[2018-03-20] MEDS: PIPERACIL-TAZO 2.25 GM PREMIX 50 ML IV SCH (00:54)
[2018-03-20] MEDS: metroNIDAZOLE 500 MG INJ 100 ML IV SCH (01:43)
[2018-03-20 06:13] LABS: AUTOMATED NEUTROPHIL # 5.2 TH/MM3 (1.8-7.7); BASOPHIL % 0.2 % (0.0-2.0); EOSINOPHIL # 0.1 TH/MM3 (0-0.4); EOSINOPHIL % 1.2 % (0.0-4.0); HEMATOCRIT 34.5 % (35.0-46.0); HEMOGLOBIN 12.2 GM/DL (11.6-15.3); LYMPH % 16.9 % (9.0-44.0); LYMPHOCYTE # 1.2 TH/MM3 (1.0-4.8); MEAN CELL VOLUME 88.5 FL (80.0-100.0); MEAN CORPUSCULAR HEMOGLOBIN 31.3 PG (27.0-34.0); MEAN CORPUSCULAR HGB CONC 35.4 % (32.0-36.0); MONO % 9.4 % (0.0-8.0); MONOCYTE # 0.7 TH/MM3 (0-0.9); NEUT % 72.3 % (16.0-70.0); PLATELET COUNT 274 TH/MM3 (150-450); RED CELL DISTRIBUTION WIDTH 14.4 % (11.6-17.2); WHITE BLOOD COUNT 7.2 TH/MM3 (4.0-11.0)
[2018-03-20 06:40] LABS: ALBUMIN 2.7 GM/DL (3.4-5.0); ALKALINE PHOSPHATASE 93 U/L (45-117); ALT (GPT) 12 U/L (10-53); AST (GOT) 28 U/L (15-37); BICARBONATE 24.5 MEQ/L (21.0-32.0); BLOOD UREA NITROGEN 16 MG/DL (7-18); CALCIUM 8.1 MG/DL (8.5-10.1); CHLORIDE 104 MEQ/L (98-107); CREATININE 3.49 MG/DL (0.50-1.00); GLOMERULAR FILTRATION RATE 14 ML/MIN (>89); GLUCOSE,RANDOM 94 MG/DL (74-106); SODIUM (NA) 143 MEQ/L (136-145); TOTAL BILIRUBIN ADULT 0.6 MG/DL (0.2-1.0); TOTAL PROTEIN 6.3 GM/DL (6.4-8.2)
[2018-03-20] MEDS ORDERED: POTASSIUM CHLORIDE 10 MEQ CONTROLLED RELEASE TAB PO ONE (07:00)
[2018-03-20] MEDS: VALSARTAN 160 MG TAB PO SCH (08:28)
[2018-03-20] MEDS: METOPROLOL SUCCINATE 25 MG EXTENDED RELEASE TAB PO SCH (08:28)
[2018-03-20] MEDS: OXcarbazepine 150 MG TAB PO SCH ×2 (08:28→22:20)
[2018-03-20] MEDS: SODIUM CHLOR 0.9% 1000 ML INJ 1,000 ML IV SCH (08:35)
[2018-03-20] MEDS ORDERED: POTASSIUM CHLORIDE 20 MEQ CONTROLLED RELEASE TAB PO ONE (11:30)
--- NOTE | 2018-03-20 11:35 | HHI.PR ---
Subjective Remarks Follow-up sepsis/acute metabolic toxic encephalopathy/acute kidney injury March 17, 2018-patient seen and examined, lethargic responded to sternal rub and able to state her name. Currently afebrile March 18, 2018-patient seen and examined, appears much more alert today however still confused March 19, 2018-patient seen and examined, alert and oriented to self and following commands able to introduce her boyfriend and daughter present in the room. C. difficile PCR positive. Patient had hemodialysis today March 20, 2018-patient seen and examined, patient currently on four-point restraint however alert and oriented 2, boyfriend by the bedside. Objective Vitals Vital Signs Date Time Temp Pulse Resp B/P (MAP) Pulse Ox O2 Delivery O2 Flow Rate FiO2 03/20/18 08:43 93 Nasal Cannula 2.00 03/20/18 08:39 Nasal Cannula 2.00 03/20/18 08:02 98.2 81 16 148/97 (114) 95 03/20/18 04:00 98.1 88 17 129/88 (102) 96 03/20/18 03:58 Room Air 03/20/18 03:58 85 03/20/18 00:37 93 03/20/18 00:00 Room Air 03/20/18 00:00 98.1 99 19 128/84 (99) 98 03/19/18 20:18 100 03/19/18 20:00 98.6 98 19 135/94 (108) 97 03/19/18 20:00 Room Air 03/19/18 17:49 92 Nasal Cannula 2.00 03/19/18 16:03 98.2 90 18 136/84 (101) 92 03/19/18 12:32 98.0 92 18 138/80 (99) 92 03/19/18 12:00 111 I/O 03/19/18 03/19/18 03/19/18 03/20/18 03/20/18 03/20/18 07:00 15:00 23:00 07:00 15:00 23:00 Intake Total 50 ml 270 ml 250 ml 1000 ml Output Total 451 ml 100 ml Balance -401 ml 270 ml 250 ml 900 ml Intake Oral 270 ml 100 ml IV Total 50 ml 150 ml 1000 ml Output Urine Total 450 ml 100 ml Stool Total 1 ml # Voids 5 1 6 4 1 # Bowel Movements 3 2 Result Diagram: 03/20/1852903/20/18529 Objective Remarks GENERAL: NAD with [address] SKIN: Warm and dry. HEAD: Normocephalic. EYES: No scleral icterus. No injection or drainage. NECK: Supple, trachea midline. No JVD or lymphadenopathy. CARDIOVASCULAR: Regular rate and rhythm without murmurs, gallops, or rubs. RESPIRATORY: Breath sounds equal bilaterally. No accessory muscle use. GASTROINTESTINAL: Abdomen soft, non-tender, nondistended. MUSCULOSKELETAL: No cyanosis, or edema. BACK: Nontender without obvious deformity. No CVA tenderness. A/P Problem List: (1) Uremic encephalopathy ICD Code: G93.41 - Metabolic encephalopathy; N19 - Unspecified kidney failure (2) Toxic encephalopathy ICD Code: G92 - Toxic encephalopathy (3) Acute metabolic encephalopathy ICD Code: G93.41 - Metabolic encephalopathy (4) Sepsis ICD Code: A41.9 - Sepsis, unspecified organism Status: Acute (5) Urinary tract infection ICD Code: N39.0 - Urinary tract infection, site not specified Status: Acute (6) Acute renal failure ICD Code: N17.9 - Acute kidney failure, unspecified Status: Acute Assessment and Plan 53 y/o female with a history of anxiety, depression, chronic pain presents to the ED with AMS. Sepsis, source UTI -resolved -Discontinue Zosyn IV Q6H -Urine and lumbar puncture NTD -2D echo to rule out endocarditis Metabolic and toxic vs uremic encephalopathy,-improving possibly due to pain medication and ARF Lumbar puncture March 18, 2018 EEG -----Abnormal study on the basis of generalized slowing, consistent with a diffuse encephalopathy. 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 -Seizure precautions C. difficile diarrhea Currently on Flagyl IV 500 mg every 8H, and likely will switch to p.o. vancomycin today March 20, 2018 Anxiety -Only resume home medications when kidney function improves as well as mentation DVT prophylaxis: Heparin Problem Qualifiers (1) Sepsis: Qualified Codes: A41.9 - Sepsis, unspecified organism (2) Urinary tract infection: Qualified Codes: N39.0 - Urinary tract infection, site not specified; R31.9 - Hematuria, unspecified (3) Acute renal failure: Qualified Codes: N17.9 - Acute kidney failure, unspecified Reginaldo Pacheco MD Mar 20, 2018 11:35
[2018-03-20] MEDS: VANCOMYCIN 500 MG VIAL (FOR ORAL USE ONLY) PO SCH ×3 (12:11→22:21)
--- NOTE | 2018-03-20 15:11 | HHI.NPPN ---
Subjective History of Present Illness 53 year old with ARF CKD confused Additional Remarks more alert today Objective Data Data 03/20/18 03/21/18 19:00 07:00 Intake Total 1000 ml Output Total 100 ml Balance 900 ml IV Total 1000 ml Output Urine Total 100 ml # Voids 1 Vital Signs Date Time Temp Pulse Resp B/P (MAP) Pulse Ox O2 Delivery O2 Flow Rate FiO2 03/20/18 12:02 97.9 80 16 154/91 (112) 97 03/20/18 08:43 93 Nasal Cannula 2.00 03/20/18 08:39 Nasal Cannula 2.00 03/20/18 08:02 98.2 81 16 148/97 (114) 95 03/20/18 04:00 98.1 88 17 129/88 (102) 96 03/20/18 03:58 Room Air 03/20/18 03:58 85 03/20/18 00:37 93 03/20/18 00:00 Room Air 03/20/18 00:00 98.1 99 19 128/84 (99) 98 03/19/18 20:18 100 03/19/18 20:00 98.6 98 19 135/94 (108) 97 03/19/18 20:00 Room Air 03/19/18 17:49 92 Nasal Cannula 2.00 03/19/18 16:03 98.2 90 18 136/84 (101) 92 -: 03/20/18 0530 03/20/18 0530 Physical Exam General Appearance: Well Developed Neck Neck Exam: Neck Supple Pulmonary Resp Exam: Rhonchi Cardiology CV Exam: Regular, Normal Sinus Rhythm Gastrointestinal/Abdomen GI Exam: Soft, Non-Tender, Bowel Sounds Present Integumentary Skin Exam: Clear Neurologic Neuro Exam: Alert Assessment/Plan Problem List: (1) Acute renal failure ICD Codes: N17.9 - Acute kidney failure, unspecified Status: Acute Plan: Patient has previous admission in December and the [facility] and has seen me with acute renal failure dehydration use of NSAID'S Responded to fluids at that time She is on pain medication and antianxiety medication and the combination may have caused her to become more confused and she developed urinary tract infection Creatinine declined potassium is very low this was replaced 30 MEQ C. difficile is positive (2) Urinary tract infection ICD Codes: N39.0 - Urinary tract infection, site not specified Status: Acute Plan: Zosyn stop (3) Sepsis ICD Codes: A41.9 - Sepsis, unspecified organism Status: Acute Plan: HX of urinary tract infection (4) Altered mental status ICD Codes: R41.82 - Altered mental status, unspecified Status: Acute Plan: Underlying sepsis improved (5) Clostridium difficile colitis ICD Codes: A04.72 - Enterocolitis due to Clostridium difficile, not specified as recurrent Plan: Oral vancomycin Problem Qualifiers (1) Acute renal failure: Qualified Codes: N17.9 - Acute kidney failure, unspecified (2) Urinary tract infection: Qualified Codes: N39.0 - Urinary tract infection, site not specified; R31.9 - Hematuria, unspecified (3) Sepsis: Qualified Codes: A41.9 - Sepsis, unspecified organism (4) Altered mental status: Qualified Codes: R41.82 - Altered mental status, unspecified Anselmo Grissom MD Mar 20, 2018 15:11
[2018-03-20] MEDS: ATORVASTATIN 40 MG TAB PO SCH (22:19)
[2018-03-21] VITALS (9 sets, daily range): BP systolic 137–171; BP diastolic 89–97; PULSE 60–83; RESP 17–18; TEMP 95.3–98.2; O2SAT 94–97
[2018-03-21 06:13] LABS: CALCIUM 8.2 MG/DL (8.5-10.1); CREATININE 2.92 MG/DL (0.50-1.00)
[2018-03-21] MEDS: METOPROLOL SUCCINATE 25 MG EXTENDED RELEASE TAB PO SCH (08:54)
[2018-03-21] MEDS: VALSARTAN 160 MG TAB PO SCH (08:54)
[2018-03-21] MEDS: VANCOMYCIN 500 MG VIAL (FOR ORAL USE ONLY) PO SCH ×4 (08:54→21:07)
[2018-03-21] MEDS: OXcarbazepine 150 MG TAB PO SCH ×2 (08:54→21:06)
[2018-03-21] MEDS: ACETAMINOPHEN/HYDROcodone 325 MG/5 MG TAB PO PRN ×3 (10:28→23:11)
--- NOTE | 2018-03-21 11:34 | HHI.PR ---
Subjective Remarks Follow-up sepsis/acute metabolic toxic encephalopathy/acute kidney injury March 17, 2018-patient seen and examined, lethargic responded to sternal rub and able to state her name. Currently afebrile March 18, 2018-patient seen and examined, appears much more alert today however still confused March 19, 2018-patient seen and examined, alert and oriented to self and following commands able to introduce her boyfriend and daughter present in the room. C. difficile PCR positive. Patient had hemodialysis today March 20, 2018-patient seen and examined, patient currently on four-point restraint however alert and oriented 2, boyfriend by the bedside. March 21, 2018: Patient is very pleasant family at bedside. She is more awake and alert. She is off restraints. She is alert and oriented by 4 at this time. Still with some diarrhea however is getting better she had just 1 bowel movement today loose. No fever or chills. With some abdominal cramps however pain is controlled. Able to eat some food and keep down. No nausea or vomiting. Did not have dialysis. Nephrology also following. Objective Vitals Vital Signs Date Time Temp Pulse Resp B/P (MAP) Pulse Ox O2 Delivery O2 Flow Rate FiO2 03/21/18 08:00 98.0 62 18 171/97 (121) 97 03/21/18 04:00 98.1 63 18 151/92 (111) 97 03/21/18 00:00 95.3 83 17 137/92 (107) 95 03/20/18 20:50 96 Nasal Cannula 2.00 03/20/18 20:00 97.8 91 19 139/85 (103) 97 03/20/18 16:03 76 03/20/18 16:02 98.0 80 16 146/90 (108) 96 03/20/18 12:02 97.9 80 16 154/91 (112) 97 03/20/18 11:39 73 I/O 03/20/18 03/20/18 03/20/18 03/21/18 03/21/18 03/21/18 07:00 15:00 23:00 07:00 15:00 23:00 Intake Total 250 ml 1000 ml 480 ml Output Total 100 ml 350 ml Balance 250 ml 900 ml 130 ml Intake Oral 100 ml 480 ml IV Total 150 ml 1000 ml Output Urine Total 100 ml 350 ml # Voids 4 1 3 # Bowel Movements 1 Result Diagram: 03/20/18 0530 03/21/18 0450 Imaging Last Impressions Lumbar Puncture Fluoroscopy 03/18/18 Signed Impressions: CONCLUSION: Uncomplicated fluoroscopically guided lumbar puncture with pressures as above. Catheter Placement X-Ray 03/18/18 Signed Impressions: CONCLUSION: Uncomplicated ultrasound and fluoroscopic guided central venous dialysis cathet er placement as above. Renal Ultrasound 03/17/18 Signed Impressions: CONCLUSION: Unremarkable sonographic appearance of the kidneys. Head Magnetic Resonance Angiography 03/16/182201 Signed Impressions: CONCLUSION: 1. Probable moderate stenosis distal left middle cerebral artery. Mild stenosi s proximal basilar artery. Brain MRI 03/16/182201 Signed Impressions: CONCLUSION: 1. No acute findings. No recent infarct. Mild white matter ischemic changes in the periventricular region. Head CT 03/16/18 144 Signed Impressions: CONCLUSION: Unremarkable study except for questionable white matter lucency bi laterally may represent small vessel ischemic changes. Chest X-Ray 03/16/18 144 Signed Impressions: CONCLUSION: Negative examination. Abdomen/Pelvis CT 03/16/18 Signed Impressions: CONCLUSION: 1. No acute abnormality. Objective Remarks GENERAL: 53 yo F, more awake and alert, off restraints, doesn't appear in distress CARDIOVASCULAR: Regular rate and rhythm without murmurs, gallops, or rubs. RESPIRATORY: Breath sounds equal bilaterally. No accessory muscle use. GASTROINTESTINAL: Abdomen soft, non-tender, nondistended. MUSCULOSKELETAL: No cyanosis, or edema. BACK: Nontender without obvious deformity. No CVA tenderness. NEURO: More awake and alert. Follows commands. Normal speech. No focal deficit. A/P Problem List: (1) Uremic encephalopathy ICD Code: G93.41 - Metabolic encephalopathy; N19 - Unspecified kidney failure (2) Toxic encephalopathy ICD Code: G92 - Toxic encephalopathy (3) Acute metabolic encephalopathy ICD Code: G93.41 - Metabolic encephalopathy (4) Sepsis ICD Code: A41.9 - Sepsis, unspecified organism Status: Acute (5) Urinary tract infection ICD Code: N39.0 - Urinary tract infection, site not specified Status: Acute (6) Acute renal failure ICD Code: N17.9 - Acute kidney failure, unspecified Status: Acute Assessment and Plan 53 y/o female with a history of anxiety, depression, chronic pain presents to the ED with AMS. Sepsis, source UTI -resolved Discontinue Zosyn IV Q6H Urine and lumbar puncture NTD 2D echo to rule out endocarditis Metabolic and toxic vs uremic encephalopathy. Resolved. possibly due to pain medication and ARF Lumbar puncture March 18, 2018 EEG : Abnormal study on the basis of generalized slowing, consistent with a diffuse encephalopathy. 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 Seizure precautions C. difficile diarrhea Currently on Flagyl IV 500 mg every 8H, and likely will switch to p.o. vancomycin today March 20, 2018 Anxiety Only resume home medications when kidney function improves as well as mentation DVT prophylaxis: Heparin Discussed with the patient, nurse, family at bedside Discharge plan. Patient is improving. Discharge when cleared by consultants. Still with diarrhea Problem Qualifiers (1) Sepsis: Qualified Codes: A41.9 - Sepsis, unspecified organism (2) Urinary tract infection: Qualified Codes: N39.0 - Urinary tract infection, site not specified; R31.9 - Hematuria, unspecified (3) Acute renal failure: Qualified Codes: N17.9 - Acute kidney failure, unspecified Irene Nuñez MD Mar 21, 2018 11:34
[2018-03-21] MEDS: SODIUM CHLOR 0.9% 1000 ML INJ 1,000 ML IV SCH ×2 (11:51→12:06)
--- NOTE | 2018-03-21 14:42 | HHI.NPPN ---
Subjective History of Present Illness 53 year old with ARF CKD confused Additional Remarks more alert today Objective Data Data Vital Signs Date Time Temp Pulse Resp B/P (MAP) Pulse Ox O2 Delivery O2 Flow Rate FiO2 03/21/18 14:35 96 Nasal Cannula 2.00 03/21/18 12:00 60 03/21/18 08:15 Room Air 03/21/18 08:00 98.0 62 18 171/97 (121) 97 03/21/18 08:00 60 03/21/18 04:00 98.1 63 18 151/92 (111) 97 03/21/18 00:00 95.3 83 17 137/92 (107) 95 03/20/18 20:50 96 Nasal Cannula 2.00 03/20/18 20:00 97.8 91 19 139/85 (103) 97 03/20/18 16:03 76 03/20/18 16:02 98.0 80 16 146/90 (108) 96 -: 03/20/18 0530 03/21/18 0450 Physical Exam General Appearance: Well Developed Neck Neck Exam: Neck Supple Pulmonary Resp Exam: Rhonchi Cardiology CV Exam: Regular, Normal Sinus Rhythm Gastrointestinal/Abdomen GI Exam: Soft, Non-Tender, Bowel Sounds Present Integumentary Skin Exam: Clear Neurologic Neuro Exam: Alert Assessment/Plan Problem List: (1) Acute renal failure ICD Codes: N17.9 - Acute kidney failure, unspecified Status: Acute Plan: Patient has previous admission in December and the [facility] and has seen me with acute renal failure dehydration use of NSAID'S Responded to fluids at that time She is on pain medication and antianxiety medication and the combination may have caused her to become more confused and she developed urinary tract infection Creatinine declined potassium is very low this was replaced 30 MEQ dialysis may not be needed Cr improving C. difficile is positive (2) Urinary tract infection ICD Codes: N39.0 - Urinary tract infection, site not specified Status: Acute Plan: Zosyn stop (3) Sepsis ICD Codes: A41.9 - Sepsis, unspecified organism Status: Acute Plan: HX of urinary tract infection (4) Altered mental status ICD Codes: R41.82 - Altered mental status, unspecified Status: Acute Plan: Underlying sepsis improved (5) Clostridium difficile colitis ICD Codes: A04.72 - Enterocolitis due to Clostridium difficile, not specified as recurrent Plan: Oral vancomycin Problem Qualifiers (1) Acute renal failure: Qualified Codes: N17.9 - Acute kidney failure, unspecified (2) Urinary tract infection: Qualified Codes: N39.0 - Urinary tract infection, site not specified; R31.9 - Hematuria, unspecified (3) Sepsis: Qualified Codes: A41.9 - Sepsis, unspecified organism (4) Altered mental status: Qualified Codes: R41.82 - Altered mental status, unspecified Anselmo Grissom MD Mar 21, 2018 14:42
[2018-03-21] MEDS ORDERED: POTASSIUM CHLORIDE 10 MEQ CONTROLLED RELEASE TAB PO ONE (14:45)
[2018-03-21] MEDS: ONDANSETRON ODT 4 MG TAB PO PRN (19:56)
[2018-03-21] MEDS: ATORVASTATIN 40 MG TAB PO SCH (21:07)
[2018-03-22] VITALS (8 sets, daily range): BP systolic 151–163; BP diastolic 95–99; PULSE 54–88; RESP 18–20; TEMP 97.3–98.6; O2SAT 95–99
[2018-03-22] MEDS: SODIUM CHLOR 0.9% 1000 ML INJ 1,000 ML IV SCH (04:10)
[2018-03-22] MEDS: ACETAMINOPHEN/HYDROcodone 325 MG/5 MG TAB PO PRN ×3 (06:27→20:43)
[2018-03-22 06:53] LABS: AUTOMATED NEUTROPHIL # 5.3 TH/MM3 (1.8-7.7); BASOPHIL % 0.2 % (0.0-2.0); EOSINOPHIL # 0.1 TH/MM3 (0-0.4); EOSINOPHIL % 0.7 % (0.0-4.0); HEMOGLOBIN 12.5 GM/DL (11.6-15.3); LYMPH % 20.1 % (9.0-44.0); LYMPHOCYTE # 1.5 TH/MM3 (1.0-4.8); MEAN CORPUSCULAR HEMOGLOBIN 30.8 PG (27.0-34.0); MEAN CORPUSCULAR HGB CONC 34.6 % (32.0-36.0); MEAN PLATELET VOLUME 6.9 FL (7.0-11.0); MONO % 9.8 % (0.0-8.0); MONOCYTE # 0.7 TH/MM3 (0-0.9); NEUT % 69.2 % (16.0-70.0); PLATELET COUNT 265 TH/MM3 (150-450); RED BLOOD COUNT 4.05 MIL/MM3 (4.00-5.30); RED CELL DISTRIBUTION WIDTH 14.3 % (11.6-17.2); WHITE BLOOD COUNT 7.6 TH/MM3 (4.0-11.0)
[2018-03-22 07:13] LABS: BICARBONATE 22.3 MEQ/L (21.0-32.0); CALCIUM 7.7 MG/DL (8.5-10.1); CREATININE 2.32 MG/DL (0.50-1.00); MAGNESIUM 1.3 MG/DL (1.5-2.5)
[2018-03-22] MEDS: METOPROLOL SUCCINATE 25 MG EXTENDED RELEASE TAB PO SCH (08:51)
[2018-03-22] MEDS: OXcarbazepine 150 MG TAB PO SCH ×2 (08:52→20:43)
[2018-03-22] MEDS: VANCOMYCIN 500 MG VIAL (FOR ORAL USE ONLY) PO SCH ×4 (08:52→20:44)
[2018-03-22] MEDS: VALSARTAN 160 MG TAB PO SCH (08:52)
[2018-03-22 09:27] LABS: BANDS 4 % (0-6); LYMPHOCYTES 15 % (9-44); METAMYELOCYTES 1 % (0-1); MONOCYTES 4 % (0-8); NEUTROPHIL # MANUAL DIFF 6.2 TH/MM3 (1.8-7.7); POLYS (SEG NEUTROPHILS) 76 % (16-70)
--- NOTE | 2018-03-22 12:01 | HHI.NPPN ---
Subjective History of Present Illness 53 year old with ARF CKD confused Additional Remarks Patient feels okay and wants to go home Objective Data Data 03/22/18 03/23/18 19:00 07:00 Output Total 1500 ml Balance -1500 ml Hemodialysis 1500 ml Vital Signs Date Time Temp Pulse Resp B/P (MAP) Pulse Ox O2 Delivery O2 Flow Rate FiO2 03/22/18 08:00 Room Air 03/22/18 08:00 97.6 65 20 163/96 (118) 96 03/22/18 04:00 Room Air 03/22/18 03:50 98.6 74 18 163/95 (117) 95 03/22/18 03:43 55 03/22/18 00:00 Room Air 03/21/18 23:41 64 03/21/18 23:30 98.2 71 18 155/89 (111) 94 03/21/18 20:00 Room Air 03/21/18 19:48 69 03/21/18 16:00 81 03/21/18 16:00 97.5 62 18 162/90 (114) 95 03/21/18 14:35 96 Nasal Cannula 2.00 -: 03/22/18 0540 03/22/18 0540 Physical Exam General Appearance: Well Developed Neck Neck Exam: Neck Supple Pulmonary Resp Exam: Rhonchi Cardiology CV Exam: Regular, Normal Sinus Rhythm Gastrointestinal/Abdomen GI Exam: Soft, Non-Tender, Bowel Sounds Present Integumentary Skin Exam: Clear Neurologic Neuro Exam: Alert Assessment/Plan Problem List: (1) Acute renal failure ICD Codes: N17.9 - Acute kidney failure, unspecified Status: Acute Plan: Patient has previous admission in December and the [facility] and has seen me with acute renal failure dehydration use of NSAID'S Responded to fluids at that time She is on pain medication and antianxiety medication and the combination may have caused her to become more confused and she developed urinary tract infection Creatinine declined potassium is very low this was replaced 30 MEQ dialysis seen during dialysis told him to back ultrafiltration and has urine output and creatinine declined We will hold it after today C. difficile is positive (2) Urinary tract infection ICD Codes: N39.0 - Urinary tract infection, site not specified Status: Acute Plan: Zosyn stop (3) Sepsis ICD Codes: A41.9 - Sepsis, unspecified organism Status: Acute Plan: HX of urinary tract infection (4) Altered mental status ICD Codes: R41.82 - Altered mental status, unspecified Status: Acute Plan: Underlying sepsis improved (5) Clostridium difficile colitis ICD Codes: A04.72 - Enterocolitis due to Clostridium difficile, not specified as recurrent Plan: Oral vancomycin Problem Qualifiers (1) Acute renal failure: Qualified Codes: N17.9 - Acute kidney failure, unspecified (2) Urinary tract infection: Qualified Codes: N39.0 - Urinary tract infection, site not specified; R31.9 - Hematuria, unspecified (3) Sepsis: Qualified Codes: A41.9 - Sepsis, unspecified organism (4) Altered mental status: Qualified Codes: R41.82 - Altered mental status, unspecified Anselmo Grissom MD Mar 22, 2018 12:01
--- NOTE | 2018-03-22 12:11 | HHI.PR ---
Subjective Remarks Low K replaced. Says still some diarrhea but improved significantly. No fever or chills.No n/v/. HD on hold as kidney function is improving Patient feels much better she is back at her baseline mentation she is alert and oriented x4 . Wants to go home. Objective Vitals Vital Signs Date Time Temp Pulse Resp B/P (MAP) Pulse Ox O2 Delivery O2 Flow Rate FiO2 03/22/18 12:00 96 21 03/22/18 08:00 Room Air 03/22/18 08:00 97.6 65 20 163/96 (118) 96 03/22/18 04:00 Room Air 03/22/18 03:50 98.6 74 18 163/95 (117) 95 03/22/18 03:43 55 03/22/18 00:00 Room Air 03/21/18 23:41 64 03/21/18 23:30 98.2 71 18 155/89 (111) 94 03/21/18 20:00 Room Air 03/21/18 19:48 69 03/21/18 16:00 81 03/21/18 16:00 97.5 62 18 162/90 (114) 95 03/21/18 14:35 96 Nasal Cannula 2.00 I/O 03/21/18 03/21/18 03/21/18 03/22/18 03/22/18 03/22/18 07:00 15:00 23:00 07:00 15:00 23:00 Intake Total 480 ml 1720 ml Output Total 1050 ml 1500 ml Balance 480 ml 670 ml -1500 ml Intake Oral 480 ml 720 ml IV Total 1000 ml Output Urine Total 1050 ml Hemodialysis 1500 ml # Voids 3 # Bowel Movements 0 Result Diagram: 03/22/18 0540 03/22/18 0540 Imaging Last Impressions Lumbar Puncture Fluoroscopy 03/18/18 0000 Signed Impressions: CONCLUSION: Uncomplicated fluoroscopically guided lumbar puncture with pressures as above. Catheter Placement X-Ray 03/18/18 0000 Signed Impressions: CONCLUSION: Uncomplicated ultrasound and fluoroscopic guided central venous dialysis cathet er placement as above. Renal Ultrasound 03/17/18 0000 Signed Impressions: CONCLUSION: Unremarkable sonographic appearance of the kidneys. Head Magnetic Resonance Angiography 03/16/182201 Signed Impressions: CONCLUSION: 1. Probable moderate stenosis distal left middle cerebral artery. Mild stenosi s proximal basilar artery. Brain MRI 03/16/18 2202 Signed Impressions: CONCLUSION: 1. No acute findings. No recent infarct. Mild white matter ischemic changes in the periventricular region. Head CT 03/16/18 1445 Signed Impressions: CONCLUSION: Unremarkable study except for questionable white matter lucency bi laterally may represent small vessel ischemic changes. Chest X-Ray 03/16/18 1445 Signed Impressions: CONCLUSION: Negative examination. Abdomen/Pelvis CT 03/16/18 0000 Signed Impressions: CONCLUSION: 1. No acute abnormality. Objective Remarks GENERAL: Very pleasant 53 yo F, awake and alert, doesn't appear in distress. CARDIOVASCULAR: Regular rate and rhythm without murmurs, gallops, or rubs. RESPIRATORY: Breath sounds equal bilaterally. No accessory muscle use. GASTROINTESTINAL: Abdomen soft, non-tender, nondistended. MUSCULOSKELETAL: No cyanosis, or edema. BACK: Nontender without obvious deformity. No CVA tenderness. NEURO: Awake and alert x4 at her baseline mentation. Follows commands. Normal speech. No focal deficit. A/P Problem List: (1) Uremic encephalopathy ICD Code: G93.41 - Metabolic encephalopathy; N19 - Unspecified kidney failure (2) Toxic encephalopathy ICD Code: G92 - Toxic encephalopathy (3) Acute metabolic encephalopathy ICD Code: G93.41 - Metabolic encephalopathy (4) Sepsis ICD Code: A41.9 - Sepsis, unspecified organism Status: Acute (5) Urinary tract infection ICD Code: N39.0 - Urinary tract infection, site not specified Status: Acute (6) Acute renal failure ICD Code: N17.9 - Acute kidney failure, unspecified Status: Acute Assessment and Plan 53 y/o female with a history of anxiety, depression, chronic pain presents to the ED with AMS. Sepsis, source UTI -resolved Discontinue Zosyn IV Q6H Urine and lumbar puncture NTD 2D echo to rule out endocarditis Metabolic and toxic vs uremic encephalopathy. Resolved. possibly due to pain medication and ARF Lumbar puncture March 18, 2018 EEG : Abnormal study on the basis of generalized slowing, consistent with a diffuse encephalopathy. 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 On hold HD at this time as kidney function is improving. avoid nephrotoxins Seizures, chronic Continue home medications; EEG-----Abnormal study on the basis of generalized slowing, consistent with a diffuse encephalopathy. Seizure precautions C. difficile diarrhea Currently on Flagyl IV 500 mg every 8H, and likely will switch to p.o. vancomycin today March 20, 2018 Anxiety Only resume home medications when kidney function improves as well as mentation DVT prophylaxis: Heparin Discussed with the patient, nurse, family at bedside Discharge plan. Patient is improving. Discharge when cleared by consultants. Still with diarrhea, however improving. HD on hold at this time as kidney function is improving. Problem Qualifiers (1) Sepsis: Qualified Codes: A41.9 - Sepsis, unspecified organism (2) Urinary tract infection: Qualified Codes: N39.0 - Urinary tract infection, site not specified; R31.9 - Hematuria, unspecified (3) Acute renal failure: Qualified Codes: N17.9 - Acute kidney failure, unspecified Irene Nuñez MD Mar 22, 2018 12:11
[2018-03-22] MEDS ORDERED: MAGNESIUM OXIDE 400 MG TAB PO ONE (12:15)
[2018-03-22] MEDS ORDERED: POTASSIUM CHLORIDE 10 MEQ CONTROLLED RELEASE TAB PO ONE (12:15)
[2018-03-22] MEDS: GENTAMICIN SULFATE 20 MG/2 ML VIAL OTHER PRN (12:22)
[2018-03-22] MEDS: HEPARIN SODIUM - IV 10,000 UNITS/10 ML VIAL PRN (12:23)
[2018-03-22] MEDS: ONDANSETRON ODT 4 MG TAB PO PRN ×2 (17:18→23:26)
[2018-03-22] MEDS: NICOTINE 21 MG/24 HR PATCH T-DERMAL SCH (17:20)
[2018-03-22] MEDS: ATORVASTATIN 40 MG TAB PO SCH (20:43)
[2018-03-23] VITALS: BP 149/97; PULSE 68; RESP 20; TEMP 98.3; O2SAT 97
[2018-03-23] MEDS: ACETAMINOPHEN/HYDROcodone 325 MG/5 MG TAB PO PRN ×2 (02:16→08:54)
[2018-03-23 04:00] VITALS: BP 121/83; PULSE 63; RESP 18; TEMP 98.1; O2SAT 97
[2018-03-23 04:10] VITALS: PULSE 68
[2018-03-23] MEDS: SODIUM CHLOR 0.9% 1000 ML INJ 1,000 ML IV SCH (05:51)
[2018-03-23 06:57] LABS: CALCIUM 7.9 MG/DL (8.5-10.1); CREATININE 1.7 MG/DL (0.50-1.00); MAGNESIUM 1.4 MG/DL (1.5-2.5)
[2018-03-23 07:04] LABS: AUTOMATED NEUTROPHIL # 5.2 TH/MM3 (1.8-7.7); BASOPHIL % 0.1 % (0.0-2.0); EOSINOPHIL % 0.3 % (0.0-4.0); HEMOGLOBIN 12.2 GM/DL (11.6-15.3); LYMPH % 20.4 % (9.0-44.0); LYMPHOCYTE # 1.5 TH/MM3 (1.0-4.8); MEAN CELL VOLUME 89.3 FL (80.0-100.0); MEAN CORPUSCULAR HEMOGLOBIN 31.1 PG (27.0-34.0); MEAN CORPUSCULAR HGB CONC 34.8 % (32.0-36.0); MONO % 9.4 % (0.0-8.0); MONOCYTE # 0.7 TH/MM3 (0-0.9); NEUT % 69.8 % (16.0-70.0); PLATELET COUNT 225 TH/MM3 (150-450); RED BLOOD COUNT 3.91 MIL/MM3 (4.00-5.30); RED CELL DISTRIBUTION WIDTH 14.4 % (11.6-17.2); WHITE BLOOD COUNT 7.5 TH/MM3 (4.0-11.0)
[2018-03-23 08:00] VITALS: BP 138/86; PULSE 64; RESP 20; TEMP 97.8; O2SAT 99
[2018-03-23] MEDS: ONDANSETRON ODT 4 MG TAB PO PRN (08:52)
[2018-03-23] MEDS: OXcarbazepine 150 MG TAB PO SCH (08:53)
[2018-03-23] MEDS: METOPROLOL SUCCINATE 25 MG EXTENDED RELEASE TAB PO SCH (08:54)
[2018-03-23] MEDS: VANCOMYCIN 500 MG VIAL (FOR ORAL USE ONLY) PO SCH ×2 (08:54→12:02)
[2018-03-23] MEDS: VALSARTAN 160 MG TAB PO SCH (08:54)
[2018-03-23] MEDS: NICOTINE 21 MG/24 HR PATCH T-DERMAL SCH (08:56)
[2018-03-23] MEDS ORDERED: MAGNESIUM OXIDE 400 MG TAB PO SCH (09:00)
[2018-03-23] MEDS ORDERED: REMOVE OLD PATCH T-DERMAL SCH (09:00)
[2018-03-23] MEDS ORDERED: VANC500I3 PO (09:34)
--- NOTE | 2018-03-23 09:34 | HHI.DS ---
Discharge Summary Admission Date Mar 16, 2018 at 20:32 Discharge Date: Mar 23, 2018 Admitting Diagnosis Acute renal failure, urinary tract infection, altered mental status (1) Uremic encephalopathy ICD Code: G93.41 - Metabolic encephalopathy; N19 - Unspecified kidney failure (2) Toxic encephalopathy ICD Code: G92 - Toxic encephalopathy (3) Acute metabolic encephalopathy ICD Code: G93.41 - Metabolic encephalopathy (4) Sepsis ICD Code: A41.9 - Sepsis, unspecified organism Status: Acute (5) Urinary tract infection ICD Code: N39.0 - Urinary tract infection, site not specified Status: Acute (6) Acute renal failure ICD Code: N17.9 - Acute kidney failure, unspecified Status: Acute Procedures vas cath placement and removal Brief History - From Admission 53 y/o female with a history of anxiety, seizures, depression, chronic pain presents to the ED with AMS. Patient was brought in by her who states she has been confused for the last 3 days. Upon examination patient is confused only oriented x 1 and is clinching her fists and flexing her feet intermittently. When asked questions she just mumbles and does not make any sense. She is able to follow commands. is not as bedside for questioning. Per ER report patients husbands states she has been sleeping al ot and not eating or drinking. The patient does take morphine and Xanax at home and it is unsure if she took more than she should have. CBC/BMP: 03/23/18 0500 03/23/18 0500 Significant Findings Laboratory Tests Test 03/21/18 04:50 03/22/18 05:40 03/23/18 05:00 Blood Urea Nitrogen 19 MG/DL (7-18) 19 MG/DL (7-18) Creatinine 2.92 MG/DL (0.50-1.00) 2.32 MG/DL (0.50-1.00) 1.70 MG/DL (0.50-1.00) Calcium Level 8.2 MG/DL (8.5-10.1) 7.7 MG/DL (8.5-10.1) 7.9 MG/DL (8.5-10.1) Potassium Level 3.2 MEQ/L (3.5-5.1) 3.3 MEQ/L (3.5-5.1) 3.1 MEQ/L (3.5-5.1) Chloride Level 108 MEQ/L (98-107) 108 MEQ/L (98-107) Estimat Glomerular Filtration Rate 17 ML/MIN (>89) 22 ML/MIN (>89) 31 ML/MIN (>89) Mean Platelet Volume 6.9 FL (7.0-11.0) Monocytes (%) (Auto) 9.8 % (0.0-8.0) 9.4 % (0.0-8.0) Neutrophils % (Manual) 76 % (16-70) Magnesium Level 1.3 MG/DL (1.5-2.5) 1.4 MG/DL (1.5-2.5) Red Blood Count 3.91 MIL/MM3 (4.00-5.30) Imaging Last Impressions Lumbar Puncture Fluoroscopy 03/18/18 Signed Impressions: CONCLUSION: Uncomplicated fluoroscopically guided lumbar puncture with pressures as above. Catheter Placement X-Ray 03/18/18 Signed Impressions: CONCLUSION: Uncomplicated ultrasound and fluoroscopic guided central venous dialysis cathet er placement as above. Renal Ultrasound 03/17/18 Signed Impressions: CONCLUSION: Unremarkable sonographic appearance of the kidneys. Head Magnetic Resonance Angiography 03/16/182201 Signed Impressions: CONCLUSION: 1. Probable moderate stenosis distal left middle cerebral artery. Mild stenosi s proximal basilar artery. Brain MRI 03/16/182201 Signed Impressions: CONCLUSION: 1. No acute findings. No recent infarct. Mild white matter ischemic changes in the periventricular region. Head CT 03/16/181444 Signed Impressions: CONCLUSION: Unremarkable study except for questionable white matter lucency bi laterally may represent small vessel ischemic changes. Chest X-Ray 03/16/181444 Signed Impressions: CONCLUSION: Negative examination. Abdomen/Pelvis CT 03/16/18 Signed Impressions: CONCLUSION: 1. No acute abnormality. PE at Discharge GENERAL: Very pleasant 53 yo F, awake and alert, doesn't appear in distress. CARDIOVASCULAR: Regular rate and rhythm without murmurs, gallops, or rubs. RESPIRATORY: Breath sounds equal bilaterally. No accessory muscle use. GASTROINTESTINAL: Abdomen soft, non-tender, nondistended. MUSCULOSKELETAL: No cyanosis, or edema. BACK: Nontender without obvious deformity. No CVA tenderness. NEURO: Awake and alert x4 at her baseline mentation. Follows commands. Normal speech. No focal deficit. Pt update on day of discharge Patient improved significantly. Need dialysis. Patient feels much better she improved significantly and she is back at her baseline. She is ambulating without any problems eating well no nausea or vomiting no diarrhea or constipation. Hospital Course 53 y/o female with a history of anxiety, depression, chronic pain presents to the ED with AMS. Sepsis, source UTI -resolved Discontinue Zosyn IV Q6H Urine and lumbar puncture NTD 2D echo to rule out endocarditis Metabolic and toxic vs uremic encephalopathy. Resolved. possibly due to pain medication and ARF Lumbar puncture March 18, 2018 EEG : Abnormal study on the basis of generalized slowing, consistent with a diffuse encephalopathy. Ammonia level, cardiac enzyme wnl Hold all [employer] depressant medication Brain MRI/MRA ruled out ischemic CVA; check RPR Continue with hemodialysis per nephrology Consult neuro if mentation does not improve with kidney function Acute Renal Failure, creatine 8.9 with rhabdomyolysis on admission CPK 2095 on admission-resolved Renal indices improving decrease IVF rate to 70ml/hr Appreciate input from nephrology; and continue with HD as needed per nephrology. On hold HD at this time as kidney function is improving. avoid nephrotoxins Seizures, chronic Continue home medications; EEG-----Abnormal study on the basis of generalized slowing, consistent with a diffuse encephalopathy. Seizure precautions C. difficile diarrhea. Diarrhea resolved. Continue vancomycin as outpatient. Currently on Flagyl IV 500 mg every 8H, and switch to p.o. vancomycin March 20, 2018 Anxiety Only resume home medications when kidney function improves as well as mentation DVT prophylaxis: Heparin Discussed with the patient, nurse, family at bedside The patient improved significantly. She is back at her baseline. No need for dialysis. Kidney function improved significantly. Cleared by Dr. Grissom nephrology specialist for discharge. Patient does not need dialysis. Vas-Cath was removed. Patient to follow-up as outpatient with PCP and consultants. Pt Condition on Discharge: Stable Discharge Disposition: Discharge Home Discharge Time: > 30 minutes Discharge Instructions DIET: Follow Instructions for: Heart Healthy Diet Activities you can perform: Regular-No Restrictions Follow up Referrals: Appointment for Follow Up - 1 Week @ [facility] MD Nephrology - 1 Week PCP Follow-up - 2-3 Days PCP Follow-up - 2-3 Days @ [facility] MD [phone] New Medications: Vancomycin Inj (Vancomycin Inj) 500 Mg Inj 125 MG PO QID for c diff for 14 Days, INJECTION Continued Medications: Acyclovir (Acyclovir) 800 Mg Tab 800 MG PO TID for Mgmt Viral Infection, TAB 0 Refills Albuterol 18 GM Inh (Ventolin Hfa 18 GM Inh) 90 Mcg/Act Aer 1 PUFF INH Q4H PRN for SHORTNESS OF BREATH, #1 INHALER 0 Refills Alprazolam (Alprazolam) 1 Mg Tab 1 MG PO Q8H PRN for ANXIETY, TAB 0 Refills Aripiprazole (Abilify) 10 Mg Tab 5 MG PO DAILY, #30 TAB 0 Refills Atorvastatin (Atorvastatin) 40 Mg Tab 40 MG PO HS for Cholesterol Management, #30 TAB 0 Refills Metoprolol Succinate ER 24 HR (Metoprolol Succinate ER 24 HR) 25 Mg Tab 25 MG PO DAILY, #30 TAB 0 Refills Morphine Sulfate ER 12 HR (Morphabond ER 12 HR) 15 Mg Tab 15 MG PO Q8HR, TAB 0 Refills Oxcarbazepine (Oxcarbazepine) 150 Mg Tab 150 MG PO BID for Seizure Control, #30 TAB 0 Refills Pantoprazole (Pantoprazole) 40 Mg Tab 40 MG PO DAILY for Reflux, #30 TAB 0 Refills Valsartan (Valsartan) 320 Mg Tab 320 MG PO DAILY, #30 TAB 0 Refills Venlafaxine (Effexor) 100 Mg Tab 150 MG PO DAILY NEB, #60 TAB 0 Refills Irene Nuñez MD Mar 23, 2018 09:34
[2018-03-23] MEDS ORDERED: POTASSIUM CHLORIDE 10 MEQ CONTROLLED RELEASE TAB PO ONE (10:20)
[2018-03-23 11:37] VITALS: O2SAT 99
[2018-03-23 11:50] VITALS: BP 160/93; PULSE 62; RESP 20; TEMP 97.8; O2SAT 96
[2018-03-23] MEDS: LORazepam 2 MG/ML VIAL IV PUSH PRN (12:51)
--- NOTE | 2018-03-23 14:01 | ECHRPT ---
Indication: Shortness of breath CONCLUSIONS Normal left ventricular size and wall thickness. The left ventricular systolic function is normal wi th an estimated ejection fraction in the range of 60-65%. Normal wall motion. Trace mitral valve regurgitation. There is mild tricuspid regurgitation. The estimated pulmonary arterial pressure is 40 mmHg. BP: 112 / 65 HR: 106 Rhythm: Sinus MEASUREMENTS (Male / Female) Normal Values Technical Quality:Good 2D ECHO LV Diastolic Diameter PLAX 4.7 cm 4.2 - 5.9 / 3.9 - 5.3 cm LV Systolic Diameter PLAX 3.4 cm IVS Diastolic Thickness 1.0 cm 0.6 - 1.0 / 0.6 - 0.9 cm LVPW Diastolic Thickness 1.0 cm 0.6 - 1.0 / 0.6 - 0.9 cm LV Relative Wall Thickness 0.4 LVOT Diameter 2.1 cm M-MODE Aortic Root Diameter MM 3.0 cm LA Systolic Diameter MM 3.7 cm LA Ao Ratio MM 1.2 AV Cusp Separation MM 2.0 cm DOPPLER AV Peak Velocity 162.0 cm/s AV Peak Gradient 10.5 mmHg LVOT Peak Velocity 116.0 cm/s LVOT Peak Gradient 5.4 mmHg AV Area Cont Eq pk 2.5 cm MR Peak Velocity 307.0 cm/s MR Peak Gradient 37.7 mmHg Mitral E Point Velocity 107.0 cm/s Mitral A Point Velocity 36.5 cm/s Mitral E to A Ratio 2.9 LV E' Lateral Velocity 8.8 cm/s Mitral E to LV E' Lateral Ratio 12.2 LV E' Septal Velocity 9.2 cm/s Mitral E to LV E' Septal Ratio 11.7 TR Peak Velocity 289.0 cm/s TR Peak Gradient 33.4 mmHg Right Atrial Pressure 10.0 mmHg Pulmonary Artery Systolic Pressu 43.4 mmHg Right Ventricular Systolic Press 43.4 mmHg PV Peak Velocity 92.3 cm/s PV Peak Gradient 3.4 mmHg FINDINGS LEFT VENTRICLE Normal left ventricular size and wall thickness. The left ventricular systolic function is normal wi th an estimated ejection fraction in the range of 60-65%. Normal wall motion. RIGHT VENTRICLE Normal right ventricular size and systolic function. LEFT ATRIUM The left atrial size is normal. RIGHT ATRIUM The right atrial size is normal. ATRIAL SEPTUM Normal atrial septal thickness without atrial level shunting by limited color doppler interrogation. AORTA The aortic root and proximal ascending aorta are normal in size on limited imaging. MITRAL VALVE Trace mitral valve regurgitation. AORTIC VALVE Trileaflet aortic valve. No aortic valve stenosis or regurgitation. TRICUSPID VALVE There is mild tricuspid regurgitation. The estimated pulmonary arterial pressure is 40 mmHg. PULMONARY VALVE No pulmonary valve regurgitation or stenosis. VESSELS The inferior vena cava is normal in size. PERICARDIUM No pericardial effusion. Jc Flores MD (Electronically Signed) Final Date:23 March 2018 14:00
--- NOTE | 2018-03-23 15:14 | HHI.NPPN ---
Subjective History of Present Illness 53 year old with ARF CKD confused Additional Remarks Patient feels okay and wants to go home Objective Data Data Vital Signs Date Time Temp Pulse Resp B/P (MAP) Pulse Ox O2 Delivery O2 Flow Rate FiO2 03/23/18 11:50 97.8 62 20 160/93 (115) 96 03/23/18 11:37 99 03/23/18 08:00 Room Air 03/23/18 08:00 97.8 64 20 138/86 (103) 99 03/23/18 04:10 68 03/23/18 04:00 98.1 63 18 121/83 (96) 97 03/23/18 00:00 98.3 68 20 149/97 (114) 97 03/22/18 23:47 60 03/22/18 20:00 Room Air 03/22/18 20:00 98.2 88 20 151/99 (116) 96 03/22/18 19:48 84 03/22/18 16:00 62 03/22/18 16:00 97.3 63 20 163/97 (119) 99 -: 03/23/18 0500 03/23/18 0500 Physical Exam General Appearance: Well Developed Neck Neck Exam: Neck Supple Pulmonary Resp Exam: Rhonchi Cardiology CV Exam: Regular, Normal Sinus Rhythm Gastrointestinal/Abdomen GI Exam: Soft, Non-Tender, Bowel Sounds Present Integumentary Skin Exam: Clear Neurologic Neuro Exam: Alert Assessment/Plan Problem List: (1) Acute renal failure ICD Codes: N17.9 - Acute kidney failure, unspecified Status: Acute Plan: Patient [facility] me with acute renal failure dehydration use of NSAID'S Responded to fluids at that time She is on pain medication and antianxiety medication and the combination may have caused her to become more confused and she developed urinary tract infection Creatinine declined potassium is very low this was replaced 30 MEQ cr declined dc vascath OK to go home (2) Urinary tract infection ICD Codes: N39.0 - Urinary tract infection, site not specified Status: Acute Plan: Zosyn stop (3) Sepsis ICD Codes: A41.9 - Sepsis, unspecified organism Status: Acute Plan: HX of urinary tract infection (4) Altered mental status ICD Codes: R41.82 - Altered mental status, unspecified Status: Acute Plan: Underlying sepsis improved (5) Clostridium difficile colitis ICD Codes: A04.72 - Enterocolitis due to Clostridium difficile, not specified as recurrent Plan: Oral vancomycin Problem Qualifiers (1) Acute renal failure: Qualified Codes: N17.9 - Acute kidney failure, unspecified (2) Urinary tract infection: Qualified Codes: N39.0 - Urinary tract infection, site not specified; R31.9 - Hematuria, unspecified (3) Sepsis: Qualified Codes: A41.9 - Sepsis, unspecified organism (4) Altered mental status: Qualified Codes: R41.82 - Altered mental status, unspecified Anselmo Grissom MD Mar 23, 2018 15:14
== END 2018-03-23 15:50 | disposition home or self-care (01) | DRG 871 ==
LOC: NEPC 14:00 → NEDA 18:11 → N04B 19:06 → OBSVTOIN 20:32
PROVIDERS: ADMIT Hospitalist; ATTEND Hospitalist
PROC: 009U3ZX Drainage of Spinal Canal, Percutaneous Approach, Diagnostic (ICD-10-PCS; principal; 2018-03-18)
PROC: B01BZZZ Fluoroscopy of Spinal Cord (ICD-10-PCS; 2018-03-18)
PROC: 05HM33Z Insertion of Infusion Device into Right Internal Jugular Vein, Percutaneous Approach (ICD-10-PCS; 2018-03-18)
PROC: B513ZZA Fluoroscopy of Right Jugular Veins, Guidance (ICD-10-PCS; 2018-03-18)
PROC: B543ZZA Ultrasonography of Right Jugular Veins, Guidance (ICD-10-PCS; 2018-03-18)
PROC: 5A1D70Z Performance of Urinary Filtration, Intermittent, Less than 6 Hours Per Day (ICD-10-PCS; 2018-03-18)
DX: A41.9 Sepsis, unspecified organism (principal); G92 Toxic encephalopathy; N17.9 Acute kidney failure, unspecified; A04.72 Enterocolitis due to Clostridium difficile, not specified as recurrent; M62.82 Rhabdomyolysis; N39.0 Urinary tract infection, site not specified; E87.6 Hypokalemia; K21.9 Gastro-esophageal reflux disease without esophagitis; N18.9 Chronic kidney disease, unspecified; I12.9 Hypertensive chronic kidney disease with stage 1 through stage 4 chronic kidney disease, or unspecified chronic kidney disease; G89.4 Chronic pain syndrome; R09.02 Hypoxemia; T40.2X5A Adverse effect of other opioids, initial encounter; F32.9 Major depressive disorder, single episode, unspecified; F41.9 Anxiety disorder, unspecified; R00.0 Tachycardia, unspecified; Z72.0 Tobacco use; Z78.1 Physical restraint status
CPT/HCPCS: 36556; 62270; 70450; 70544; 70551; 71045; 74176; 76775; 76937; 77001; 77003; 80048; 80053; 80074; 80307; 81001; 82550; 82552; 82570; 82945; 82948; 83605; 83735; 84157; 84165; 84300; 84484; 85007; 85025; 85027; 85610; 86021; 86038; 86160; 86592; 87015; 87040; 87070; 87086; 87102; 87116; 87205; 87206; 87493; 88108; 89051; 90935; 93005; 93306; 95819; 96360; 96361; 96374; 96375; C1752; J1580; J1644; J2060; J2543; J7030; Q4081

== ENCOUNTER 2018-04-15 07:49 | Inpatient (IN) ==
[2018-04-15] MEDS ORDERED: Sod Chloride 0.9% Inj 1,000 ML IV.SIG ONE ×3 (08:30→10:50)
--- NOTE | 2018-04-15 08:39 | ED ---
HPI General Chief complaint: Urogenital-Female Stated complaint: confusion/PHY SENT Time Seen by Provider: 04/15/18 08:30 Source: patient and family Mode of arrival: ambulatory Limitations: no limitations History of Present Illness HPI narrative: 53-year-old female was brought in by her for confusion, uncontrollable jerking intermittent, generalized malaise and weakness. Patient states that the symptoms started several days ago. Patient recently was fitted for dentures not fitting well. Patient states that she has not been able to eat much for the past few days. Patient has history of seizure, anxiety depression, chronic pain. patient was admitted to [facility] March 16 and discharged March 23 with diagnosis of uremic encephalopathy, acute metabolic encephalopathy, sepsis and UTI. Patient states that she was doing better and then get worse recently. Patient denies any fever chills. Patient denies any headache. Patient denies any chest pain or shortness of breath. Patient denies abdominal pain. Patient denies any nausea vomiting diarrhea. Patient denies any dysuria frequency. Onset (ago): day(s) Severity: moderate and severe Associated symptoms: confusion, loss of appetite and malaise Related Data Home Medications Medication Instructions Recorded Confirmed alprazolam 1 mg PO TID 04/15/18 04/15/18 aripiprazole [Abilify] 10 mg PO DAILY 04/15/18 04/15/18 atorvastatin 40 mg PO DAILY 04/15/18 04/15/18 metoprolol succinate 25 mg PO DAILY 04/15/18 04/15/18 morphine 15 mg PO Q8HR PRN 04/15/18 04/15/18 oxcarbazepine 150 mg PO BID 04/15/18 04/15/18 pantoprazole 40 mg PO DAILY 04/15/18 04/15/18 valsartan 320 mg PO DAILY 04/15/18 04/15/18 venlafaxine 100 mg PO BID 04/15/18 04/15/18 Allergies Allergy/AdvReac Type Severity Reaction Status Date / Time meloxicam Allergy Intermediate Weakness Verified 04/15/18 08:39 Sulfa (Sulfonamide Allergy Intermediate Flushing Verified 04/15/18 08:39 Antibiotics) gabapentin Allergy Flushing Verified 04/15/18 08:39 Review of Systems Except as stated in HPI: all other systems reviewed are negative PMFSH Medical History Medical History Bipolar 1 disorder (Acute) Chronic pain (Acute) Depression (Acute) Hernia (Acute) High cholesterol (Acute) Hypertension (Acute) Osteoarthritis (Acute) Social History Social History Substance History: Past History Second Hand Smoke Exposure: Yes Smoking Status: Current every day smoker Tobacco Type: Cigarettes How Often Do You Have a Drink Containing Alcohol: Never Recent Travel in [facility] within the Last 8 Weeks: No Recent Out of Country Travel within the Last 8 Weeks: No Immunization History Tetanus Immunization: <5 Years Hx Influenza Vaccine This Season: No Exam Narrative Exam Narrative: GENERAL: Well-nourished, well-developed patient. SKIN: Focused skin assessment warm/dry. HEAD: Normocephalic. EYES: No scleral icterus. No injection or drainage. NECK: Supple, trachea midline. No JVD or lymphadenopathy. CARDIOVASCULAR: Regular rate and rhythm without murmurs, gallops, or rubs. RESPIRATORY: Breath sounds equal bilaterally. No accessory muscle use. GASTROINTESTINAL: Abdomen soft, non-tender, nondistended. MUSCULOSKELETAL: No cyanosis, or edema. BACK: Nontender without obvious deformity. No CVA tenderness. Neurologic exam: Patient is awake and alert oriented 3. Patient moves all extremity well. No obvious focal neurological deficit. Course Initial Documented Vital Signs Temperature 97.9 F 04/15/18 07:53 Pulse Rate 94 H 04/15/18 07:53 Respiratory Rate 17 04/15/18 07:53 Blood Pressure 87/53 L 04/15/18 07:53 Last Documented Vital Signs Temperature 98.0 F 04/17/18 12:00 Pulse Rate 82 04/17/18 12:00 Respiratory Rate 18 04/17/18 12:00 Blood Pressure 112/77 04/17/18 12:00 Pulse Oximetry 95 04/17/18 12:00 Medical Decision Making MDM Narrative Medical decision making narrative: 53-year-old female with mental confusion, generalized malaise and weakness, occasionally uncontrollable muscle jerking extremity jerking. Normal saline solution 1 L IV bolus. Repeated normal saline solution 1 L IV bolus. Differential Diagnosis Differential Diagnosis: Differential diagnosis including dehydration, electrolyte imbalance, metabolic encephalopathy, uremic encephalopathy, sepsis. Lab Data Result diagrams: 04/17/18 06:55 04/17/18 06:55 Lab Results 04/15/18 04/15/18 04/15/18 Range/Units 08:54 08:54 08:54 WBC 7.1 (4.0-11.0) th/mm3 RBC 3.90 L (4.00-5.30) mil/mm3 Hgb 12.2 (11.6-15.3) gm/dL Hct 35.5 (35.0-46.0) % MCV 91.0 (80.0-100.0) fL MCH 31.3 (27.0-34.0) pg MCHC 34.4 (32.0-36.0) % RDW 14.9 (11.6-17.2) % Plt Count 314 (150-450) th/mm3 MPV 8.5 (7.0-11.0) fL Neut % (Auto) 74.4 H (16.0-70.0) % Lymph % (Auto) 16.1 (9.0-44.0) % [place] % (Auto) 9.3 H (0.0-8.0) % Eos % (Auto) 0.1 (0.0-4.0) % Baso % (Auto) 0.1 (0.0-2.0) % Neut # (Auto) 5.3 (1.8-7.7) th/mm3 Lymph # (Auto) 1.1 (1.0-4.8) th/mm3 [place] # (Auto) 0.7 (0.0-0.9) th/mm3 Eos # (Auto) 0.0 (0.0-0.4) th/mm3 Baso # (Auto) 0.0 (0.0-0.2) th/mm3 WBC Differential . Differential Comment Auto diff final PT 10.8 (9.8-11.6) sec INR 1.1 Ratio APTT 32.7 H (24.3-30.1) sec Sodium 134 L (136-145) meq/L Potassium 5.1 (3.5-5.1) meq/L Chloride 99 (98-107) meq/L Carbon Dioxide 17.2 L (21.0-32.0) meq/L Anion Gap 18 H (5-15) meq/L BUN 64 H (7-18) mg/dL Creatinine 14.12 H* (0.50-1.00) mg/dL Estimated GFR 3 L (>89) mL/min POC Glucose (68-110) mg/dl Random Glucose 72 L (74-106) mg/dL Lactic Acid (0.4-2.0) mmol/L Calcium 9.4 (8.5-10.1) mg/dL Phosphorus (2.5-4.9) mg/dL Magnesium (1.5-2.5) mg/dL Total Bilirubin 0.4 (0.2-1.0) mg/dL AST 13 L (15-37) U/L ALT 15 (10-53) U/L Alkaline Phosphatase 157 H (45-117) U/L Total Creatine Kinase 302 H (26-192) U/L CK-MB (CK-2) 18.1 H (0.5-3.6) ng/mL CK-MB (CK-2) % 6.0 H* (0.0-4.0) % Troponin I Less than 0.02 L (0.02-0.05) ng/mL Total Protein 7.8 (6.4-8.2) g/dL Albumin 3.5 (3.4-5.0) g/dL Lipase 140 (73-393) U/L Urine Color (Yellw/Straw) Urine Clarity (Clear) Urine pH (5.0-8.5) Ur Specific Elwin (1.002-1.035) Urine Protein (Neg-Trace) mg/dL Urine Glucose (UA) (Negative) mg/dL Urine Ketones (Negative) mg/dL Urine Occult Blood (Negative) Urine Nitrate (Negative) Urine Bilirubin (Negative) Urine Urobilinogen (Less than 2) mg/dL Ur Leukocyte Esterase (Negative) Urine RBC (0-3) /hpf Urine WBC (0-5) /hpf Urine WBC Clumps (None) Ur Squamous Epith Cells (0-5) /hpf Amorphous Sediment (None) /hpf Urine Bacteria (None) /hpf Hyaline Casts (0-3) /lpf Urine Mucus (Occasional) /lpf Micro UA Comment Urine Culture Comments Urine Osmolality (300-1300) mosm/kg Ur Random Creatinine (27-300) mg/dL Ur Random Sodium meq/L 04/15/18 04/15/18 04/15/18 Range/Units 08:54 10:20 10:20 WBC (4.0-11.0) th/mm3 RBC (4.00-5.30) mil/mm3 Hgb (11.6-15.3) gm/dL Hct (35.0-46.0) % MCV (80.0-100.0) fL MCH (27.0-34.0) pg MCHC (32.0-36.0) % RDW (11.6-17.2) % Plt Count (150-450) th/mm3 MPV (7.0-11.0) fL Neut % (Auto) (16.0-70.0) % Lymph % (Auto) (9.0-44.0) % [place] % (Auto) (0.0-8.0) % Eos % (Auto) (0.0-4.0) % Baso % (Auto) (0.0-2.0) % Neut # (Auto) (1.8-7.7) th/mm3 Lymph # (Auto) (1.0-4.8) th/mm3 [place] # (Auto) (0.0-0.9) th/mm3 Eos # (Auto) (0.0-0.4) th/mm3 Baso # (Auto) (0.0-0.2) th/mm3 WBC Differential Differential Comment PT (9.8-11.6) sec INR Ratio APTT (24.3-30.1) sec Sodium (136-145) meq/L Potassium (3.5-5.1) meq/L Chloride (98-107) meq/L Carbon Dioxide (21.0-32.0) meq/L Anion Gap (5-15) meq/L BUN (7-18) mg/dL Creatinine (0.50-1.00) mg/dL Estimated GFR (>89) mL/min POC Glucose (68-110) mg/dl Random Glucose (74-106) mg/dL Lactic Acid 0.5 (0.4-2.0) mmol/L Calcium (8.5-10.1) mg/dL Phosphorus (2.5-4.9) mg/dL Magnesium (1.5-2.5) mg/dL Total Bilirubin (0.2-1.0) mg/dL AST (15-37) U/L ALT (10-53) U/L Alkaline Phosphatase (45-117) U/L Total Creatine Kinase (26-192) U/L CK-MB (CK-2) (0.5-3.6) ng/mL CK-MB (CK-2) % (0.0-4.0) % Troponin I (0.02-0.05) ng/mL Total Protein (6.4-8.2) g/dL Albumin (3.4-5.0) g/dL Lipase (73-393) U/L Urine Color Yellow (Yellw/Straw) Urine Clarity Cloudy H (Clear) Urine pH 6.0 (5.0-8.5) Ur Specific Elwin 1.009 (1.002-1.035) Urine Protein 30 H (Neg-Trace) mg/dL Urine Glucose (UA) Negative (Negative) mg/dL Urine Ketones Negative (Negative) mg/dL Urine Occult Blood Moderate H (Negative) Urine Nitrate Positive H (Negative) Urine Bilirubin Negative (Negative) Urine Urobilinogen Less than 2 (Less than 2) mg/dL Ur Leukocyte Esterase Large H (Negative) Urine RBC 7 H (0-3) /hpf Urine WBC 154 H (0-5) /hpf Urine WBC Clumps Many H (None) Ur Squamous Epith Cells 1 (0-5) /hpf Amorphous Sediment Moderate H (None) /hpf Urine Bacteria Moderate H (None) /hpf Hyaline Casts 3 (0-3) /lpf Urine Mucus Few H (Occasional) /lpf Micro UA Comment Cath-culture ind Urine Culture Comments Cath-cult indicated Urine Osmolality (300-1300) mosm/kg Ur Random Creatinine 122 (27-300) mg/dL Ur Random Sodium 62 meq/L 04/15/18 04/16/18 04/16/18 Range/Units 10:20 06:08 06:08 WBC 7.4 (4.0-11.0) th/mm3 RBC 3.44 L (4.00-5.30) mil/mm3 Hgb 10.5 L (11.6-15.3) gm/dL Hct 31.4 L (35.0-46.0) % MCV 91.3 (80.0-100.0) fL MCH 30.6 (27.0-34.0) pg MCHC 33.6 (32.0-36.0) % RDW 14.9 (11.6-17.2) % Plt Count 280 (150-450) th/mm3 MPV 8.2 (7.0-11.0) fL Neut % (Auto) 75.5 H (16.0-70.0) % Lymph % (Auto) 15.6 (9.0-44.0) % [place] % (Auto) 8.6 H (0.0-8.0) % Eos % (Auto) 0.1 (0.0-4.0) % Baso % (Auto) 0.2 (0.0-2.0) % Neut # (Auto) 5.6 (1.8-7.7) th/mm3 Lymph # (Auto) 1.2 (1.0-4.8) th/mm3 [place] # (Auto) 0.6 (0.0-0.9) th/mm3 Eos # (Auto) 0.0 (0.0-0.4) th/mm3 Baso # (Auto) 0.0 (0.0-0.2) th/mm3 WBC Differential . Differential Comment Auto diff final PT (9.8-11.6) sec INR Ratio APTT (24.3-30.1) sec Sodium 140 (136-145) meq/L Potassium 4.7 (3.5-5.1) meq/L Chloride 110 H D (98-107) meq/L Carbon Dioxide 10.6 L (21.0-32.0) meq/L Anion Gap 19 H (5-15) meq/L BUN 58 H (7-18) mg/dL Creatinine 12.98 H* D (0.50-1.00) mg/dL Estimated GFR 3 L (>89) mL/min POC Glucose (68-110) mg/dl Random Glucose 31 L* (74-106) mg/dL Lactic Acid (0.4-2.0) mmol/L Calcium 8.2 L D (8.5-10.1) mg/dL Phosphorus (2.5-4.9) mg/dL Magnesium (1.5-2.5) mg/dL Total Bilirubin 0.3 (0.2-1.0) mg/dL AST 15 (15-37) U/L ALT 9 L (10-53) U/L Alkaline Phosphatase 123 H (45-117) U/L Total Creatine Kinase (26-192) U/L CK-MB (CK-2) (0.5-3.6) ng/mL CK-MB (CK-2) % (0.0-4.0) % Troponin I (0.02-0.05) ng/mL Total Protein 6.2 L D (6.4-8.2) g/dL Albumin 2.7 L D (3.4-5.0) g/dL Lipase (73-393) U/L Urine Color (Yellw/Straw) Urine Clarity (Clear) Urine pH (5.0-8.5) Ur Specific Elwin (1.002-1.035) Urine Protein (Neg-Trace) mg/dL Urine Glucose (UA) (Negative) mg/dL Urine Ketones (Negative) mg/dL Urine Occult Blood (Negative) Urine Nitrate (Negative) Urine Bilirubin (Negative) Urine Urobilinogen (Less than 2) mg/dL Ur Leukocyte Esterase (Negative) Urine RBC (0-3) /hpf Urine WBC (0-5) /hpf Urine WBC Clumps (None) Ur Squamous Epith Cells (0-5) /hpf Amorphous Sediment (None) /hpf Urine Bacteria (None) /hpf Hyaline Casts (0-3) /lpf Urine Mucus (Occasional) /lpf Micro UA Comment Urine Culture Comments Urine Osmolality 239 L (300-1300) mosm/kg Ur Random Creatinine (27-300) mg/dL Ur Random Sodium meq/L 04/16/18 04/16/18 04/17/18 Range/Units 09:23 11:53 01:45 WBC 5.2 (4.0-11.0) th/mm3 RBC 3.30 L (4.00-5.30) mil/mm3 Hgb 10.1 L (11.6-15.3) gm/dL Hct 29.5 L (35.0-46.0) % MCV 89.4 (80.0-100.0) fL MCH 30.6 (27.0-34.0) pg MCHC 34.2 (32.0-36.0) % RDW 14.9 (11.6-17.2) % Plt Count 266 (150-450) th/mm3 MPV 8.0 (7.0-11.0) fL Neut % (Auto) (16.0-70.0) % Lymph % (Auto) (9.0-44.0) % [place] % (Auto) (0.0-8.0) % Eos % (Auto) (0.0-4.0) % Baso % (Auto) (0.0-2.0) % Neut # (Auto) (1.8-7.7) th/mm3 Lymph # (Auto) (1.0-4.8) th/mm3 [place] # (Auto) (0.0-0.9) th/mm3 Eos # (Auto) (0.0-0.4) th/mm3 Baso # (Auto) (0.0-0.2) th/mm3 WBC Differential Differential Comment PT (9.8-11.6) sec INR Ratio APTT (24.3-30.1) sec Sodium (136-145) meq/L Potassium (3.5-5.1) meq/L Chloride (98-107) meq/L Carbon Dioxide (21.0-32.0) meq/L Anion Gap (5-15) meq/L BUN (7-18) mg/dL Creatinine (0.50-1.00) mg/dL Estimated GFR (>89) mL/min POC Glucose 53 L 121 H (68-110) mg/dl Random Glucose (74-106) mg/dL Lactic Acid (0.4-2.0) mmol/L Calcium (8.5-10.1) mg/dL Phosphorus (2.5-4.9) mg/dL Magnesium (1.5-2.5) mg/dL Total Bilirubin (0.2-1.0) mg/dL AST (15-37) U/L ALT (10-53) U/L Alkaline Phosphatase (45-117) U/L Total Creatine Kinase (26-192) U/L CK-MB (CK-2) (0.5-3.6) ng/mL CK-MB (CK-2) % (0.0-4.0) % Troponin I (0.02-0.05) ng/mL Total Protein (6.4-8.2) g/dL Albumin (3.4-5.0) g/dL Lipase (73-393) U/L Urine Color (Yellw/Straw) Urine Clarity (Clear) Urine pH (5.0-8.5) Ur Specific [place] (1.002-1.035) Urine Protein (Neg-Trace) mg/dL Urine Glucose (UA) (Negative) mg/dL Urine Ketones (Negative) mg/dL Urine Occult Blood (Negative) Urine Nitrate (Negative) Urine Bilirubin (Negative) Urine Urobilinogen (Less than 2) mg/dL Ur Leukocyte Esterase (Negative) Urine RBC (0-3) /hpf Urine WBC (0-5) /hpf Urine WBC Clumps (None) Ur Squamous Epith Cells (0-5) /hpf Amorphous Sediment (None) /hpf Urine Bacteria (None) /hpf Hyaline Casts (0-3) /lpf Urine Mucus (Occasional) /lpf Micro UA Comment Urine Culture Comments Urine Osmolality (300-1300) mosm/kg Ur Random Creatinine (27-300) mg/dL Ur Random Sodium meq/L 04/17/18 04/17/18 04/17/18 Range/Units 01:45 06:55 06:55 WBC 4.4 (4.0-11.0) th/mm3 RBC 3.37 L (4.00-5.30) mil/mm3 Hgb 10.4 L (11.6-15.3) gm/dL Hct 29.9 L (35.0-46.0) % MCV 88.8 (80.0-100.0) fL MCH 30.9 (27.0-34.0) pg MCHC 34.8 (32.0-36.0) % RDW 15.1 (11.6-17.2) % Plt Count 278 (150-450) th/mm3 MPV 7.7 (7.0-11.0) fL Neut % (Auto) 66.2 (16.0-70.0) % Lymph % (Auto) 23.8 (9.0-44.0) % [place] % (Auto) 9.5 H (0.0-8.0) % Eos % (Auto) 0.4 (0.0-4.0) % Baso % (Auto) 0.1 (0.0-2.0) % Neut # (Auto) 2.9 (1.8-7.7) th/mm3 Lymph # (Auto) 1.0 (1.0-4.8) th/mm3 [place] # (Auto) 0.4 (0.0-0.9) th/mm3 Eos # (Auto) 0.0 (0.0-0.4) th/mm3 Baso # (Auto) 0.0 (0.0-0.2) th/mm3 WBC Differential . Differential Comment Auto diff final PT (9.8-11.6) sec INR Ratio APTT (24.3-30.1) sec Sodium 141 141 (136-145) meq/L Potassium 4.4 3.8 (3.5-5.1) meq/L Chloride 110 H 107 (98-107) meq/L Carbon Dioxide 17.5 L 20.4 L (21.0-32.0) meq/L Anion Gap 14 14 (5-15) meq/L BUN 53 H 51 H (7-18) mg/dL Creatinine 11.37 H* D 10.88 H* (0.50-1.00) mg/dL Estimated GFR 3 L 4 L (>89) mL/min POC Glucose (68-110) mg/dl Random Glucose 101 98 (74-106) mg/dL Lactic Acid (0.4-2.0) mmol/L Calcium 8.1 L 8.1 L (8.5-10.1) mg/dL Phosphorus 8.1 H (2.5-4.9) mg/dL Magnesium 2.0 (1.5-2.5) mg/dL Total Bilirubin 0.2 (0.2-1.0) mg/dL AST 10 L (15-37) U/L ALT 10 (10-53) U/L Alkaline Phosphatase 112 (45-117) U/L Total Creatine Kinase (26-192) U/L CK-MB (CK-2) (0.5-3.6) ng/mL CK-MB (CK-2) % (0.0-4.0) % Troponin I (0.02-0.05) ng/mL Total Protein 6.0 L (6.4-8.2) g/dL Albumin 2.6 L (3.4-5.0) g/dL Lipase (73-393) U/L Urine Color (Yellw/Straw) Urine Clarity (Clear) Urine pH (5.0-8.5) Ur Specific [place]win (1.002-1.035) Urine Protein (Neg-Trace) mg/dL Urine Glucose (UA) (Negative) mg/dL Urine Ketones (Negative) mg/dL Urine Occult Blood (Negative) Urine Nitrate (Negative) Urine Bilirubin (Negative) Urine Urobilinogen (Less than 2) mg/dL Ur Leukocyte Esterase (Negative) Urine RBC (0-3) /hpf Urine WBC (0-5) /hpf Urine WBC Clumps (None) Ur Squamous Epith Cells (0-5) /hpf Amorphous Sediment (None) /hpf Urine Bacteria (None) /hpf Hyaline Casts (0-3) /lpf Urine Mucus (Occasional) /lpf Micro UA Comment Urine Culture Comments Urine Osmolality (300-1300) mosm/kg Ur Random Creatinine (27-300) mg/dL Ur Random Sodium meq/L Imaging Data Radiologist's impression: ITS Impressions Abdomen/Bladder Ultrasound 04/15/18 00:00 CONCLUSION: 1. Mildly increased cortical echogenicity of the kidneys suggesting medical renal disease. 2. No evidence of hydronephrosis. Chest X-Ray 04/15/18 08:30 CONCLUSION: No acute intrathoracic disease. Stable examination. Discharge Plan Discharge Disposition Patient Disposition: 30 Still Patient Discharge Details Discharge Problem: Uremic encephalopathy, Acute renal failure (ARF), Seizure disorder Physicians Team ED Provider: Jomar Adair Primary Care Provider: Juan R Ruth Attending Provider: Reginaldo Pacheco Other Providers: Cirilo Vargas ; Jude Roque Discharge Interventions Interventions: ED Discharge Assessment Last Done: 04/15/18 15:18 Vital Signs Last Done: 04/15/18 14:49 Status ED Status: Left Department Discharge Information Discharge Date/Time: 04/15/18 15:15
--- NOTE | 2018-04-15 09:08 | XR ---
EXAM DATE: 04/15/2018 9:04 AM EDT AGE/SEX: 53 years / Female INDICATIONS: Syncope, low blood pressure. CLINICAL DATA: This is the patient's initial encounter. Patient reports that signs and symptoms have been present for 1 day and indicates a pain score of 0/10. MEDICAL/SURGICAL HISTORY: . Low blood pressure None. COMPARISON: [facility] – [place], CHEST SINGLE AP, 03/16/2018. . FINDINGS: A single AP view of the chest demonstrates the lungs to be symmetrically aerated without evidence of mass, infiltrate or effusion. The cardiomediastinal contours are unremarkable. Osseous structures a re intact. CONCLUSION: No acute intrathoracic disease. Stable examination. Electronically signed by: Carroll Jara MD 04/15/2018 9:07 AM EDT
[2018-04-15 09:31] LABS: Baso % (Auto) 0.1 % (0.0-2.0); Eos % (Auto) 0.1 % (0.0-4.0); Hematocrit 35.5 % (35.0-46.0); Hemoglobin 12.2 gm/dL (11.6-15.3); Lymph # (Auto) 1.1 th/mm3 (1.0-4.8); Lymph % (Auto) 16.1 % (9.0-44.0); Mean Corpuscular HGB Conc 34.4 % (32.0-36.0); Mean Corpuscular Hemoglobin 31.3 pg (27.0-34.0); Mean Platelet Volume 8.5 fL (7.0-11.0); Mono # (Auto) 0.7 th/mm3 (0.0-0.9); Mono % (Auto) 9.3 % (0.0-8.0); Neut # (Auto) 5.3 th/mm3 (1.8-7.7); Neut % (Auto) 74.4 % (16.0-70.0); Platelet Count 314 th/mm3 (150-450); Red Cell Distribution Width 14.9 % (11.6-17.2); White Blood Count 7.1 th/mm3 (4.0-11.0)
[2018-04-15 09:39] LABS: Activated Partial Thrombo Time 32.7 sec (24.3-30.1); INR 1.1 Ratio; Prothrombin Time 10.8 sec (9.8-11.6)
[2018-04-15 09:52] LABS: Albumin 3.5 g/dL (3.4-5.0); Anion Gap 18 meq/L (5-15); Aspartate Aminotransferase 13 U/L (15-37); Blood Urea Nitrogen 64 mg/dL (7-18); Calcium 9.4 mg/dL (8.5-10.1); Carbon Dioxide 17.2 meq/L (21.0-32.0); Chloride 99 meq/L (98-107); Glomerular Filtration Rate 3 mL/min (>89); Glucose,Random 72 mg/dL (74-106); Lipase 140 U/L (73-393); Potassium 5.1 meq/L (3.5-5.1); Sodium 134 meq/L (136-145)
[2018-04-15 09:57] LABS: Alanine Aminotransferase 15 U/L (10-53); Alkaline Phosphatase 157 U/L (45-117); Creatine Kinase 302 U/L (26-192); Total Protein 7.8 g/dL (6.4-8.2)
[2018-04-15 10:22] LABS: Creatine Kinase MB 18.1 ng/mL (0.5-3.6)
[2018-04-15 11:05] LABS: Amorphous Sediment,Urine Moderate /hpf; Bacteria,Urine Moderate /hpf; Bilirubin,Urine Negative (Negative); Clarity,Urine Cloudy (Clear); Color,Urine Yellow (Yellw/Straw); Glucose,Urine (UA) Negative (Negative); Hyaline Casts,Urine 3 /lpf (0-3); Leukocyte Esterase,Urine Large (Negative); Mucus,Urine Few /lpf (Occasional); Nitrite,Urine Positive (Negative); Specific Gravity,Urine 1.009 (1.002-1.035); Squamous Epithelial Cell,Urine 1 /hpf (0-5)
[2018-04-15] MEDS ORDERED: Acetaminophen 325 MG Tablet PO PRN (11:42)
[2018-04-15] MEDS: Sod Chloride 0.9% Inj 1,000 ML IV.CONT SCH ×2 (13:26→21:51)
--- NOTE | 2018-04-15 14:04 | ECG ---
Date Performed: 04/15/2018 Time Performed: 08:25:09 PTAGE: 53 years EKG: Sinus rhythm NORMAL ECG Compared to prior electrocardiogram, Nonspecific ST and T wave abnormalities no longer pr esent. . DOCTOR: Farhat Young Interpretating Date/Time 04/15/2018 14:03:08
--- NOTE | 2018-04-15 14:07 | P.CONNP ---
<Ruby Fernandez - Last Filed: 04/15/18 13:36> History of Present Illness Service: Nephrology Consult date: 04/15/18 Requesting Physician: Jomar Adair Reason for Consult: Acute kidney injury Primary Care Provider: Juan R Ruth Chief Complaint: Weakness, malaise, and jerking movements. History of Present Illness: Patient is a 53-year-old white female with a history of anxiety, chronic pain syndrome, depression, hypertension and acute on chronic renal failure. She presented to emergency department for confusion, fall, jerking movements, and generalized weakness. Nephrology is consulted for elevated Bun and creatinine with a creatinine level of 14.2 and potassium level of 5.1. She has had a recent admission in March and was followed by Dr. Grissom and at that time creatinine was has high as 9.1, admitted with uremic encephalopathy, sepsis, and UTI. At that time she received 2-3 hemodialysis sessions and at discharge creatinine was at 1.70. Patient reports that she has mild shortness of breath and continues to have poor intake due to ill fitting dentures. Denies any nausea, vomiting or diarrhea. Has noted a decrease in urinary output. Review of Systems Constitutional: Reports fatigue, Reports lack of energy, Reports malaise Ears, Nose, Mouth, and Throat: Reports dental pain Comments: poor fitting dentures Cardiovascular: Denies chest pain, Denies leg swelling Respiratory: Reports shortness of breath, Denies chest congestion Gastrointestinal: Denies abdominal pain, Denies nausea, Denies vomiting Genitourinary: Reports difficulty urinating Musculoskeletal: Reports body aches Neurologic: Reports weakness PMFSH - History History Provided By: Patient, Family Member - Medical History Medical History: Medical History (Last Reviewed 04/15/18 @ 08:41 by Jomar Adair MD) Bipolar 1 disorder Depression Hernia Hypertension Osteoarthritis - Tobacco History Second Hand Smoke Exposure: Yes Tobacco Use In Past 30 Days: Yes Smoking Status: Current every day smoker Tobacco Type: Cigarettes - Alcohol History How Often Do You Have a Drink Containing Alcohol: Monthly or less - Travel History Recent Travel in the [facility] Within the Last 8 Weeks: No Recent Travel Out of the Country Within the Last 8 Weeks: No - Immunization History Tetanus Immunization: <5 Years Hx Influenza Vaccine This Season: No Medications and Allergies Allergies Allergy/AdvReac Type Severity Reaction Status Date / Time meloxicam Allergy Intermediate Weakness Verified 04/15/18 08:39 Sulfa (Sulfonamide Allergy Intermediate Flushing Verified 04/15/18 08:39 Antibiotics) gabapentin Allergy Flushing Verified 04/15/18 08:39 Home Medications Medication Instructions Recorded Confirmed Type alprazolam 1 mg PO TID 04/15/18 04/15/18 History aripiprazole [Abilify] 10 mg PO DAILY 04/15/18 04/15/18 History atorvastatin 40 mg PO DAILY 04/15/18 04/15/18 History metoprolol succinate 25 mg PO DAILY 04/15/18 04/15/18 History morphine 15 mg PO Q8HR PRN 04/15/18 04/15/18 History oxcarbazepine 150 mg PO BID 04/15/18 04/15/18 History pantoprazole 40 mg PO DAILY 04/15/18 04/15/18 History valsartan 320 mg PO DAILY 04/15/18 04/15/18 History venlafaxine 100 mg PO BID 04/15/18 04/15/18 History Active Medications: Active Medications Acetaminophen (Tylenol) 650 mg PO Q4H PRN PRN Reason: Temp > 100.4 Al Hydroxide/Mg Hydroxide (Milk Of Magnbakari Liq) 30 ml PO Q12H PRN PRN Reason: Mild Constipation Ceftriaxone Sodium 1,000 mg/ (Sodium Chloride) 100 mls @ 200 mls/hr IV.SIG Q24H JACK Sodium Chloride (Ns Inj) 1,000 mls @ 100 mls/hr IV.CONT .Q10H JACK Last Admin: 04/15/18 13:26 Dose: 100 mls/hr Ondansetron HCl (Zofran Odt) 4 mg PO Q6H PRN PRN Reason: NAUSEA OR VOMITING Sodium Chloride (Ns Flush) 2 ml IV.FLUSH PRN PRN PRN Reason: FLUSH AFTER USING IV ACCESS Temazepam (Restoril) 15 mg PO HS PRN PRN Reason: INSOMNIA Exam Vital signs: Vital Signs 04/15/18 07:53 04/15/18 09:01 04/15/18 13:15 Temperature 97.9 F Pulse Rate 94 H 76 97 H Respiratory Rate 17 18 18 Blood Pressure 87/53 L 87/55 L 102/72 Pulse Oximetry 96 Intake & Output 04/14/18 04/15/18 04/15/18 18:59 06:59 18:59 Weight 65.771 kg - Constitutional no acute distress - Routine HEENT Exam Head: Present: normocephalic ENT: Present: mucous membranes moist - Routine Neck Exam Absent: JVD - Routine Respiratory Exam Present: decreased breath sounds. Absent: rhonchi, wheezes - Routine Cardiovascular Exam Present: RRR, tachycardia - Routine Abdominal Exam Present: soft, normoactive bowel sounds - Routine Extremities Exam Absent: edema - Routine Skin Exam Present: intact, warm - Routine Neurological Exam Present: alert, oriented X3 Results - Lab Results 04/15/18 08:54 04/15/18 08:54 Most recent lab results Calcium 9.4 mg/dL (8.5-10.1) 04/15/18 08:54 - Image Kidney/bladder ultrasound: pending Assessment and Plan - Assessment (1) Acute renal failure (ARF) Code(s): N17.9 - Acute kidney failure, unspecified Status: Acute Plan: Acute kidney injury with a creatinine level of 14.2 and potassium level of 5.1. She has had a recent admission in March and was followed by Dr. Grissom and at that time creatinine was has high as 9.1, admitted with uremic encephalopathy, sepsis, and UTI. At that time patient received 2-3 hemodialysis and was discharged with a creatinine of 1.70 Has history of hypertension for over 10 years so most likely has chronic kidney disease from hypertension or renovascular disease Acute kidney injury possibly ATN from UTI/dehydration/hypotension Will order renal ultrasound Urine for creatinine, sodium, and osmolarity Strict I+O Continue IVF avoid hypotension Avoid nephrotoxins including NSAIDS, IV contrast, and aminoglycosides. Will monitor urinary output and BMP Dr. Vargas to evaluate for hemodialysis need. (2) Hypertension Code(s): I10 - Essential (primary) hypertension Status: Acute Plan: Blood pressure on lower side receiving IVF (3) Urinary tract infection Code(s): N39.0 - Urinary tract infection, site not specified Status: Acute Plan: Urinalysis is abnormal Continue Rocephin Culture pending <Cirilo Vargas - Last Filed: 04/15/18 15:47> History of Present Illness Primary Care Provider: Juan R Ruth [facility] - Medical History Medical History: Medical History (Last Reviewed 04/15/18 @ 08:41 by Jomar Adair MD) Bipolar 1 disorder Depression Hernia Hypertension Osteoarthritis Medications and Allergies Active Medications: Active Medications Acetaminophen (Tylenol) 650 mg PO Q4H PRN PRN Reason: Temp > 100.4 Al Hydroxide/Mg Hydroxide (Milk Of Magnbakari Liq) 30 ml PO Q12H PRN PRN Reason: Mild Constipation Ceftriaxone Sodium 1,000 mg/ (Sodium Chloride) 100 mls @ 200 mls/hr IV.SIG Q24H JACK Sodium Chloride (Ns Inj) 1,000 mls @ 100 mls/hr IV.CONT .Q10H JACK Last Admin: 04/15/18 13:26 Dose: 100 mls/hr Ondansetron HCl (Zofran Odt) 4 mg PO Q6H PRN PRN Reason: NAUSEA OR VOMITING Sodium Chloride (Ns Flush) 2 ml IV.FLUSH PRN PRN PRN Reason: FLUSH AFTER USING IV ACCESS Temazepam (Restoril) 15 mg PO HS PRN PRN Reason: INSOMNIA Exam Vital signs: Vital Signs 04/15/18 07:53 04/15/18 09:01 04/15/18 13:15 Temperature 97.9 F Pulse Rate 94 H 76 97 H Respiratory Rate 17 18 18 Blood Pressure 87/53 L 87/55 L 102/72 Pulse Oximetry 96 04/15/18 13:43 04/15/18 14:49 Temperature Pulse Rate 99 H 76 Respiratory Rate 20 14 Blood Pressure 115/75 Pulse Oximetry 96 Intake & Output 04/14/18 04/15/18 04/15/18 18:59 06:59 18:59 Weight 65.771 kg Results - Lab Results 04/15/18 08:54 04/15/18 08:54 Most recent lab results Calcium 9.4 mg/dL (8.5-10.1) 04/15/18 08:54 Assessment and Plan - Assessment (1) Acute renal failure (ARF) Code(s): N17.9 - Acute kidney failure, unspecified Status: Acute (2) Hypertension Code(s): I10 - Essential (primary) hypertension Status: Acute (3) Urinary tract infection Code(s): N39.0 - Urinary tract infection, site not specified Status: Acute - Attending Attestation Patient has Chronic kidney disease and develop KILO. Creatinine is elevated, K si normal, patient is dehydrated. Most likely has KILO due to dehydration and possible ATN. Need to continue hydration and antibiotics. Not uremic, and no urgent indication of HD now. If not better, possible HD. <Ruby Fernandez - Last Filed: 04/15/18 13:36> (1) Acute renal failure (ARF) Qualifiers: Acute renal failure type: unspecified Qualified Code(s): N17.9 - Acute kidney failure, unspecified <Cirilo Vargas - Last Filed: 04/15/18 15:47> (1) Acute renal failure (ARF) Qualifiers: Acute renal failure type: unspecified Qualified Code(s): N17.9 - Acute kidney failure, unspecified
--- NOTE | 2018-04-15 14:34 | P.HP ---
History of Present Illness Primary Care Physician: Juan R Ruth Chief Complaint: Weakness, malaise, and jerking movements. History of Present Illness: 53-year-old female with a past medical history of hypertension, depression, and previously admitted in hospital secondary to worsening renal function and did receive hemodialysis at a time however with renal improvement she was discharged home, was brought to the ED today for evaluation of acute onset of altered mental status change, confusion and dizziness. While in the ED, patient was found to have abnormal BUN and creatinine for which nephrology was consulted. Patient states that her boyfriend believes she may have passed out however she denies so .During my exam, she was alert and oriented 3. Abnormal lab include UA for which patient was given Rocephin IV 1 in the ED. She has no complaint of chest pain or shortness of breath. - Diagnosis (1) Uremic encephalopathy (2) Acute renal failure (ARF) (3) Hypertension (4) Urinary tract infection Inpatient Certification: I certify that the inpatient services were ordered in accordance with Medicare regulations governing the order. This includes certification that hospital inpatient services are reasonable and necessary and in the case of services not specified as inpatient-only under 42 CFR 419.22(n), that they are appropriately provided as inpatient services in accordance to with the 2-midnight benchmark under 43 CFR 412.3(e) Estimated Total Length of Stay (Days): 2 Plans for Post Hospital Care: Not yet determined Review of Systems All other systems reviewed negative except as stated in HPI PMFSH - History History Provided By: Patient, Family Member - Medical History Medical History: Medical History (Last Reviewed 04/15/18 @ 08:41 by Jomar Adair MD) Bipolar 1 disorder Depression Hernia Hypertension Osteoarthritis - Tobacco History Second Hand Smoke Exposure: Yes Tobacco Use In Past 30 Days: Yes Smoking Status: Current every day smoker Tobacco Type: Cigarettes - Alcohol History How Often Do You Have a Drink Containing Alcohol: Monthly or less - Travel History Recent Travel in the [place] Within the Last 8 Weeks: No Recent Travel Out of the Country Within the Last 8 Weeks: No - Immunization History Tetanus Immunization: <5 Years Hx Influenza Vaccine This Season: No Medications and Allergies Active Medications: Active Medications Acetaminophen (Tylenol) 650 mg PO Q4H PRN PRN Reason: Temp > 100.4 Al Hydroxide/Mg Hydroxide (Milk Of Magnesia Liq) 30 ml PO Q12H PRN PRN Reason: Mild Constipation Ceftriaxone Sodium 1,000 mg/ (Sodium Chloride) 100 mls @ 200 mls/hr IV.SIG Q24H JACK Sodium Chloride (Ns Inj) 1,000 mls @ 100 mls/hr IV.CONT .Q10H JACK Last Admin: 04/15/18 13:26 Dose: 100 mls/hr Ondansetron HCl (Zofran Odt) 4 mg PO Q6H PRN PRN Reason: NAUSEA OR VOMITING Sodium Chloride (Ns Flush) 2 ml IV.FLUSH PRN PRN PRN Reason: FLUSH AFTER USING IV ACCESS Temazepam (Restoril) 15 mg PO HS PRN PRN Reason: INSOMNIA Allergies Allergy/AdvReac Type Severity Reaction Status Date / Time meloxicam Allergy Intermediate Weakness Verified 04/15/18 08:39 Sulfa (Sulfonamide Allergy Intermediate Flushing Verified 04/15/18 08:39 Antibiotics) gabapentin Allergy Flushing Verified 04/15/18 08:39 Home Medications Medication Instructions Recorded Confirmed Type alprazolam 1 mg PO TID 04/15/18 04/15/18 History aripiprazole [Abilify] 10 mg PO DAILY 04/15/18 04/15/18 History atorvastatin 40 mg PO DAILY 04/15/18 04/15/18 History metoprolol succinate 25 mg PO DAILY 04/15/18 04/15/18 History morphine 15 mg PO Q8HR PRN 04/15/18 04/15/18 History oxcarbazepine 150 mg PO BID 04/15/18 04/15/18 History pantoprazole 40 mg PO DAILY 04/15/18 04/15/18 History valsartan 320 mg PO DAILY 04/15/18 04/15/18 History venlafaxine 100 mg PO BID 04/15/18 04/15/18 History Exam Vital signs: Vital Signs 04/15/18 07:53 04/15/18 09:01 04/15/18 13:15 Temperature 97.9 F Pulse Rate 94 H 76 97 H Respiratory Rate 17 18 18 Blood Pressure 87/53 L 87/55 L 102/72 Pulse Oximetry 96 04/15/18 13:43 Temperature Pulse Rate 99 H Respiratory Rate 20 Blood Pressure Pulse Oximetry Intake & Output 04/14/18 04/15/18 04/15/18 18:59 06:59 18:59 Weight 65.771 kg Narrative: GENERAL: NAD SKIN: Warm and dry. HEAD: Atraumatic. Normocephalic. EYES: Pupils equal and round. No scleral icterus. No injection or drainage. ENT: No nasal bleeding or discharge. Mucous membranes pink and moist. NECK: Trachea midline. No JVD. CARDIOVASCULAR: Regular rate and rhythm. RESPIRATORY: No accessory muscle use. Clear to auscultation. Breath sounds equal bilaterally. GASTROINTESTINAL: Abdomen soft, non-tender, nondistended. Hepatic and splenic margins not palpable. MUSCULOSKELETAL: Extremities without clubbing, cyanosis, or edema. No obvious deformities. NEUROLOGICAL: Awake and alert. No obvious cranial nerve deficits. Motor grossly within normal limits. Five out of 5 muscle strength in the arms and legs. Normal speech. PSYCHIATRIC: Appropriate mood and affect; insight and judgment normal. Results - Labs CBC & Chem 7: 04/15/18 08:54 04/15/18 08:54 Labs: Laboratory Results - last 24 hr 04/15/18 04/15/18 04/15/18 08:54 08:54 08:54 WBC 7.1 RBC 3.90 L Hgb 12.2 Hct 35.5 MCV 91.0 MCH 31.3 MCHC 34.4 RDW 14.9 Plt Count 314 MPV 8.5 Neut % (Auto) 74.4 H Lymph % (Auto) 16.1 Ray % (Auto) 9.3 H Eos % (Auto) 0.1 Baso % (Auto) 0.1 Neut # (Auto) 5.3 Lymph # (Auto) 1.1 Ray # (Auto) 0.7 Eos # (Auto) 0.0 Baso # (Auto) 0.0 WBC Differential . Differential Comment Auto diff final PT 10.8 INR 1.1 APTT 32.7 H Sodium 134 L Potassium 5.1 Chloride 99 Carbon Dioxide 17.2 L Anion Gap 18 H BUN 64 H Creatinine 14.12 H* Estimated GFR 3 L Random Glucose 72 L Lactic Acid Calcium 9.4 Total Bilirubin 0.4 AST 13 L ALT 15 Alkaline Phosphatase 157 H Total Creatine Kinase 302 H CK-MB (CK-2) 18.1 H CK-MB (CK-2) % 6.0 H* Troponin I Less than 0.02 L Total Protein 7.8 Albumin 3.5 Lipase 140 Urine Color Urine Clarity Urine pH Ur Specific [place] Urine Protein Urine Glucose (UA) Urine Ketones Urine Occult Blood Urine Nitrate Urine Bilirubin Urine Urobilinogen Ur Leukocyte Esterase Urine RBC Urine WBC Urine WBC Clumps Ur Squamous Epith Cells Amorphous Sediment Urine Bacteria Hyaline Casts Urine Mucus Micro UA Comment Urine Culture Comments 04/15/18 04/15/18 08:54 10:20 WBC RBC Hgb Hct MCV MCH MCHC RDW Plt Count MPV Neut % (Auto) Lymph % (Auto) Ray % (Auto) Eos % (Auto) Baso % (Auto) Neut # (Auto) Lymph # (Auto) Ray # (Auto) Eos # (Auto) Baso # (Auto) WBC Differential Differential Comment PT INR APTT Sodium Potassium Chloride Carbon Dioxide Anion Gap BUN Creatinine Estimated GFR Random Glucose Lactic Acid 0.5 Calcium Total Bilirubin AST ALT Alkaline Phosphatase Total Creatine Kinase CK-MB (CK-2) CK-MB (CK-2) % Troponin I Total Protein Albumin Lipase Urine Color Yellow Urine Clarity Cloudy H Urine pH 6.0 Ur Specific [place] 1.009 Urine Protein 30 H Urine Glucose (UA) Negative Urine Ketones Negative Urine Occult Blood Moderate H Urine Nitrate Positive H Urine Bilirubin Negative Urine Urobilinogen Less than 2 Ur Leukocyte Esterase Large H Urine RBC 7 H Urine WBC 154 H Urine WBC Clumps Many H Ur Squamous Epith Cells 1 Amorphous Sediment Moderate H Urine Bacteria Moderate H Hyaline Casts 3 Urine Mucus Few H Micro UA Comment Cath-culture ind Urine Culture Comments Cath-cult indicated - Imaging Impressions Chest X-Ray 04/15/18 08:30 CONCLUSION: No acute intrathoracic disease. Stable examination. Caprini VTE Risk Assessment Caprini VTE Risk Assessment: No/Low Risk (score <= 1) Caprini Risk Assessment Model: Point Value = 1 Point Value = 2 Point Value = 3 Point Value = 5 Age 41-60 Minor surgery BMI > 25 kg/m2 Swollen legs Varicose veins or History of unexplained or recurrent spontaneous Oral contraceptives or hormone replacement Sepsis (< 1 month) Serious lung disease, including pneumonia (< 1 month) Abnormal pulmonary function Acute myocardial infarction Congestive heart failure (< 1 month) History of inflammatory bowel disease Medical patient at bed rest Age 61-74 Arthroscopic surgery Major open surgery (> 45 min) Laparoscopic surgery (> 45 min) Malignancy Confined to bed (> 72 hours) Immobilizing plaster cast Central venous access Age >= 75 History of VTE Family history of VTE Factor V Leiden Prothrombin [id number] Lupus anticoagulant Anticardiolipin antibodies Elevated serum homocysteine Heparin-induced thrombocytopenia Other congenital or acquired thrombophilia Stroke (< 1 month) Elective arthroplasty Hip, pelvis, or leg fracture Acute spinal cord injury (< 1 month) Prophylaxis Regimen: Total Risk Factor Score Risk Level Prophylaxis Regimen 0-1 Low Early ambulation 2 Moderate Order ONE of the following: *Sequential Compression Device (SCD) *Heparin 5000 units SQ BID 3-4 Higher Order ONE of the following medications: *Heparin 5000 units SQ TID *Enoxaparin/Lovenox 40 mg SQ daily (WT < 150 kg, CrCl > 30 mL/min) *Enoxaparin/Lovenox 30 mg SQ daily (WT < 150 kg, CrCl > 10-29 mL/min) *Enoxaparin/Lovenox 30 mg SQ BID (WT < 150 kg, CrCl > 30 mL/min) AND/OR *Sequential Compression Device (SCD) 5 or more Highest Order ONE of the following medications: *Heparin 5000 units SQ TID (Preferred with Epidurals) *Enoxaparin/Lovenox 40 mg SQ daily (WT < 150 kg, CrCl > 30 mL/min) *Enoxaparin/Lovenox 30 mg SQ daily (WT < 150 kg, CrCl > 10-29 mL/min) *Enoxaparin/Lovenox 30 mg SQ BID (WT < 150 kg, CrCl > 30 mL/min) AND *Sequential Compression Device (SCD) Assessment and Plan - Assessment (1) Uremic encephalopathy Code(s): G93.41 - Metabolic encephalopathy; N19 - Unspecified kidney failure Status: Acute (2) Acute renal failure (ARF) Code(s): N17.9 - Acute kidney failure, unspecified Status: Acute (3) Hypertension Code(s): I10 - Essential (primary) hypertension Status: Acute (4) Urinary tract infection Code(s): N39.0 - Urinary tract infection, site not specified Status: Acute - Plan 53-year-old with Uremic encephalopathy versus metabolic encephalopathy Acute renal failure Chest x-ray noted and reviewed by me without any cardiopulmonary disease Nephrology has been consulted Continue aggressive IV fluid hydration Renal ultrasound pending Avoid all nephrotoxic Monitor BUN and creatinine Abnormal UA Currently on Rocephin pending urine culture Tobacco abuse Tobacco counseling cessation provided Continue nicotine patch Hypertension Currently normotensive Depression Resume outpatient medications Hyperlipemia Resume Statin DVT prophylaxis: Bilateral SCDs (2) Acute renal failure (ARF) Qualifiers: Acute renal failure type: unspecified Qualified Code(s): N17.9 - Acute kidney failure, unspecified
[2018-04-15 16:01] LABS: Creatinine,Urine Random 122 mg/dL (27-300)
[2018-04-15] MEDS ORDERED: VENLAFAXINE 100 MG PO SCH (21:00)
[2018-04-15] MEDS: Temazepam 15 MG Capsule PO PRN (21:52)
--- NOTE | 2018-04-15 23:52 | US ---
EXAM DATE: 04/15/2018 10:59 PM EDT AGE/SEX: 53 years / Female INDICATIONS: Increased lab values. CLINICAL DATA: This is the patient's initial encounter. Patient reports that signs and symptoms have been present for 1 day and indicates a pain score of 0/10. MEDICAL/SURGICAL HISTORY: Hypertension. Bipolar 1 disorder. Depression. Hernia. Hypertension. O steoarthritis. . COMPARISON: [facility] [place] KIDNEY/RENAL/BLADDER, 03/17/2018. . MEASUREMENTS: Right Kidney:__10.8 x 5.0 x 5.7 cm Left Kidney:__11.7 x 5.1 x 5.5 cm FINDINGS: Right Kidney: Mildly increased cortical echogenicity.. No mass or hydronephrosis. Left Kidney: Mildly increased cortical echogenicity. No mass or hydronephrosis. Bladder: Within normal limits given the degree of distension. Other: None. CONCLUSION: 1. Mildly increased cortical echogenicity of the kidneys suggesting medical renal disease. 2. No evidence of hydronephrosis. Electronically signed by: Rod Aflred MD 04/15/2018 11:50 PM EDT
[2018-04-16 07:26] LABS: Baso % (Auto) 0.2 % (0.0-2.0); Eos % (Auto) 0.1 % (0.0-4.0); Hematocrit 31.4 % (35.0-46.0); Hemoglobin 10.5 gm/dL (11.6-15.3); Lymph # (Auto) 1.2 th/mm3 (1.0-4.8); Lymph % (Auto) 15.6 % (9.0-44.0); Mean Corpuscular HGB Conc 33.6 % (32.0-36.0); Mean Corpuscular Hemoglobin 30.6 pg (27.0-34.0); Mean Corpuscular Volume 91.3 fL (80.0-100.0); Mean Platelet Volume 8.2 fL (7.0-11.0); Mono # (Auto) 0.6 th/mm3 (0.0-0.9); Mono % (Auto) 8.6 % (0.0-8.0); Neut # (Auto) 5.6 th/mm3 (1.8-7.7); Neut % (Auto) 75.5 % (16.0-70.0); Platelet Count 280 th/mm3 (150-450); Red Blood Count 3.44 mil/mm3 (4.00-5.30); Red Cell Distribution Width 14.9 % (11.6-17.2); White Blood Count 7.4 th/mm3 (4.0-11.0)
[2018-04-16 07:51] LABS: Alanine Aminotransferase 9 U/L (10-53); Albumin 2.7 g/dL (3.4-5.0); Alkaline Phosphatase 123 U/L (45-117); Anion Gap 19 meq/L (5-15); Aspartate Aminotransferase 15 U/L (15-37); Blood Urea Nitrogen 58 mg/dL (7-18); Calcium 8.2 mg/dL (8.5-10.1); Carbon Dioxide 10.6 meq/L (21.0-32.0); Chloride 110 meq/L (98-107); Glomerular Filtration Rate 3 mL/min (>89); Potassium 4.7 meq/L (3.5-5.1); Sodium 140 meq/L (136-145); Total Protein 6.2 g/dL (6.4-8.2)
[2018-04-16 07:57] LABS: Glucose,Random 31 mg/dL (74-106)
[2018-04-16] MEDS: Sod Chloride 0.9% Inj 1,000 ML IV.CONT SCH ×2 (09:27→20:52)
[2018-04-16] MEDS: ARIPiprazole 10 MG Tablet PO SCH (09:32)
[2018-04-16] MEDS ORDERED: Dextrose 50% in Water 50 ML Vial IV.PUSH PRN (12:47)
--- NOTE | 2018-04-16 12:47 | P.PN ---
Subjective Interval history: Follow-up uremic encephalopathy/chronic kidney disease stage IV/episode of hypoglycemia however asymptomatic April 16, 2018-patient seen and examined, alert and oriented x3, blood glucose low however patient is asymptomatic. Physical Exam Vital signs: Vital Signs 04/15/18 13:15 04/15/18 13:43 04/15/18 14:49 Temperature Pulse Rate 97 H 99 H 76 Respiratory Rate 18 20 14 Blood Pressure 102/72 115/75 Pulse Oximetry 96 96 04/15/18 15:15 04/15/18 20:00 04/15/18 22:10 Temperature 98.2 F Pulse Rate 105 H 102 H Respiratory Rate 20 Blood Pressure 121/76 Pulse Oximetry 96 04/16/18 00:00 04/16/18 01:20 04/16/18 04:00 Temperature 98.4 F 99.3 F 97.8 F Pulse Rate 90 Respiratory Rate 18 20 Blood Pressure 99/56 L 101/57 L 110/60 Pulse Oximetry 95 95 04/16/18 04:44 Temperature Pulse Rate 100 H Respiratory Rate Blood Pressure Pulse Oximetry Intake & Output 04/15/18 04/16/18 04/16/18 18:59 06:59 18:59 Intake Total 600 / 600 900 / 900 1000 / 1000 Output Total 200 / 200 Balance 600 / 600 700 / 700 1000 / 1000 Weight 65.771 kg 69.5 kg Intake: IV 900 / 900 1000 / 1000 NS Inj 1,000 ML @ 100 mls/hr IV 900 / 900 1000 / 1000 .CONT .Q10H JACK Rx#:[id number] Oral 600 / 600 Output: Urine 200 / 200 Other: Weight On Admission 65.771 kg Narrative: GENERAL: NAD SKIN: Warm and dry. HEAD: Normocephalic. EYES: No scleral icterus. No injection or drainage. NECK: Supple, trachea midline. No JVD or lymphadenopathy. CARDIOVASCULAR: Regular rate and rhythm without murmurs, gallops, or rubs. RESPIRATORY: Breath sounds equal bilaterally. No accessory muscle use. GASTROINTESTINAL: Abdomen soft, non-tender, nondistended. MUSCULOSKELETAL: No cyanosis, or edema. BACK: Nontender without obvious deformity. No CVA tenderness. Results - Labs CBC & Chem 7: 04/16/18 06:08 04/16/18 06:08 Laboratory Results - last 24 hr 04/15/18 04/15/18 04/15/18 10:20 10:20 10:20 WBC RBC Hgb Hct MCV MCH MCHC RDW Plt Count MPV Neut % (Auto) Lymph % (Auto) [place] % (Auto) Eos % (Auto) Baso % (Auto) Neut # (Auto) Lymph # (Auto) [place] # (Auto) Eos # (Auto) Baso # (Auto) WBC Differential Differential Comment Sodium Potassium Chloride Carbon Dioxide Anion Gap BUN Creatinine Estimated GFR POC Glucose Random Glucose Calcium Total Bilirubin AST ALT Alkaline Phosphatase Total Protein Albumin Urine Color Yellow Urine Clarity Cloudy H Urine pH 6.0 Ur Specific [place] 1.009 Urine Protein 30 H Urine Glucose (UA) Negative Urine Ketones Negative Urine Occult Blood Moderate H Urine Nitrate Positive H Urine Bilirubin Negative Urine Urobilinogen Less than 2 Ur Leukocyte Esterase Large H Urine RBC 7 H Urine WBC 154 H Urine WBC Clumps Many H Ur Squamous Epith Cells 1 Amorphous Sediment Moderate H Urine Bacteria Moderate H Hyaline Casts 3 Urine Mucus Few H Micro UA Comment Cath-culture ind Urine Culture Comments Cath-cult indicated Urine Osmolality 239 L Ur Random Creatinine 122 Ur Random Sodium 62 04/16/18 04/16/18 04/16/18 06:08 06:08 09:23 WBC 7.4 RBC 3.44 L Hgb 10.5 L Hct 31.4 L MCV 91.3 MCH 30.6 MCHC 33.6 RDW 14.9 Plt Count 280 MPV 8.2 Neut % (Auto) 75.5 H Lymph % (Auto) 15.6 [place] % (Auto) 8.6 H Eos % (Auto) 0.1 Baso % (Auto) 0.2 Neut # (Auto) 5.6 Lymph # (Auto) 1.2 [place] # (Auto) 0.6 Eos # (Auto) 0.0 Baso # (Auto) 0.0 WBC Differential . Differential Comment Auto diff final Sodium 140 Potassium 4.7 Chloride 110 H D Carbon Dioxide 10.6 L Anion Gap 19 H BUN 58 H Creatinine 12.98 H* D Estimated GFR 3 L POC Glucose 53 L Random Glucose 31 L* Calcium 8.2 L D Total Bilirubin 0.3 AST 15 ALT 9 L Alkaline Phosphatase 123 H Total Protein 6.2 L D Albumin 2.7 L D Urine Color Urine Clarity Urine pH Ur Specific [place] Urine Protein Urine Glucose (UA) Urine Ketones Urine Occult Blood Urine Nitrate Urine Bilirubin Urine Urobilinogen Ur Leukocyte Esterase Urine RBC Urine WBC Urine WBC Clumps Ur Squamous Epith Cells Amorphous Sediment Urine Bacteria Hyaline Casts Urine Mucus Micro UA Comment Urine Culture Comments Urine Osmolality Ur Random Creatinine Ur Random Sodium 04/16/18 11:53 WBC RBC Hgb Hct MCV MCH MCHC RDW Plt Count MPV Neut % (Auto) Lymph % (Auto) [place] % (Auto) Eos % (Auto) Baso % (Auto) Neut # (Auto) Lymph # (Auto) [place] # (Auto) Eos # (Auto) Baso # (Auto) WBC Differential Differential Comment Sodium Potassium Chloride Carbon Dioxide Anion Gap BUN Creatinine Estimated GFR POC Glucose 121 H Random Glucose Calcium Total Bilirubin AST ALT Alkaline Phosphatase Total Protein Albumin Urine Color Urine Clarity Urine pH Ur Specific [place] Urine Protein Urine Glucose (UA) Urine Ketones Urine Occult Blood Urine Nitrate Urine Bilirubin Urine Urobilinogen Ur Leukocyte Esterase Urine RBC Urine WBC Urine WBC Clumps Ur Squamous Epith Cells Amorphous Sediment Urine Bacteria Hyaline Casts Urine Mucus Micro UA Comment Urine Culture Comments Urine Osmolality Ur Random Creatinine Ur Random Sodium Microbiology 04/15/18 10:20 Clean Catch Urine Urine Culture - Preliminary gram negative rods 04/15/18 08:50 Blood - Peripheral Aerobic Blood Culture - Preliminary No growth in 1 day 04/15/18 08:50 Blood - Peripheral Anaerobic Blood Culture - Preliminary No growth in 1 day 04/15/18 08:55 Blood - Peripheral Aerobic Blood Culture - Preliminary No growth in 1 day 04/15/18 08:55 Blood - Peripheral Anaerobic Blood Culture - Preliminary No growth in 1 day - Imaging Impressions Abdomen/Bladder Ultrasound 04/15/18 00:00 CONCLUSION: 1. Mildly increased cortical echogenicity of the kidneys suggesting medical renal disease. 2. No evidence of hydronephrosis. Assessment and Plan - Assessment (1) Uremic encephalopathy Code(s): G93.41 - Metabolic encephalopathy; N19 - Unspecified kidney failure Status: Resolved (2) Acute renal failure (ARF) Code(s): N17.9 - Acute kidney failure, unspecified Status: Acute (3) Hypertension Code(s): I10 - Essential (primary) hypertension Status: Acute (4) Urinary tract infection Code(s): N39.0 - Urinary tract infection, site not specified Status: Acute (5) Metabolic acidosis Code(s): E87.2 - Acidosis Status: Acute (6) Hypoglycemia, unspecified Code(s): E16.2 - Hypoglycemia, unspecified Status: Acute - Plan 53-year-old with Uremic encephalopathy versus metabolic encephalopathy-resolved Acute renal failure Metabolic acidosis Chest x-ray without any cardiopulmonary disease Appreciate input from nephrology has been consulted Continue aggressive IV fluid hydration, will need sodium bicarb infusion Renal ultrasound with finding of 1. Mildly increased cortical echogenicity of the kidneys suggesting medical renal disease. 2. No evidence of hydronephrosis. Avoid all nephrotoxic Monitor BUN and creatinine Hypoglycemia associated with chronic kidney disease/end-stage renal disease Start treatment per hypoglycemia protocol Urinary tract infection Currently on Rocephin pending urine culture Tobacco abuse Tobacco counseling cessation provided Continue nicotine patch Hypertension Currently normotensive Depression Continue outpatient medications Hyperlipemia Continue statin DVT prophylaxis: Bilateral SCDs (2) Acute renal failure (ARF) Qualifiers: Acute renal failure type: unspecified Qualified Code(s): N17.9 - Acute kidney failure, unspecified
[2018-04-16] MEDS: Temazepam 15 MG Capsule PO PRN (17:14)
--- NOTE | 2018-04-16 22:47 | P.PNNP ---
Subjective Interval history: no acute issues Physical Exam Vital signs: Vital Signs 04/16/18 00:00 04/16/18 01:20 04/16/18 04:00 Temperature 98.4 F 99.3 F 97.8 F Pulse Rate 90 Respiratory Rate 18 20 Blood Pressure 99/56 L 101/57 L 110/60 Pulse Oximetry 95 95 04/16/18 04:44 04/16/18 08:00 04/16/18 08:02 Temperature 98.1 F Pulse Rate 100 H 98 H 98 H Respiratory Rate 16 Blood Pressure 97/70 L Pulse Oximetry 93 L 04/16/18 12:00 04/16/18 12:18 04/16/18 16:00 Temperature Pulse Rate 89 94 H 87 Respiratory Rate 16 16 Blood Pressure 105/66 111/72 Pulse Oximetry 95 96 04/16/18 20:00 Temperature 97.8 F Pulse Rate 95 H Respiratory Rate 19 Blood Pressure 109/84 Pulse Oximetry 97 Intake & Output 04/16/18 04/16/18 04/17/18 06:59 18:59 06:59 Intake Total 900 / 900 1480 / 1480 1000 / 1000 Output Total 200 / 200 1800 / 1800 Balance 700 / 700 -320 / -320 1000 / 1000 Weight 69.5 kg Intake: IV 900 / 900 1100 / 1100 1000 / 1000 NS Inj 1,000 ML @ 100 mls/hr IV 900 / 900 1000 / 1000 1000 / 1000 .CONT .Q10H JACK Rx#:[id number] Rocephin Inj 1,000 MG In NS Inj 100 / 100 100 ML @ 200 mls/hr IV.SIG Q24H JACK Rx#:[id number] Oral 380 / 380 Output: Urine 200 / 200 1800 / 1800 Other: # Bowel Movements 1 - Constitutional no acute distress - Routine HEENT Exam Head: Present: normocephalic ENT: Present: mucous membranes moist - Routine Neck Exam Present: supple - Routine Cardiovascular Exam Present: RRR - Routine Abdominal Exam Present: soft - Routine Skin Exam Present: intact - Routine Neurological Exam Present: alert - Detailed Neurological Exam: Coma Scale Eye Opening: Spontaneous - Routine Psychiatric Exam Present: normal affect Assessment and Plan - Assessment (1) Acute renal failure (ARF) Code(s): N17.9 - Acute kidney failure, unspecified Status: Acute Qualifiers: Acute renal failure type: unspecified Qualified Code(s): N17.9 - Acute kidney failure, unspecified Plan: Acute kidney injury with a creatinine level of 14.2 and potassium level of 5.1 at time of consult She has had a recent admission in March and was followed by Dr. Grissom and at that time creatinine was has high as 9.1, admitted with uremic encephalopathy, sepsis, and UTI. At that time patient received 2-3 hemodialysis and was discharged with a creatinine of 1.70 Has history of hypertension for over 10 years so most likely has chronic kidney disease from hypertension or renovascular disease Acute kidney injury possibly ATN from UTI/dehydration/hypotension Renal ultrasound with findings suggestive of CKD Continue IVFs avoid hypotension. will adjust IVFs to D5W + 150 meq NaHCO3 at 100cc/hour Creatinine 14 -> 13 Avoid nephrotoxins including NSAIDS, IV contrast, and aminoglycosides. Will monitor urinary output and BMP Improved UOP with 1.8L UOP - continue to monitor May need HD if little improvement, however increased UOP is encouraging. (2) Hypertension Code(s): I10 - Essential (primary) hypertension Status: Acute Plan: Blood pressure on lower side receiving IVF (3) Urinary tract infection Code(s): N39.0 - Urinary tract infection, site not specified Status: Acute Plan: Urinalysis is abnormal Continue Rocephin GNR in urine - follow cultures
[2018-04-16] MEDS: Sodium Bicarbonate 8.4% Inj 150 MEQ in Dextrose 5% in Water Inj 850 ML IV.CONT SCH ×2 (23:33)
[2018-04-17] MEDS: Temazepam 15 MG Capsule PO PRN ×3 (00:06→21:22)
[2018-04-17 02:45] LABS: Hematocrit 29.5 % (35.0-46.0); Hemoglobin 10.1 gm/dL (11.6-15.3); Mean Corpuscular HGB Conc 34.2 % (32.0-36.0); Mean Corpuscular Hemoglobin 30.6 pg (27.0-34.0); Mean Corpuscular Volume 89.4 fL (80.0-100.0); Platelet Count 266 th/mm3 (150-450); Red Cell Distribution Width 14.9 % (11.6-17.2); White Blood Count 5.2 th/mm3 (4.0-11.0)
[2018-04-17 03:01] LABS: Alanine Aminotransferase 10 U/L (10-53); Albumin 2.6 g/dL (3.4-5.0); Alkaline Phosphatase 112 U/L (45-117); Anion Gap 14 meq/L (5-15); Aspartate Aminotransferase 10 U/L (15-37); Blood Urea Nitrogen 53 mg/dL (7-18); Calcium 8.1 mg/dL (8.5-10.1); Carbon Dioxide 17.5 meq/L (21.0-32.0); Chloride 110 meq/L (98-107); Glomerular Filtration Rate 3 mL/min (>89); Glucose,Random 101 mg/dL (74-106); Phosphorus 8.1 mg/dL (2.5-4.9); Potassium 4.4 meq/L (3.5-5.1); Sodium 141 meq/L (136-145)
[2018-04-17 07:50] LABS: Baso % (Auto) 0.1 % (0.0-2.0); Eos % (Auto) 0.4 % (0.0-4.0); Hematocrit 29.9 % (35.0-46.0); Hemoglobin 10.4 gm/dL (11.6-15.3); Lymph % (Auto) 23.8 % (9.0-44.0); Mean Corpuscular HGB Conc 34.8 % (32.0-36.0); Mean Corpuscular Hemoglobin 30.9 pg (27.0-34.0); Mean Corpuscular Volume 88.8 fL (80.0-100.0); Mean Platelet Volume 7.7 fL (7.0-11.0); Mono # (Auto) 0.4 th/mm3 (0.0-0.9); Mono % (Auto) 9.5 % (0.0-8.0); Neut # (Auto) 2.9 th/mm3 (1.8-7.7); Neut % (Auto) 66.2 % (16.0-70.0); Platelet Count 278 th/mm3 (150-450); Red Blood Count 3.37 mil/mm3 (4.00-5.30); Red Cell Distribution Width 15.1 % (11.6-17.2); White Blood Count 4.4 th/mm3 (4.0-11.0)
[2018-04-17 08:11] LABS: Calcium 8.1 mg/dL (8.5-10.1); Carbon Dioxide 20.4 meq/L (21.0-32.0); Potassium 3.8 meq/L (3.5-5.1)
[2018-04-17] MEDS: ARIPiprazole 10 MG Tablet PO SCH (08:53)
[2018-04-17] MEDS: Sodium Bicarbonate 8.4% Inj 150 MEQ in Dextrose 5% in Water Inj 850 ML IV.CONT SCH ×4 (10:35→21:25)
--- NOTE | 2018-04-17 11:41 | P.PN ---
Subjective Interval history: Follow-up uremic encephalopathy/chronic kidney disease stage IV/episode of hypoglycemia however asymptomatic April 16, 2018-patient seen and examined, alert and oriented x3, blood glucose low however patient is asymptomatic. April 17, 2018-patient seen and examined slow improvement of renal indices. Afebrile. Patient states she is having good urine output Physical Exam Vital signs: Vital Signs 04/16/18 12:00 04/16/18 12:18 04/16/18 16:00 Temperature Pulse Rate 89 94 H 87 Respiratory Rate 16 16 Blood Pressure 105/66 111/72 Pulse Oximetry 95 96 04/16/18 20:00 04/16/18 20:40 04/17/18 00:00 Temperature 97.8 F 98 F Pulse Rate 95 H 96 H 90 Respiratory Rate 19 16 Blood Pressure 109/84 120/72 Pulse Oximetry 97 96 04/17/18 04:00 04/17/18 08:00 Temperature 97.7 F 97.1 F L Pulse Rate 87 92 H Respiratory Rate 16 18 Blood Pressure 118/82 126/83 Pulse Oximetry 95 99 Intake & Output 04/16/18 04/17/18 04/17/18 18:59 06:59 18:59 Intake Total 1480 / 1480 1960 / 1960 1100 / 1100 Output Total 1800 / 1800 950 / 950 Balance -320 / -320 1010 / 1010 1100 / 1100 Weight 69.9 kg Intake: IV 1100 / 1100 1000 / 1000 1100 / 1100 NS Inj 1,000 ML @ 100 mls/hr IV 1000 / 1000 1000 / 1000 .CONT .Q10H JACK Rx#:[id number] Sodium Bicarbonate 8.4% Inj 150 1000 / 1000 MEQ In D5W Inj 850 ML @ 100 mls/hr IV.CONT .Q10H JACK Rx#: [id number] Rocephin Inj 1,000 MG In NS Inj 100 / 100 100 / 100 100 ML @ 200 mls/hr IV.SIG Q24H JACK Rx#:[id number] Oral 380 / 380 960 / 960 Output: Urine 1800 / 1800 950 / 950 Other: # Bowel Movements 1 1 Narrative: GENERAL: NAD SKIN: Warm and dry. HEAD: Normocephalic. EYES: No scleral icterus. No injection or drainage. NECK: Supple, trachea midline. No JVD or lymphadenopathy. CARDIOVASCULAR: Regular rate and rhythm without murmurs, gallops, or rubs. RESPIRATORY: Breath sounds equal bilaterally. No accessory muscle use. GASTROINTESTINAL: Abdomen soft, non-tender, nondistended. MUSCULOSKELETAL: No cyanosis, or edema. BACK: Nontender without obvious deformity. No CVA tenderness. Results - Labs CBC & Chem 7: 04/17/18 06:55 04/17/18 06:55 Laboratory Results - last 24 hr 04/16/18 04/17/18 04/17/18 11:53 01:45 01:45 WBC 5.2 RBC 3.30 L Hgb 10.1 L Hct 29.5 L MCV 89.4 MCH 30.6 MCHC 34.2 RDW 14.9 Plt Count 266 MPV 8.0 Neut % (Auto) Lymph % (Auto) [place] % (Auto) Eos % (Auto) Baso % (Auto) Neut # (Auto) Lymph # (Auto) [place] # (Auto) Eos # (Auto) Baso # (Auto) WBC Differential Differential Comment Sodium 141 Potassium 4.4 Chloride 110 H Carbon Dioxide 17.5 L Anion Gap 14 BUN 53 H Creatinine 11.37 H* D Estimated GFR 3 L POC Glucose 121 H Random Glucose 101 Calcium 8.1 L Phosphorus 8.1 H Magnesium 2.0 Total Bilirubin 0.2 AST 10 L ALT 10 Alkaline Phosphatase 112 Total Protein 6.0 L Albumin 2.6 L 04/17/18 04/17/18 06:55 06:55 WBC 4.4 RBC 3.37 L Hgb 10.4 L Hct 29.9 L MCV 88.8 MCH 30.9 MCHC 34.8 RDW 15.1 Plt Count 278 MPV 7.7 Neut % (Auto) 66.2 Lymph % (Auto) 23.8 [place] % (Auto) 9.5 H Eos % (Auto) 0.4 Baso % (Auto) 0.1 Neut # (Auto) 2.9 Lymph # (Auto) 1.0 [place] # (Auto) 0.4 Eos # (Auto) 0.0 Baso # (Auto) 0.0 WBC Differential . Differential Comment Auto diff final Sodium 141 Potassium 3.8 Chloride 107 Carbon Dioxide 20.4 L Anion Gap 14 BUN 51 H Creatinine 10.88 H* Estimated GFR 4 L POC Glucose Random Glucose 98 Calcium 8.1 L Phosphorus Magnesium Total Bilirubin AST ALT Alkaline Phosphatase Total Protein Albumin Microbiology 04/15/18 10:20 Clean Catch Urine Urine Culture - Final Klebsiella pneumoniae 04/15/18 08:50 Blood - Peripheral Aerobic Blood Culture - Preliminary No growth in 2 days 04/15/18 08:50 Blood - Peripheral Anaerobic Blood Culture - Preliminary No growth in 2 days 04/15/18 08:55 Blood - Peripheral Aerobic Blood Culture - Preliminary No growth in 2 days 04/15/18 08:55 Blood - Peripheral Anaerobic Blood Culture - Preliminary No growth in 2 days Assessment and Plan - Assessment (1) Uremic encephalopathy Code(s): G93.41 - Metabolic encephalopathy; N19 - Unspecified kidney failure Status: Resolved (2) Acute renal failure (ARF) Code(s): N17.9 - Acute kidney failure, unspecified Status: Acute (3) Hypertension Code(s): I10 - Essential (primary) hypertension Status: Acute (4) Urinary tract infection Code(s): N39.0 - Urinary tract infection, site not specified Status: Acute (5) Metabolic acidosis Code(s): E87.2 - Acidosis Status: Acute (6) Hypoglycemia, unspecified Code(s): E16.2 - Hypoglycemia, unspecified Status: Acute - Plan 53-year-old with Uremic encephalopathy versus metabolic encephalopathy-resolved Acute renal failure Metabolic acidosis Chest x-ray without any cardiopulmonary disease Appreciate input from nephrology has been consulted Continue aggressive IV fluid hydration with D5W with NAhCO3 Renal ultrasound with finding of 1. Mildly increased cortical echogenicity of the kidneys suggesting medical renal disease. 2. No evidence of hydronephrosis. Avoid all nephrotoxic Monitor BUN and creatinine Due to slow improvement of renal function, patient may need HD Hypoglycemia associated with chronic kidney disease/end-stage renal disease Improved and continue with treatment per hypoglycemia protocol Urinary tract infection-Klebsiella pneumonia d/c Rocephin and start Ceftin 500 mg p.o. twice daily 5 days Tobacco abuse Tobacco counseling cessation provided Continue nicotine patch Hypertension Currently normotensive Depression Continue outpatient medications Hyperlipemia Continue statin DVT prophylaxis: Bilateral SCDs (2) Acute renal failure (ARF) Qualifiers: Acute renal failure type: unspecified Qualified Code(s): N17.9 - Acute kidney failure, unspecified
--- NOTE | 2018-04-17 17:40 | P.PNNP ---
Subjective Interval history: no acute complaints Physical Exam Vital signs: Vital Signs 04/16/18 20:00 04/16/18 20:40 04/17/18 00:00 Temperature 97.8 F 98 F Pulse Rate 95 H 96 H 90 Respiratory Rate 19 16 Blood Pressure 109/84 120/72 Pulse Oximetry 97 96 04/17/18 04:00 04/17/18 07:43 04/17/18 08:00 Temperature 97.7 F 97.1 F L Pulse Rate 87 90 92 H Respiratory Rate 16 18 Blood Pressure 118/82 126/83 Pulse Oximetry 95 99 04/17/18 12:00 Temperature 98.0 F Pulse Rate 82 Respiratory Rate 18 Blood Pressure 112/77 Pulse Oximetry 95 Intake & Output 04/16/18 04/17/18 04/17/18 18:59 06:59 18:59 Intake Total 1480 / 1480 1960 / 1960 1100 / 1100 Output Total 1800 / 1800 950 / 950 Balance -320 / -320 1010 / 1010 1100 / 1100 Weight 69.9 kg Intake: IV 1100 / 1100 1000 / 1000 1100 / 1100 NS Inj 1,000 ML @ 100 mls/hr IV 1000 / 1000 1000 / 1000 .CONT .Q10H JACK Rx#:[id number] Sodium Bicarbonate 8.4% Inj 150 1000 / 1000 MEQ In D5W Inj 850 ML @ 100 mls/hr IV.CONT .Q10H JACK Rx#: [id number] Rocephin Inj 1,000 MG In NS Inj 100 / 100 100 / 100 100 ML @ 200 mls/hr IV.SIG Q24H JACK Rx#:[id number] Oral 380 / 380 960 / 960 Output: Urine 1800 / 1800 950 / 950 Other: # Bowel Movements 1 1 - Constitutional no acute distress - Routine HEENT Exam Head: Present: normocephalic Eye: Present: EOMI ENT: Present: mucous membranes moist - Routine Neck Exam Present: supple - Routine Respiratory Exam Present: diminished air movement - Routine Cardiovascular Exam Present: RRR - Routine Abdominal Exam Present: soft - Routine Neurological Exam Present: alert - Detailed Neurological Exam: Coma Scale Eye Opening: Spontaneous Assessment and Plan - Assessment (1) Acute renal failure (ARF) Code(s): N17.9 - Acute kidney failure, unspecified Status: Acute Qualifiers: Acute renal failure type: unspecified Qualified Code(s): N17.9 - Acute kidney failure, unspecified Plan: Acute kidney injury with a creatinine level of 14.2 and potassium level of 5.1 at time of consult She has had a recent admission in March and was followed by Dr. Grissom and at that time creatinine was has high as 9.1, admitted with uremic encephalopathy, sepsis, and UTI. At that time patient received 2-3 hemodialysis and was discharged with a creatinine of 1.70 Has history of hypertension for over 10 years so most likely has chronic kidney disease from hypertension or renovascular disease Acute kidney injury possibly ATN from UTI/dehydration/hypotension Renal ultrasound with findings suggestive of CKD Continue IVFs avoid hypotension. Adjusted IVFs yesterday to D5W + 150 meq NaHCO3 at 100cc/hour Creatinine 14 -> 13 -> 12 -> 10 Improved UOP with 2.7L UOP - continue to monitor May need HD if little improvement, however increased UOP is encouraging. Avoid nephrotoxins including NSAIDS, IV contrast, and aminoglycosides. Will monitor urinary output and BMP (2) Hypertension Code(s): I10 - Essential (primary) hypertension Status: Acute Plan: Blood pressure on lower side receiving IVF (3) Urinary tract infection Code(s): N39.0 - Urinary tract infection, site not specified Status: Acute Plan: Urinalysis is abnormal Continue Rocephin GNR in urine - follow cultures
[2018-04-17] MEDS ORDERED: Aluminum/Magnesium/Simethacone Susp 30 ML UDC PO PRN (19:04)
[2018-04-17 21:39] LABS: Creatine Kinase 69 U/L (26-192)
[2018-04-18 07:22] LABS: Calcium 7.6 mg/dL (8.5-10.1); Carbon Dioxide 31.6 meq/L (21.0-32.0); Potassium 3.2 meq/L (3.5-5.1)
[2018-04-18] MEDS: ARIPiprazole 10 MG Tablet PO SCH (09:55)
[2018-04-18] MEDS: Sodium Bicarbonate 8.4% Inj 150 MEQ in Dextrose 5% in Water Inj 850 ML IV.CONT SCH ×4 (10:13→21:12)
--- NOTE | 2018-04-18 10:26 | P.PN ---
Subjective Interval history: Follow-up uremic encephalopathy/chronic kidney disease stage IV/episode of hypoglycemia however asymptomatic April 16, 2018-patient seen and examined, alert and oriented x3, blood glucose low however patient is asymptomatic. April 17, 2018-patient seen and examined slow improvement of renal indices. Afebrile. Patient states she is having good urine output April 18, 2018-patient seen and examined, creatinine down to 7.72 and patient states she is having good urine output. Complains of back pain and requesting that she be placed back on her medicine. Physical Exam Vital signs: Vital Signs 04/17/18 12:00 04/17/18 15:41 04/17/18 16:00 Temperature 98.0 F 98.1 F Pulse Rate 82 84 87 Respiratory Rate 18 18 Blood Pressure 112/77 148/98 H Pulse Oximetry 95 96 04/17/18 20:00 04/18/18 00:00 04/18/18 02:00 Temperature 98.9 F 99.4 F 99.4 F Pulse Rate 95 H 100 H 92 H Respiratory Rate 18 18 18 Blood Pressure 131/82 136/87 103/71 Pulse Oximetry 93 L 101 H 92 L 04/18/18 04:00 04/18/18 04:36 04/18/18 08:00 Temperature 99.1 F 98.2 F Pulse Rate 86 92 H 84 Respiratory Rate 18 16 Blood Pressure 92/54 L 125/81 Pulse Oximetry 98 94 L Intake & Output 04/17/18 04/18/18 04/18/18 18:59 06:59 18:59 Intake Total 1580 / 1580 1480 / 1480 1000 / 1000 Output Total 3800 / 3800 2800 / 2800 Balance -2220 / -2220 -1320 / -1320 1000 / 1000 Weight 68.1 kg Intake: IV 1100 / 1100 1000 / 1000 1000 / 1000 Sodium Bicarbonate 8.4% Inj 150 1000 / 1000 1000 / 1000 1000 / 1000 MEQ In D5W Inj 850 ML @ 100 mls/hr IV.CONT .Q10H JACK Rx#: [id number] Rocephin Inj 1,000 MG In NS Inj 100 / 100 100 ML @ 200 mls/hr IV.SIG Q24H JACK Rx#:[id number] Oral 480 / 480 480 / 480 Output: Urine 3800 / 3800 2800 / 2800 Other: # Bowel Movements 1 3 Narrative: GENERAL: NAD SKIN: Warm and dry. HEAD: Normocephalic. EYES: No scleral icterus. No injection or drainage. NECK: Supple, trachea midline. No JVD or lymphadenopathy. CARDIOVASCULAR: Regular rate and rhythm without murmurs, gallops, or rubs. RESPIRATORY: Breath sounds equal bilaterally. No accessory muscle use. GASTROINTESTINAL: Abdomen soft, non-tender, nondistended. MUSCULOSKELETAL: No cyanosis, or edema. BACK: Nontender without obvious deformity. No CVA tenderness. Results - Labs CBC & Chem 7: 04/17/18 06:55 04/18/18 06:12 Laboratory Results - last 24 hr 04/17/18 04/18/18 20:56 06:12 Sodium 141 Potassium 3.2 L Chloride 98 D Carbon Dioxide 31.6 D Anion Gap 11 BUN 39 H Creatinine 7.72 H Estimated GFR 5 L Random Glucose 110 H Calcium 7.6 L Total Creatine Kinase 69 Troponin I Less than 0.02 L Microbiology 04/15/18 10:20 Clean Catch Urine Urine Culture - Final Klebsiella pneumoniae 04/15/18 08:50 Blood - Peripheral Aerobic Blood Culture - Preliminary No growth in 2 days 04/15/18 08:50 Blood - Peripheral Anaerobic Blood Culture - Preliminary No growth in 2 days 04/15/18 08:55 Blood - Peripheral Aerobic Blood Culture - Preliminary No growth in 2 days 04/15/18 08:55 Blood - Peripheral Anaerobic Blood Culture - Preliminary No growth in 2 days Assessment and Plan - Assessment (1) Uremic encephalopathy Code(s): G93.41 - Metabolic encephalopathy; N19 - Unspecified kidney failure Status: Resolved (2) Acute renal failure (ARF) Code(s): N17.9 - Acute kidney failure, unspecified Status: Acute (3) Hypertension Code(s): I10 - Essential (primary) hypertension Status: Acute (4) Urinary tract infection Code(s): N39.0 - Urinary tract infection, site not specified Status: Acute (5) Metabolic acidosis Code(s): E87.2 - Acidosis Status: Acute (6) Hypoglycemia, unspecified Code(s): E16.2 - Hypoglycemia, unspecified Status: Acute - Plan 53-year-old with Uremic encephalopathy versus metabolic encephalopathy-resolved Acute renal failure--improving Metabolic acidosis Chest x-ray without any cardiopulmonary disease Appreciate input from nephrology has been consulted Continue aggressive IV fluid hydration with D5W with NAhCO3 Renal ultrasound with finding of 1. Mildly increased cortical echogenicity of the kidneys suggesting medical renal disease. 2. No evidence of hydronephrosis. Avoid all nephrotoxic Monitor BUN and creatinine, creatinine down to 7.72 today April 18, 2018 Due to slow improvement of renal function, patient may need HD Hypoglycemia associated with chronic kidney disease/end-stage renal disease Improved and continue with treatment per hypoglycemia protocol Urinary tract infection-Klebsiella pneumonia Currently on Ceftin 500 mg p.o. twice daily 5 days Tobacco abuse Tobacco counseling cessation provided Continue nicotine patch Hypertension Currently normotensive Depression Continue outpatient medications Hyperlipemia Continue statin Chronic pain syndrome Resume outpatient therapy DVT prophylaxis: Bilateral SCDs (2) Acute renal failure (ARF) Qualifiers: Acute renal failure type: unspecified Qualified Code(s): N17.9 - Acute kidney failure, unspecified
--- NOTE | 2018-04-18 14:27 | ECG ---
Date Performed: 04/17/2018 Time Performed: 19:10:26 PTAGE: 53 years EKG: Sinus rhythm Lateral ST changes are nonspecific Since the previous tracing, no significant change noted [place] e ECG PREVIOUS TRACING : 04/15/2018 08.25 DOCTOR: Jad Leon Interpretating Date/Time 04/18/2018 14:26:58
--- NOTE | 2018-04-18 15:52 | P.PNNP ---
Subjective Interval history: Denies any shortness of breath. Creatinine improving at 7.72. IVF are infusing. <Ruby Fernandez - Last Filed: 04/18/18 15:44> Physical Exam Vital signs: Vital Signs 04/17/18 16:00 04/17/18 20:00 04/18/18 00:00 Temperature 98.1 F 98.9 F 99.4 F Pulse Rate 87 95 H 100 H Respiratory Rate 18 18 18 Blood Pressure 148/98 H 131/82 136/87 Pulse Oximetry 96 93 L 101 H 04/18/18 02:00 04/18/18 04:00 04/18/18 04:36 Temperature 99.4 F 99.1 F Pulse Rate 92 H 86 92 H Respiratory Rate 18 18 Blood Pressure 103/71 92/54 L Pulse Oximetry 92 L 98 04/18/18 08:00 04/18/18 12:00 04/18/18 12:47 Temperature 98.2 F 98.4 F Pulse Rate 77 81 78 Respiratory Rate 16 16 Blood Pressure 125/81 92/55 L 103/71 Pulse Oximetry 94 L 95 Intake & Output 04/17/18 04/18/18 04/18/18 18:59 06:59 18:59 Intake Total 1580 / 1580 1480 / 1480 1000 / 1000 Output Total 3800 / 3800 2800 / 2800 750 / 750 Balance -2220 / -2220 -1320 / -1320 250 / 250 Weight 68.1 kg Intake: IV 1100 / 1100 1000 / 1000 1000 / 1000 Sodium Bicarbonate 8.4% Inj 150 1000 / 1000 1000 / 1000 1000 / 1000 MEQ In D5W Inj 850 ML @ 100 mls/hr IV.CONT .Q10H [facility] Rx#: [id number] Rocephin Inj 1,000 MG In NS Inj 100 / 100 100 ML @ 200 mls/hr IV.SIG Q24H [facility] Rx#:[id number] Oral 480 / 480 480 / 480 Output: Urine 3800 / 3800 2800 / 2800 750 / 750 Other: Date of Last Bowel Movement 04/17/18 # Bowel Movements 1 3 - Constitutional no acute distress - Routine HEENT Exam Head: Present: normocephalic ENT: Present: mucous membranes moist - Routine Neck Exam Present: supple. Absent: JVD - Routine Respiratory Exam Present: CTA bilaterally. Absent: rhonchi, crackles - Routine Cardiovascular Exam Present: RRR. Absent: murmur - Routine Abdominal Exam Present: soft, normoactive bowel sounds - Routine Extremities Exam Absent: edema - Routine Skin Exam Present: dry, warm - Routine Neurological Exam Present: alert, oriented X3 <Ruby Fernandez - Last Filed: 04/18/18 15:44> Vital signs: Vital Signs 04/18/18 00:00 04/18/18 02:00 04/18/18 04:00 Temperature 99.4 F 99.4 F Pulse Rate 100 H 92 H 86 Respiratory Rate 18 18 Blood Pressure 136/87 103/71 Pulse Oximetry 101 H 92 L 04/18/18 04:36 04/18/18 08:00 04/18/18 12:00 Temperature 99.1 F 98.2 F 98.4 F Pulse Rate 92 H 77 81 Respiratory Rate 18 16 16 Blood Pressure 92/54 L 125/81 92/55 L Pulse Oximetry 98 94 L 95 04/18/18 12:47 04/18/18 16:00 04/18/18 16:05 Temperature 97.9 F Pulse Rate 78 74 78 Respiratory Rate 17 Blood Pressure 103/71 107/72 Pulse Oximetry 95 Intake & Output 04/18/18 04/18/18 04/19/18 06:59 18:59 06:59 Intake Total 1480 / 1480 1600 / 1600 1000 / 1000 Output Total 2800 / 2800 2049 Balance -1320 / -1320 -450 / -450 1000 / 1000 Weight 68.1 kg Intake: IV 1000 / 1000 1000 / 1000 1000 / 1000 Sodium Bicarbonate 8.4% Inj 150 1000 / 1000 1000 / 1000 1000 / 1000 MEQ In D5W Inj 850 ML @ 100 mls/hr IV.CONT .Q10H [facility] Rx#: [id number] Oral 480 / 480 600 / 600 Output: Urine 2800 / 2800 2049 Other: Date of Last Bowel Movement 04/17/18 # Bowel Movements 3 0 <Cirilo Vargas - Last Filed: 04/18/18 21:14> Assessment and Plan - Assessment (1) Acute renal failure (ARF) Code(s): N17.9 - Acute kidney failure, unspecified Status: Acute Qualifiers: Acute renal failure type: unspecified Qualified Code(s): N17.9 - Acute kidney failure, unspecified Plan: Acute kidney injury with a creatinine level of 14.2 and potassium level of 5.1 at time of consult She has had a recent admission in March and was followed by Dr. Grissom and at that time creatinine was has high as 9.1, admitted with uremic encephalopathy, sepsis, and UTI. At that time patient received 2-3 hemodialysis and was discharged with a creatinine of 1.70 Has history of hypertension for over 10 years so most likely has chronic kidney disease from hypertension or renovascular disease Acute kidney injury possibly ATN from UTI/dehydration/hypotension Renal ultrasound with findings suggestive of CKD Continue IVFs D5W + 150 meq NaHCO3 at 100cc/hour Creatinine 14 -> 13 -> 12 -> 10->7.2 Good urinary output- continue to monitor Hypokalemia replacement has been given Avoid nephrotoxins including NSAIDS, IV contrast, and aminoglycosides. Will monitor urinary output and BMP (2) Hypertension Code(s): I10 - Essential (primary) hypertension Status: Acute Plan: Blood pressure on lower side receiving IVF (3) Urinary tract infection Code(s): N39.0 - Urinary tract infection, site not specified Status: Acute Plan: Continue antibiotics <Ruby Fernandez - Last Filed: 04/18/18 15:44> - Assessment (1) Acute renal failure (ARF) Code(s): N17.9 - Acute kidney failure, unspecified Status: Acute Qualifiers: Acute renal failure type: unspecified Qualified Code(s): N17.9 - Acute kidney failure, unspecified (2) Hypertension Code(s): I10 - Essential (primary) hypertension Status: Acute (3) Urinary tract infection Code(s): N39.0 - Urinary tract infection, site not specified Status: Acute - Attending Attestation Patient seen and examined, agree with above. Creatinine is improving, non oliguric. <Cirilo Vargas - Last Filed: 04/18/18 21:14>
[2018-04-18] MEDS: Temazepam 15 MG Capsule PO PRN (21:12)
[2018-04-19] MEDS: Sodium Bicarbonate 8.4% Inj 150 MEQ in Dextrose 5% in Water Inj 850 ML IV.CONT SCH ×4 (06:04→15:41)
[2018-04-19] MEDS: ARIPiprazole 10 MG Tablet PO SCH (08:03)
--- NOTE | 2018-04-19 10:22 | P.PNNP ---
Subjective Interval history: Resting comfortable with no complaints. No new labs available. Continues to make good urine output. <Ruby Fernandez - Last Filed: 04/19/18 10:18> Physical Exam Vital signs: Vital Signs 04/18/18 12:00 04/18/18 12:47 04/18/18 16:00 Temperature 98.4 F 97.9 F Pulse Rate 81 78 74 Respiratory Rate 16 17 Blood Pressure 92/55 L 103/71 107/72 Pulse Oximetry 95 95 04/18/18 16:05 04/18/18 19:39 04/18/18 20:00 Temperature 97.9 F Pulse Rate 78 74 74 Respiratory Rate 16 Blood Pressure 114/73 Pulse Oximetry 93 L 04/18/18 23:44 04/18/18 23:56 04/19/18 04:00 Temperature 98 F 98.1 F Pulse Rate 75 73 77 Respiratory Rate 16 16 Blood Pressure 109/69 117/70 Pulse Oximetry 96 97 04/19/18 07:52 04/19/18 08:00 Temperature 97.6 F Pulse Rate 71 62 Respiratory Rate 17 Blood Pressure 128/83 Pulse Oximetry 94 L Intake & Output 04/18/18 04/19/18 04/19/18 18:59 06:59 18:59 Intake Total 1600 / 1600 2960 / 2960 Output Total 2049 / 2049 2500 / 2500 650 / 650 Balance -450 / -450 460 / 460 -650 / -650 Weight 67.5 kg Intake: IV 1000 / 1000 2000 / 2000 Sodium Bicarbonate 8.4% Inj 150 1000 / 1000 2000 / 2000 MEQ In D5W Inj 850 ML @ 100 mls/hr IV.CONT .Q10H [facility] Rx#: [id number] Oral 600 / 600 960 / 960 Output: Urine 2049 2500 / 2500 650 / 650 Other: Date of Last Bowel Movement 04/17/18 04/17/18 # Bowel Movements 0 0 - Constitutional no acute distress, cooperative - Routine HEENT Exam Head: Present: normocephalic ENT: Present: mucous membranes moist - Routine Neck Exam Present: supple. Absent: JVD - Routine Respiratory Exam Present: CTA bilaterally - Routine Cardiovascular Exam Present: RRR. Absent: murmur - Routine Abdominal Exam Present: soft, normoactive bowel sounds - Routine Skin Exam Present: intact, dry, warm - Routine Neurological Exam Present: alert, oriented X3 - Routine Psychiatric Exam Present: cooperative <Ruby Fernandez - Last Filed: 04/19/18 10:18> Vital signs: Vital Signs 04/18/18 23:44 04/18/18 23:56 04/19/18 04:00 Temperature 98 F 98.1 F Pulse Rate 75 73 77 Respiratory Rate 16 16 Blood Pressure 109/69 117/70 Pulse Oximetry 96 97 04/19/18 07:52 04/19/18 08:00 04/19/18 11:58 Temperature 97.6 F Pulse Rate 71 62 68 Respiratory Rate 17 Blood Pressure 128/83 Pulse Oximetry 94 L 04/19/18 12:00 04/19/18 15:53 04/19/18 16:00 Temperature 98.0 F 98.1 F Pulse Rate 66 59 L 66 Respiratory Rate 17 17 Blood Pressure 112/78 109/83 Pulse Oximetry 93 L 93 L 04/19/18 20:00 Temperature 98.2 F Pulse Rate 83 Respiratory Rate 18 Blood Pressure 123/86 Pulse Oximetry 94 L Intake & Output 04/19/18 04/19/18 04/20/18 06:59 18:59 06:59 Intake Total 2960 / 2960 2440 / 2440 Output Total 2500 / 2500 3550 / 3550 250 / 250 Balance 460 / 460 -1110 / -1110 -250 / -250 Weight 67.5 kg Intake: IV 1999 / 1999 1000 / 1000 Sodium Bicarbonate 8.4% Inj 150 1999 / 1999 1000 / 1000 MEQ In D5W Inj 850 ML @ 100 mls/hr IV.CONT .Q10H [facility] Rx#: [id number] Oral 960 / 960 1440 / 1440 Output: Urine 2500 / 2500 3550 / 3550 250 / 250 Other: # Voids 2 Date of Last Bowel Movement 04/19/18 # Bowel Movements 0 1 <Cirilo Vargas - Last Filed: 04/19/18 21:37> Assessment and Plan - Assessment (1) Acute renal failure (ARF) Code(s): N17.9 - Acute kidney failure, unspecified Status: Acute Qualifiers: Acute renal failure type: unspecified Qualified Code(s): N17.9 - Acute kidney failure, unspecified Plan: Acute kidney injury with a creatinine level of 14.2 and potassium level of 5.1 at time of consult She has had a recent admission in March and was followed by Dr. Grissom and at that time creatinine was has high as 9.1, admitted with uremic encephalopathy, sepsis, and UTI. At that time patient received 2-3 hemodialysis and was discharged with a creatinine of 1.70 Has history of hypertension for over 10 years so most likely has chronic kidney disease from hypertension or renovascular disease Acute kidney injury possibly ATN from UTI/dehydration/hypotension Renal ultrasound with findings suggestive of CKD Continue IVFs D5W + 150 meq NaHCO3 at 100cc/hour labs pending today Creatinine 14 -> 13 -> 12 -> 10->7.2 yesterday Good urinary output- continue to monitor Avoid nephrotoxins including NSAIDS, IV contrast, and aminoglycosides. Will monitor urinary output and BMP Labs pending (2) Hypertension Code(s): I10 - Essential (primary) hypertension Status: Acute Plan: Blood pressure on lower side receiving IVF (3) Urinary tract infection Code(s): N39.0 - Urinary tract infection, site not specified Status: Acute Plan: Continue antibiotics <Ruby Fernandez - Last Filed: 04/19/18 10:18> - Assessment (1) Acute renal failure (ARF) Code(s): N17.9 - Acute kidney failure, unspecified Status: Acute Qualifiers: Acute renal failure type: unspecified Qualified Code(s): N17.9 - Acute kidney failure, unspecified (2) Hypertension Code(s): I10 - Essential (primary) hypertension Status: Acute (3) Urinary tract infection Code(s): N39.0 - Urinary tract infection, site not specified Status: Acute - Attending Attestation Patient seen and examine, agree with above. Creatinine continue to improve, now 4.6. K is low, replaced. <Cirilo Vargas - Last Filed: 04/19/18 21:37>
--- NOTE | 2018-04-19 11:40 | P.PN ---
Subjective Interval history: Follow-up uremic encephalopathy/chronic kidney disease stage IV/episode of hypoglycemia however asymptomatic April 16, 2018-patient seen and examined, alert and oriented x3, blood glucose low however patient is asymptomatic. April 17, 2018-patient seen and examined slow improvement of renal indices. Afebrile. Patient states she is having good urine output April 18, 2018-patient seen and examined, creatinine down to 7.72 and patient states she is having good urine output. Complains of back pain and requesting that she be placed back on her medicine. April 19, 2018-patient seen and examined, good urine output, no chest pain or shortness of breath. Labs pending this morning Physical Exam Vital signs: Vital Signs 04/18/18 12:00 04/18/18 12:47 04/18/18 16:00 Temperature 98.4 F 97.9 F Pulse Rate 81 78 74 Respiratory Rate 16 17 Blood Pressure 92/55 L 103/71 107/72 Pulse Oximetry 95 95 04/18/18 16:05 04/18/18 19:39 04/18/18 20:00 Temperature 97.9 F Pulse Rate 78 74 74 Respiratory Rate 16 Blood Pressure 114/73 Pulse Oximetry 93 L 04/18/18 23:44 04/18/18 23:56 04/19/18 04:00 Temperature 98 F 98.1 F Pulse Rate 75 73 77 Respiratory Rate 16 16 Blood Pressure 109/69 117/70 Pulse Oximetry 96 97 04/19/18 07:52 04/19/18 08:00 Temperature 97.6 F Pulse Rate 71 62 Respiratory Rate 17 Blood Pressure 128/83 Pulse Oximetry 94 L Intake & Output 04/18/18 04/19/18 04/19/18 18:59 06:59 18:59 Intake Total 1600 / 1600 2960 / 2960 Output Total 2049 2500 / 2500 650 / 650 Balance -450 / -450 460 / 460 -650 / -650 Weight 67.5 kg Intake: IV 1000 / 1000 1999 / 1999 Sodium Bicarbonate 8.4% Inj 150 1000 / 1000 2000 / 2000 MEQ In D5W Inj 850 ML @ 100 mls/hr IV.CONT .Q10H [facility] Rx#: [id number] Oral 600 / 600 960 / 960 Output: Urine 2049 2500 / 2500 650 / 650 Other: Date of Last Bowel Movement 04/17/18 04/17/18 # Bowel Movements 0 0 Narrative: GENERAL: NAD SKIN: Warm and dry. HEAD: Normocephalic. EYES: No scleral icterus. No injection or drainage. NECK: Supple, trachea midline. No JVD or lymphadenopathy. CARDIOVASCULAR: Regular rate and rhythm without murmurs, gallops, or rubs. RESPIRATORY: Breath sounds equal bilaterally. No accessory muscle use. GASTROINTESTINAL: Abdomen soft, non-tender, nondistended. MUSCULOSKELETAL: No cyanosis, or edema. BACK: Nontender without obvious deformity. No CVA tenderness. Results - Labs CBC & Chem 7: 04/17/18 06:55 04/18/18 06:12 Microbiology 04/15/18 08:50 Blood - Peripheral Aerobic Blood Culture - Preliminary No growth in 4 days 04/15/18 08:50 Blood - Peripheral Anaerobic Blood Culture - Preliminary No growth in 4 days 04/15/18 08:55 Blood - Peripheral Aerobic Blood Culture - Preliminary No growth in 4 days 04/15/18 08:55 Blood - Peripheral Anaerobic Blood Culture - Preliminary No growth in 4 days - Procedures None Assessment and Plan - Assessment (1) Uremic encephalopathy Code(s): G93.41 - Metabolic encephalopathy; N19 - Unspecified kidney failure Status: Resolved (2) Acute renal failure (ARF) Code(s): N17.9 - Acute kidney failure, unspecified Status: Acute (3) Hypertension Code(s): I10 - Essential (primary) hypertension Status: Acute (4) Urinary tract infection Code(s): N39.0 - Urinary tract infection, site not specified Status: Acute (5) Metabolic acidosis Code(s): E87.2 - Acidosis Status: Acute (6) Hypoglycemia, unspecified Code(s): E16.2 - Hypoglycemia, unspecified Status: Acute - Plan 53-year-old with Uremic encephalopathy versus metabolic encephalopathy-resolved Acute renal failure--improving Metabolic acidosis Chest x-ray without any cardiopulmonary disease Appreciate input from nephrology has been consulted Continue aggressive IV fluid hydration with D5W with NAhCO3 Renal ultrasound with finding of 1. Mildly increased cortical echogenicity of the kidneys suggesting medical renal disease. 2. No evidence of hydronephrosis. Avoid all nephrotoxic Monitor BUN and creatinine, creatinine down to 7.72 as of April 18, 2018; labs pending this a.m. April 19, 2018 Hypoglycemia associated with chronic kidney disease/end-stage renal disease Improved and continue with treatment per hypoglycemia protocol Urinary tract infection-Klebsiella pneumonia Currently on Ceftin 500 mg p.o. twice daily 5 days Tobacco abuse Tobacco counseling cessation provided Continue nicotine patch Hypertension Currently normotensive Depression Continue outpatient medications Hyperlipemia Continue statin Chronic pain syndrome Resume outpatient therapy DVT prophylaxis: Bilateral SCDs (2) Acute renal failure (ARF) Qualifiers: Acute renal failure type: unspecified Qualified Code(s): N17.9 - Acute kidney failure, unspecified
[2018-04-19 14:30] LABS: Albumin 2.7 g/dL (3.4-5.0); Calcium 7.4 mg/dL (8.5-10.1); Carbon Dioxide 38.2 meq/L (21.0-32.0); Phosphorus 3.5 mg/dL (2.5-4.9); Potassium 3.1 meq/L (3.5-5.1)
[2018-04-19] MEDS: Temazepam 15 MG Capsule PO PRN (20:58)
[2018-04-20] MEDS: Sodium Bicarbonate 8.4% Inj 150 MEQ in Dextrose 5% in Water Inj 850 ML IV.CONT SCH ×2 (00:08)
[2018-04-20] MEDS: ARIPiprazole 10 MG Tablet PO SCH (08:11)
--- NOTE | 2018-04-20 11:45 | P.PN ---
Subjective Interval history: Follow-up uremic encephalopathy/chronic kidney disease stage IV/episode of hypoglycemia however asymptomatic April 16, 2018-patient seen and examined, alert and oriented x3, blood glucose low however patient is asymptomatic. April 17, 2018-patient seen and examined slow improvement of renal indices. Afebrile. Patient states she is having good urine output April 18, 2018-patient seen and examined, creatinine down to 7.72 and patient states she is having good urine output. Complains of back pain and requesting that she be placed back on her medicine. April 19, 2018-patient seen and examined, good urine output, no chest pain or shortness of breath. Labs pending this morning April 20, 2018-patient seen and examined, BMP pending today however patient reports significant improvements and denies any acute event overnight. Creatinine yesterday was 4.6. She reports good urinary output Physical Exam Vital signs: Vital Signs 04/19/18 11:58 04/19/18 12:00 04/19/18 15:53 Temperature 98.0 F Pulse Rate 68 66 59 L Respiratory Rate 17 Blood Pressure 112/78 Pulse Oximetry 93 L 04/19/18 16:00 04/19/18 19:42 04/19/18 20:00 Temperature 98.1 F 98.2 F Pulse Rate 66 94 H 83 Respiratory Rate 17 18 Blood Pressure 109/83 123/86 Pulse Oximetry 93 L 94 L 04/19/18 23:37 04/19/18 23:42 04/20/18 04:00 Temperature 98.0 F 98.1 F Pulse Rate 83 76 68 Respiratory Rate 14 14 Blood Pressure 110/57 L 113/50 L Pulse Oximetry 95 95 04/20/18 04:09 04/20/18 08:00 Temperature 98.7 F Pulse Rate 76 61 Respiratory Rate 17 Blood Pressure 144/89 H Pulse Oximetry 98 Intake & Output 04/19/18 04/20/18 04/20/18 18:59 06:59 18:59 Intake Total 2440 / 2440 2100 / 2100 Output Total 3550 / 3550 3025 / 3025 Balance -1110 / -1110 -925 / -925 Weight 66.6 kg Intake: IV 1000 / 1000 1000 / 1000 Sodium Bicarbonate 8.4% Inj 150 1000 / 1000 1000 / 1000 MEQ In D5W Inj 850 ML @ 100 mls/hr IV.CONT .Q10H [facility] Rx#: [id number] Oral 1440 / 1440 1100 / 1100 Output: Urine 3550 / 3550 3025 / 3025 Other: # Voids 2 Date of Last Bowel Movement 04/19/18 04/19/18 # Bowel Movements 1 1 Narrative: GENERAL: NAD SKIN: Warm and dry. HEAD: Normocephalic. EYES: No scleral icterus. No injection or drainage. NECK: Supple, trachea midline. No JVD or lymphadenopathy. CARDIOVASCULAR: Regular rate and rhythm without murmurs, gallops, or rubs. RESPIRATORY: Breath sounds equal bilaterally. No accessory muscle use. GASTROINTESTINAL: Abdomen soft, non-tender, nondistended. MUSCULOSKELETAL: No cyanosis, or edema. BACK: Nontender without obvious deformity. No CVA tenderness. Results - Labs CBC & Chem 7: 04/17/18 06:55 04/19/18 12:05 Laboratory Results - last 24 hr 04/19/18 12:05 Sodium 138 Potassium 3.1 L Chloride 92 L Carbon Dioxide 38.2 H Anion Gap 8 BUN 28 H Creatinine 4.60 H Estimated GFR 10 L Random Glucose 103 Calcium 7.4 L* Phosphorus 3.5 Albumin 2.7 L Microbiology 04/15/18 08:50 Blood - Peripheral Aerobic Blood Culture - Final No growth in 5 days 04/15/18 08:50 Blood - Peripheral Anaerobic Blood Culture - Final No growth in 5 days 04/15/18 08:55 Blood - Peripheral Aerobic Blood Culture - Final No growth in 5 days 04/15/18 08:55 Blood - Peripheral Anaerobic Blood Culture - Final No growth in 5 days - Procedures None Assessment and Plan - Assessment (1) Uremic encephalopathy Code(s): G93.41 - Metabolic encephalopathy; N19 - Unspecified kidney failure Status: Resolved (2) Acute renal failure (ARF) Code(s): N17.9 - Acute kidney failure, unspecified Status: Acute (3) Hypertension Code(s): I10 - Essential (primary) hypertension Status: Acute (4) Urinary tract infection Code(s): N39.0 - Urinary tract infection, site not specified Status: Acute (5) Metabolic acidosis Code(s): E87.2 - Acidosis Status: Resolved (6) Hypoglycemia, unspecified Code(s): E16.2 - Hypoglycemia, unspecified Status: Acute - Plan 53-year-old with Uremic encephalopathy versus metabolic encephalopathy-resolved Acute renal failure--improving Metabolic acidosis Chest x-ray without any cardiopulmonary disease Appreciate input from nephrology has been consulted Continue aggressive IV fluid hydration with D5W with NAhCO3 Renal ultrasound with finding of 1. Mildly increased cortical echogenicity of the kidneys suggesting medical renal disease. 2. No evidence of hydronephrosis. Avoid all nephrotoxic Monitor BUN and creatinine, creatinine down to 4.6 as of April 19, 2018; labs pending this a.m. April 20, 2018 Hypoglycemia associated with chronic kidney disease/end-stage renal disease Improved and continue with treatment per hypoglycemia protocol Urinary tract infection-Klebsiella pneumonia Currently on Ceftin 500 mg p.o. twice daily 5 days total Tobacco abuse Tobacco counseling cessation provided Continue nicotine patch Hypertension Currently normotensive Depression Continue outpatient medications Hyperlipemia Continue statin Chronic pain syndrome Resume outpatient therapy DVT prophylaxis: Bilateral SCDs (2) Acute renal failure (ARF) Qualifiers: Acute renal failure type: unspecified Qualified Code(s): N17.9 - Acute kidney failure, unspecified
--- NOTE | 2018-04-20 11:55 | P.PNNP ---
Subjective Interval history: Patient is alert and oriented. Creatinine 4.60 labs are pending today. <Ruby Fernandez - Last Filed: 04/20/18 11:48> Physical Exam Vital signs: Vital Signs 04/19/18 11:58 04/19/18 12:00 04/19/18 15:53 Temperature 98.0 F Pulse Rate 68 66 59 L Respiratory Rate 17 Blood Pressure 112/78 Pulse Oximetry 93 L 04/19/18 16:00 04/19/18 19:42 04/19/18 20:00 Temperature 98.1 F 98.2 F Pulse Rate 66 94 H 83 Respiratory Rate 17 18 Blood Pressure 109/83 123/86 Pulse Oximetry 93 L 94 L 04/19/18 23:37 04/19/18 23:42 04/20/18 04:00 Temperature 98.0 F 98.1 F Pulse Rate 83 76 68 Respiratory Rate 14 14 Blood Pressure 110/57 L 113/50 L Pulse Oximetry 95 95 04/20/18 04:09 04/20/18 08:00 Temperature 98.7 F Pulse Rate 76 61 Respiratory Rate 17 Blood Pressure 144/89 H Pulse Oximetry 98 Intake & Output 04/19/18 04/20/18 04/20/18 18:59 06:59 18:59 Intake Total 2440 / 2440 2100 / 2100 Output Total 3550 / 3550 3025 / 3025 Balance -1110 / -1110 -925 / -925 Weight 66.6 kg Intake: IV 1000 / 1000 1000 / 1000 Sodium Bicarbonate 8.4% Inj 150 1000 / 1000 1000 / 1000 MEQ In D5W Inj 850 ML @ 100 mls/hr IV.CONT .Q10H [facility] Rx#: [id number] Oral 1440 / 1440 1100 / 1100 Output: Urine 3550 / 3550 3025 / 3025 Other: # Voids 2 Date of Last Bowel Movement 04/19/18 04/19/18 # Bowel Movements 1 1 - Constitutional no acute distress - Routine HEENT Exam Head: Present: normocephalic - Routine Neck Exam Present: supple. Absent: JVD - Routine Respiratory Exam Present: CTA bilaterally. Absent: rales, rhonchi - Routine Cardiovascular Exam Absent: murmur - Routine Abdominal Exam Present: soft, normoactive bowel sounds - Routine Extremities Exam Absent: edema - Routine Skin Exam Present: intact - Routine Neurological Exam Present: alert, oriented X3 - Routine Psychiatric Exam Present: cooperative <JimRuby - Last Filed: 04/20/18 11:48> Vital signs: Vital Signs 04/19/18 19:42 04/19/18 20:00 04/19/18 23:37 Temperature 98.2 F 98.0 F Pulse Rate 94 H 83 83 Respiratory Rate 18 14 Blood Pressure 123/86 110/57 L Pulse Oximetry 94 L 95 04/19/18 23:42 04/20/18 04:00 04/20/18 04:09 Temperature 98.1 F Pulse Rate 76 68 76 Respiratory Rate 14 Blood Pressure 113/50 L Pulse Oximetry 95 04/20/18 08:00 04/20/18 12:00 04/20/18 12:45 Temperature 98.7 F 98.1 F Pulse Rate 61 78 Respiratory Rate 17 17 Blood Pressure 144/89 H 112/80 Pulse Oximetry 98 99 90 L Intake & Output 04/20/18 04/20/18 04/21/18 06:59 18:59 06:59 Intake Total 2100 / 2100 Output Total 3025 / 3025 Balance -925 / -925 Weight 66.6 kg Intake: IV 1000 / 1000 Sodium Bicarbonate 8.4% Inj 150 1000 / 1000 MEQ In D5W Inj 850 ML @ 100 mls/hr IV.CONT .Q10H [facility] Rx#: [id number] Oral 1100 / 1100 Output: Urine 3025 / 3025 Other: # Voids 2 Date of Last Bowel Movement 04/19/18 # Bowel Movements 1 <Cirilo Vargas - Last Filed: 04/20/18 19:30> Assessment and Plan - Assessment (1) Acute renal failure (ARF) Code(s): N17.9 - Acute kidney failure, unspecified Status: Acute Qualifiers: Acute renal failure type: unspecified Qualified Code(s): N17.9 - Acute kidney failure, unspecified Plan: Acute kidney injury with a creatinine level of 14.2 and potassium level of 5.1 at time of consult She has had a recent admission in March and was followed by Dr. Grissom and at that time creatinine was has high as 9.1, admitted with uremic encephalopathy, sepsis, and UTI. At that time patient received 2-3 hemodialysis and was discharged with a creatinine of 1.70 Has history of hypertension for over 10 years so most likely has chronic kidney disease from hypertension or renovascular disease Acute kidney injury possibly ATN from UTI/dehydration/hypotension Renal ultrasound with findings suggestive of CKD Creatinine 14 -> 13 -> 12 -> 10->7.2 ->4.2 Good urinary output- continue to monitor Discontinue IVF's Avoid nephrotoxins including NSAIDS, IV contrast, and aminoglycosides. Will monitor urinary output and BMP Labs pending if creatinine continues to improve patient can be discharged per Nephrology stand point Will need to follow up outpatient with nephrology (2) Hypertension Code(s): I10 - Essential (primary) hypertension Status: Acute Plan: Well controlled (3) Urinary tract infection Code(s): N39.0 - Urinary tract infection, site not specified Status: Acute Plan: per attending <Ruby Fernandez - Last Filed: 04/20/18 11:48> - Assessment (1) Acute renal failure (ARF) Code(s): N17.9 - Acute kidney failure, unspecified Status: Acute Qualifiers: Acute renal failure type: unspecified Qualified Code(s): N17.9 - Acute kidney failure, unspecified (2) Hypertension Code(s): I10 - Essential (primary) hypertension Status: Acute (3) Urinary tract infection Code(s): N39.0 - Urinary tract infection, site not specified Status: Acute - Attending Attestation Creatinine continue to improve, now 3.1, K was low and replaced. For discharge, to follow with Dr. Grissom. <Cirilo Vargas - Last Filed: 04/20/18 19:30>
[2018-04-20 11:58] LABS: Calcium 7.7 mg/dL (8.5-10.1); Carbon Dioxide 35.1 meq/L (21.0-32.0)
--- NOTE | 2018-04-20 14:07 | P.DS ---
Date of admission: 04/15/18 11:03 Primary care physician: Juan R Ruth Anticipated date of discharge: 04/20/18 Brief History from admission: 53-year-old female with a past medical history of hypertension, depression, and previously admitted in hospital secondary to worsening renal function and did receive hemodialysis at a time however with renal improvement she was discharged home, was brought to the ED today for evaluation of acute onset of altered mental status change, confusion and dizziness. While in the ED, patient was found to have abnormal BUN and creatinine for which nephrology was consulted. Patient states that her boyfriend believes she may have passed out however she denies so .During my exam, she was alert and oriented 3. Abnormal lab include UA for which patient was given Rocephin IV 1 in the ED. She has no complaint of chest pain or shortness of breath. DS: Diagnosis - Discharge Diagnosis (1) Uremic encephalopathy Status: Resolved (2) Acute renal failure (ARF) Status: Acute (3) Hypertension Status: Acute (4) Urinary tract infection Status: Acute (5) Metabolic acidosis Status: Resolved (6) Hypoglycemia, unspecified Status: Acute DS: Summary Hospital Course: Uremic encephalopathy versus metabolic encephalopathy-resolved Acute renal failure--improving Metabolic acidosis Chest x-ray without any cardiopulmonary disease Appreciate input from nephrology has been consulted Continue aggressive IV fluid hydration with D5W with NAhCO3 Renal ultrasound with finding of 1. Mildly increased cortical echogenicity of the kidneys suggesting medical renal disease. 2. No evidence of hydronephrosis. Avoid all nephrotoxic Monitor BUN and creatinine, creatinine down to 4.6 as of April 19, 2018; creatinine down Hypoglycemia associated with chronic kidney disease/end-stage renal disease Improved and continue with treatment per hypoglycemia protocol Urinary tract infection-Klebsiella pneumonia Currently on Ceftin 500 mg p.o. twice daily 5 days total Tobacco abuse Tobacco counseling cessation provided Continue nicotine patch Hypertension Currently normotensive Depression Continue outpatient medications Hyperlipemia Continue statin Chronic pain syndrome Resume outpatient therapy DVT prophylaxis: Bilateral SCDs - Time Spent with Patient Total time spent providing and/or coordinating discharge services: Less than 30 minutes - Quality: VTE Deep Vein Thrombosis/Pulmonary Embolism Present on Admission: No Exam Vital signs: Vital Signs 04/19/18 15:53 04/19/18 16:00 04/19/18 19:42 Temperature 98.1 F Pulse Rate 59 L 66 94 H Respiratory Rate 17 Blood Pressure 109/83 Pulse Oximetry 93 L 04/19/18 20:00 04/19/18 23:37 04/19/18 23:42 Temperature 98.2 F 98.0 F Pulse Rate 83 83 76 Respiratory Rate 18 14 Blood Pressure 123/86 110/57 L Pulse Oximetry 94 L 95 04/20/18 04:00 04/20/18 04:09 04/20/18 08:00 Temperature 98.1 F 98.7 F Pulse Rate 68 76 61 Respiratory Rate 14 17 Blood Pressure 113/50 L 144/89 H Pulse Oximetry 95 98 04/20/18 12:00 Temperature 98.1 F Pulse Rate 78 Respiratory Rate 17 Blood Pressure 112/80 Pulse Oximetry 99 Intake & Output 04/19/18 04/20/18 04/20/18 18:59 06:59 18:59 Intake Total 2440 / 2440 2100 / 2100 Output Total 3550 / 3550 3025 / 3025 Balance -1110 / -1110 -925 / -925 Weight 66.6 kg Intake: IV 1000 / 1000 1000 / 1000 Sodium Bicarbonate 8.4% Inj 150 1000 / 1000 1000 / 1000 MEQ In D5W Inj 850 ML @ 100 mls/hr IV.CONT .Q10H [facility] Rx#: [id number] Oral 1440 / 1440 1100 / 1100 Output: Urine 3550 / 3550 3025 / 3025 Other: # Voids 2 Date of Last Bowel Movement 04/19/18 04/19/18 # Bowel Movements 1 1 Narrative: GENERAL: NAD SKIN: Warm and dry. HEAD: Normocephalic. EYES: No scleral icterus. No injection or drainage. NECK: Supple, trachea midline. No JVD or lymphadenopathy. CARDIOVASCULAR: Regular rate and rhythm without murmurs, gallops, or rubs. RESPIRATORY: Breath sounds equal bilaterally. No accessory muscle use. GASTROINTESTINAL: Abdomen soft, non-tender, nondistended. MUSCULOSKELETAL: No cyanosis, or edema. BACK: Nontender without obvious deformity. No CVA tenderness. Results Procedures completed during hospitalization: None Labs on day of discharge: Labs from last 24 hours 04/20/18 04/19/18 11:05 12:05 Sodium 139 138 Potassium 3.0 L 3.1 L Chloride 94 L 92 L Carbon Dioxide 35.1 H 38.2 H Anion Gap 10 8 BUN 18 28 H Creatinine 3.17 H 4.60 H Estimated GFR 15 L 10 L Random Glucose 114 H 103 Calcium 7.7 L 7.4 L* Phosphorus 3.5 Albumin 2.7 L - Impressions ITS Impressions Abdomen/Bladder Ultrasound 04/15/18 00:00 CONCLUSION: 1. Mildly increased cortical echogenicity of the kidneys suggesting medical renal disease. 2. No evidence of hydronephrosis. Chest X-Ray 04/15/18 08:30 CONCLUSION: No acute intrathoracic disease. Stable examination. Discharge Plan - Discharge Disposition Patient Disposition: Discharge Home - Discharge Condition Condition: Good - Discharge Order Discharge Orders: Discharge Order (Routine); Ordered 04/20/18 Ordered By: Reginaldo Pacheco - Physicians Team Primary Care Provider: Juan R Ruth Attending Provider: Reginaldo Pacheco Other Providers: Cirilo Vargas MD ; Jude Roque
== END 2018-04-20 15:15 | disposition home or self-care (01) ==
LOC: NEPE 07:49 → NEDA 11:03 → N04 15:15
PROVIDERS: ADMIT Hospitalist; ATTEND Hospitalist